=== PATIENT | female | born 1945 ===

== ENCOUNTER 2021-04-13 14:25 | Outpatient (CLI) | payer MEDICARE, SELFPAY ==
[2021-04-13 14:53] LABS: Hemoglobin 14.2 g/dL (12.0-15.0); Mean Corpuscular HGB Conc 30.9 g/dl (32-36); Mean Corpuscular Hemoglobin 30.6 pg (26-34); Mean Corpuscular Volume 99.1 fl (80-100); Mean Platelet Volume 10.7 fl (7.4-10.4); Platelet Count Result 273 k/mm3 (150-375); Red Blood Count 4.64 M/mm3 (4.2-5.4); White Blood Count 6.7 K/mm3 (4.5-10.0)
[2021-04-13 16:06] LABS: Add Urine Microscopic? YES; Alanine Aminotransferase 34 U/L (4-35); Albumin Level 4.1 g/dL (3.5-5.1); Alkaline Phosphatase 129 U/L (38-126); Anion Gap 4 mmol/L (8-16); Appearance Urine Clear (Clear); Aspartate Amino Transferase 60 U/L (14-36); Bilirubin Urine Negative (Negative); Bilirubin,Total 0.4 mg/dL (0.2-1.3); Blood Urea Nitrogen 22 mg/dL (7-17); CRP 0.7 mg/dL (<1.0); Carbon Dioxide 32 mmol/L (22-30); Chloride 99 mmol/L (98-107); Color Urine Yellow (Yellow); Estimated Glomerular Filt Rate > 60; Glucose 167 mg/dL (65-110); Glucose Urine UA Negative (Negative); Ketones Urine Negative (Negative); Leukocyte Esterase Ur 1+ LEU/UL (Negative); Mucus Urine Rare /lpf; Nitrate Urine Negative (Negative); Potassium 4.6 mmol/L (3.4-5.0); Protein Urine Negative (Negative); RBC Urine 0-2 /hpf (0-2); Sodium 135 mmol/L (137-145); Specific Grav Ur 1.019 (1.001-1.035); Squamous Epithelial Cell Urine Few /hpf (Few); Urobilinogen Urine Negative mg/dL (<2.0)
[2021-04-13 16:07] LABS: Blood Urine Negative (Negative)
[2021-04-13 16:24] LABS: Erythrocyte Sedimentation Rate 3 mm/hr (0-20)
[2021-04-15 14:27] LABS: NIL 0.02 IU/mL; Quantiferon TB Plus, 1T NEGATIVE (NEGATIVE)
== END 2021-04-13 14:26 | disposition home or self-care (01) ==
LOC: ANHLAB 14:28
PROVIDERS: Internal Medicine; Visit Provider Internal Medicine Hematology & Oncology
DX: M19.90 Unspecified osteoarthritis, unspecified site (principal); L40.50 Arthropathic psoriasis, unspecified
CPT/HCPCS: 36415; 80053; 81001; 85027; 85652; 86140; 86480; 87086

== ENCOUNTER 2021-11-11 10:37 | Outpatient (CLI) | payer MEDICARE, SELFPAY ==
[2021-11-11 14:29] LABS: Appearance Urine Clear (Clear); Bilirubin Urine Negative (Negative); Blood Urine Negative (Negative); Color Urine Yellow (Yellow); Glucose Urine UA Negative (Negative); Ketones Urine Negative (Negative); Leukocyte Esterase Ur Trace LEU/UL (Negative); Nitrate Urine Negative (Negative); Protein Urine Negative (Negative); Urobilinogen Urine 0.2 mg/dL (<2.0); pH Urine 5.5 (5.0-9.0)
[2021-11-11 14:34] LABS: Bacteria Urine Trace /hpf; Mucus Urine Rare /lpf; RBC Urine 0-2 /hpf (0-2); Squamous Epithelial Cell Urine Few /hpf (Few)
[2021-11-11 14:35] LABS: Add Urine Microscopic? YES
[2021-11-11 14:36] LABS: Alanine Aminotransferase 36 U/L (6-35); Albumin Level 4.4 g/dL (3.5-5.1); Alkaline Phosphatase 110 U/L (38-126); Anion Gap 11 mmol/L (8-16); Aspartate Amino Transferase 35 U/L (14-36); Bilirubin,Total 0.4 mg/dL (0.2-1.3); Blood Urea Nitrogen 25 mg/dL (7-17); CRP < 0.5 mg/dL (<1.0); Calcium 9.3 mg/dL (8.4-10.2); Carbon Dioxide 24 mmol/L (22-30); Chloride 100 mmol/L (98-107); Estimated Glomerular Filt Rate > 60; Glucose 197 mg/dL (65-110); Potassium 4.7 mmol/L (3.4-5.0); Sodium 135 mmol/L (137-145)
== END 2021-11-11 10:38 | disposition home or self-care (01) ==
LOC: ANHLAB 10:38
PROVIDERS: Visit Provider Internal Medicine
DX: L40.50 Arthropathic psoriasis, unspecified (principal); M19.90 Unspecified osteoarthritis, unspecified site
CPT/HCPCS: 36415; 80053; 81001; 86140

== ENCOUNTER 2021-11-12 13:10 | Outpatient (CLI) | payer MEDICARE, SELFPAY ==
[2021-11-12 13:25] LABS: Hematocrit 44.3 % (37.0-47.0); Mean Corpuscular HGB Conc 31.6 g/dl (32-36); Mean Corpuscular Volume 95.1 fl (80-100); Mean Platelet Volume 10.8 fl (7.4-10.4); Platelet Count Result 277 k/mm3 (150-375); Red Blood Count 4.66 M/mm3 (4.2-5.4); Red Cell Distribution Width 12.9 % (11.5-14.5); White Blood Count 5.9 K/mm3 (4.5-10.0)
[2021-11-12 14:11] LABS: Erythrocyte Sedimentation Rate 4 mm/hr (0-20)
== END 2021-11-12 13:11 | disposition home or self-care (01) ==
LOC: ANHLAB 13:19
PROVIDERS: Visit Provider Internal Medicine
DX: M19.90 Unspecified osteoarthritis, unspecified site (principal); L40.50 Arthropathic psoriasis, unspecified
CPT/HCPCS: 36415; 85027; 85652

== ENCOUNTER 2022-07-14 10:17 | Outpatient (CLI) | payer MEDICARE, SELFPAY ==
[2022-07-14 10:32] LABS: Hemoglobin 15.5 g/dL (12.0-15.0); Mean Corpuscular HGB Conc 32.3 g/dl (32-36); Mean Corpuscular Hemoglobin 29.8 pg (26-34); Mean Corpuscular Volume 92.1 fl (80-100); Mean Platelet Volume 9.8 fl (7.4-10.4); Platelet Count Result 451 k/mm3 (150-375); Red Blood Count 5.21 M/mm3 (4.2-5.4); Red Cell Distribution Width 14.6 % (11.5-14.5); White Blood Count 9.1 K/mm3 (4.5-10.0)
[2022-07-14 11:29] LABS: Appearance Urine Clear (Clear); Bacteria Urine None Seen /hpf; Bilirubin Urine Negative (Negative); Blood Urine Negative (Negative); Color Urine Yellow (Yellow); Glucose Urine UA 3+ mg/dL (Negative); Ketones Urine Negative (Negative); Leukocyte Esterase Ur 1+ LEU/UL (Negative); Nitrate Urine Negative (Negative); Non Pathogenic Casts 0-2; Protein Urine Negative (Negative); RBC Urine 0-2 /hpf (0-2); Specific Grav Ur 1.026 (1.001-1.035); Squamous Epithelial Cell Urine Occasional /hpf (Few)
[2022-07-14 11:33] LABS: Alanine Aminotransferase 24 U/L (6-35); Albumin Level 4.5 g/dL (3.5-5.1); Alkaline Phosphatase 176 U/L (38-126); Anion Gap 8 mmol/L (8-16); Aspartate Amino Transferase 24 U/L (14-36); Bilirubin,Total 0.4 mg/dL (0.2-1.3); Blood Urea Nitrogen 26 mg/dL (7-17); CRP 1.1 mg/dL (<1.0); Calcium 9.3 mg/dL (8.4-10.2); Carbon Dioxide 29 mmol/L (22-30); Chloride 97 mmol/L (98-107); Estimated Glomerular Filt Rate > 60; Glucose 240 mg/dL (65-110); Potassium 4.8 mmol/L (3.4-5.0); Sodium 134 mmol/L (137-145)
[2022-07-14 11:34] LABS: Add Urine Microscopic? YES
[2022-07-14 11:44] LABS: Erythrocyte Sedimentation Rate 3 mm/hr (0-20)
[2022-07-16 10:19] LABS: NIL 0.02 IU/mL; Quantiferon TB Plus, 1T NEGATIVE (NEGATIVE)
== END 2022-07-14 10:18 | disposition home or self-care (01) ==
LOC: ANHLAB 10:20
PROVIDERS: PCP Internal Medicine; Referring Provider Internal Medicine; Visit Provider Internal Medicine Hematology & Oncology
DX: M19.90 Unspecified osteoarthritis, unspecified site (principal); L40.50 Arthropathic psoriasis, unspecified; Z79.899 Other long term (current) drug therapy
CPT/HCPCS: 36415; 80053; 81001; 85027; 85652; 86140; 86480; 87086; 87088; 87147

== ENCOUNTER 2024-03-22 08:57 | Outpatient (CLI) | payer MEDICARE, SELFPAY ==
--- NOTE | ~2024-03-22 | XR_ITS ---
EXAMINATION: [id number] DATE: 03/22/2024 09:54 INDICATION: Multiple joint pain. TECHNIQUE: 2 views of left knee were obtained. COMPARISON: None. FINDINGS: There is a total left knee arthroplasty with patellar resurfacing in near-anatomic alignmen t. No fracture. No periprosthetic lucency to suggest loosening or infection. There is a small knee katina int effusion with loose bodies. IMPRESSION: 1. Total left knee arthroplasty in near-anatomic alignment. 2. Small knee joint effusion with loose bodies. Reviewed, dictated and finalized at location A. PING/RECEIVING MANAGER
--- NOTE | ~2024-03-22 | XR_ITS ---
EXAMINATION: XR elbow LT 2V, XR elbow RT 2V DATE: 03/22/2024 09:54 INDICATION: Multiple joint pain TECHNIQUE: 1. Anteroposterior and lateral views of the left elbow were obtained. 2. Anteroposterior and lateral views of the right elbow were obtained. COMPARISON: None. FINDINGS: Left elbow: Alignment is normal. No fracture. Mild osteoarthritis at the ulnotrochlear and proximal radioulnar ar ticulations of the elbow joint. No elbow joint effusion. Soft tissues are unremarkable. Right elbow: Alignment is normal. No fracture. Mild osteoarthritis at the ulnotrochlear and proximal radioulnar ar ticulations of the elbow joint. No elbow joint effusion. Couple phleboliths versus heterotopic ossicl es in the soft tissues at the dorsal aspect of the proximal right forearm. Soft tissues are otherwise unremarkable. IMPRESSION: 1. 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 No joint effusions or acute osseous abnormality. Reviewed, dictated and finalized at location B. L TACKER IMPRESSION: 1. 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 No joint effusions or acute oss eous abnormality.
--- NOTE | ~2024-03-22 | XR_ITS ---
XR ankle LT 2V 03/22/2024 09:54 Indication: Joint pain Procedure: 2 views left ankle Comparison: No prior studies for comparison. Findings: Osteopenia. No fracture or traumatic malalignment. There is a degenerative calcaneal enthes ophyte at the plantar surface. There are degenerative changes of the midfoot. No acute fracture or tr aumatic malalignment. Impression: 1: Mild osteoarthritis of the midfoot. Reviewed, dictated and finalized at location A. ER BUGGY LADLE Impression: 1: Mild osteoarthritis of the midfoot.
--- NOTE | ~2024-03-22 | XR_ITS ---
[id number] 03/22/2024 09:54 Indication: Joint pain Procedure: 2 views right knee Comparison: No prior studies for comparison. Findings: There is a right total knee arthroplasty. Prosthesis well seated in anatomic alignment. The re is patellar resurfacing. No significant joint effusion. No fracture or traumatic malalignment. Impression: 1: No acute bone or joint abnormality. Reviewed, dictated and finalized at location A. LASS FRAME TRUER Impression: 1: No acute bone or joint abnormality.
--- NOTE | ~2024-03-22 | XR_ITS ---
XR hip LT min 2V 03/22/2024 09:54 Indication: Left hip pain Procedure: 2 views left hip Comparison: No prior studies for comparison. Findings: There is mild-moderate osteoarthritis of the left hip. No fracture, subluxation or dislocat ion. There is osteitis pubis. No soft tissue abnormality. Impression: 1: Mild-moderate osteoarthritis of the left hip. Reviewed, dictated and finalized at location A. TENDER Impression: 1: Mild-moderate osteoarthritis of the left hip.
--- NOTE | ~2024-03-22 | XR_ITS ---
EXAMINATION: XR hand RT 2V, XR wrist RT 2V, XR hand LT 2V, XR wrist LT 2V DATE: 03/22/2024 10:06 INDICATION: Multiple joint pain TECHNIQUE: 1. Posteroanterior and lateral views of the affected wrist were obtained. 2. Dorsal palmar and lateral views of the affected hand were obtained. 3. Posteroanterior and lateral views of the affected wrist were obtained. 4. Dorsal palmar and lateral views of the affected hand were obtained. COMPARISON: FINDINGS: Right hand and wrist: No fracture. There is widening of the scapholunate interval. Borderline scapholunate angle and modera te osteoarthritis at the radiolunate articulation with subarticular cystlike change underlying the bari vern fossa. 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 There is additional polyarticular osteoarthritis at the right hand, severe at the second metacarpophalangeal joint, moderate at the first and third meta carpophalangeal joints and mild at the triscaphe, first carpometacarpal and at the interphalangeal katina ints. No erosions to suggest an inflammatory arthritis. No focal soft tissue swelling. Left hand and wrist: Alignment of the left hand and wrist is normal. No fracture identified. Severe osteoarthritis at the triscaphe and first carpal metacarpal joints. Moderate osteoarthritis at the third distal interphalan geal joint and mild osteoarthritis at the wrist and multiple metacarpophalangeal and remaining interp halangeal joints. No erosions to suggest an inflammatory arthritis. No focal soft tissue swelling. IMPRESSION: 1. Polyarticular osteoarthritis at the bilateral hands and wrists, severe at the right second metacar pophalangeal joint and at the left triscaphe and first carpal metacarpal joints and mild to moderate at multiple additional joints at the bilateral hands and wrists. 2. 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 Reviewed, dictated and finalized at location B. SHEAR OPERATOR IMPRESSION: 1. Polyarticular osteoarthritis at the bilateral hands and wrists, severe at th e right second metacarpophalangeal joint and at the left triscaphe and first ca rpal metacarpal joints and mild to moderate at multiple additional joints at th e bilateral hands and wrists. 2. 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 IMPRESSION: 1. Polyarticular osteoarthritis at the bilateral hands and wrists, severe at th e right second metacarpophalangeal joint and at the left triscaphe and first ca rpal metacarpal joints and mild to moderate at multiple additional joints at th e bilateral hands and wrists. 2. 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 IMPRESSION: 1. Polyarticular osteoarthritis at the bilateral hands and wrists, severe at th e right second metacarpophalangeal joint and at the left triscaphe and first ca rpal metacarpal joints and mild to moderate at multiple additional joints at th e bilateral hands and wrists. 2. 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
--- NOTE | ~2024-03-22 | XR_ITS ---
EXAMINATION: XR foot LT 2V DATE: 03/22/2024 10:06 INDICATION: Multiple joint pain. TECHNIQUE: 2 views of left foot were obtained. COMPARISON: Left foot radiographs 04/03/2018 FINDINGS: Alignment is normal. No fracture. There are changes of arthrodesis of first metatarsophalan geal joint with dorsal plate and screws. There is severe osteoarthritis of second and third tarsometa tarsal joints. There is mild to moderate osteoarthritis of some of the other midfoot joints. There ar e enthesophytes at the posterior and plantar aspects of calcaneal tuberosity. IMPRESSION: 1. Polyarticular osteoarthritis. 2. Arthrodesis of first metatarsophalangeal joint. Reviewed, dictated and finalized at location A. MENTAL RAIL INSTALLER
--- NOTE | ~2024-03-22 | XR_ITS ---
EXAMINATION: XR hip RT min 2V DATE: 03/22/2024 09:54 INDICATION: Multiple joint pain. TECHNIQUE: 2 views of right hip were obtained. COMPARISON: Right hip radiographs 04/03/2018 FINDINGS: Alignment is normal. No fracture. There is mild right hip osteoarthritis. Osteitis pubis is noted. IMPRESSION: 1. Mild right hip osteoarthritis. Reviewed, dictated and finalized at location A. S NOTES DEVELOPER
--- NOTE | ~2024-03-22 | XR_ITS ---
EXAMINATION: XR ankle RT 2V, XR foot RT 2V DATE: 03/22/2024 09:54 INDICATION: Multiple joint pain TECHNIQUE: 1. Anteroposterior and lateral view of the right ankle were obtained. 2. Dorsoplantar and lateral views of the right foot were obtained. COMPARISON: None. FINDINGS: Alignment of the right foot and ankle is normal. No fracture. Polyarticular osteoarthritis, moderate severity at the second and third tarsal metatarsal joints and minimal to mild at the right ankle and majority of the remaining joints in the right foot. No ankle joint effusion. Small Achilles and plant ar calcaneal spurs. The soft tissues are unremarkable. IMPRESSION: 1. Polyarticular osteoarthritis at the right foot and ankle, moderate at the second and third tarsal metatarsal joints and otherwise mild. 2. Achilles and plantar calcaneal enthesophytes. Reviewed, dictated and finalized at location B. LE CAPPING MACHINE OPERATOR IMPRESSION: 1. Polyarticular osteoarthritis at the right foot and ankle, moderate at the se cond and third tarsal metatarsal joints and otherwise mild. 2. Achilles and plantar calcaneal enthesophytes.
--- OUTSIDE RECORDS SUMMARY | 2024-03-22 09:21 | XMS_ITS | Clinical Summary ---
Author Organization [facility] [employer] Address [facility] [facility] [place] [address] Care Team Providers Care Excavation Laborer Name Role Phone Fide Brink MD Unavailable [phone] Lynn Lubin MD Unavailable [phone] Dora Arnold MD Primary Care Provid er Source Comments [facility],non-owned Affiliates and Associated Physician Practices is amultiple site organization consisting of ambulatory clinics and hospital sitesin [place], [place], [place] and [place]. This disclosure is being madepursuant to the Care Everywhere program and may not contain all information available regarding this patient. Last updated 17.[facility] [employer] Allergies Active Allergy Reactions Criticality Noted Date Comments Adhesive Sensitivity Skin Reactions 08/28/2018 Silk tape will pull skin off Cyclobenzaprine Other 08/13/2018 drowsiness Adalimumab Shortness of Breath High 08/15/2011 Apremilast Other 08/13/2018 Skin on hands peeled off Other Anaphylaxis High 09/03/2013 Extra gum causes throat closing Sulfa Drugs Rash Low 08/15/2011 Tramadol Urticaria 08/15/2011 Trimethoprim Rash,Other Low 08/15/2011 restlessness Medications * Be aware that medications may not be up to date on this document. Alwaysverify current medications with the patient. Medication Sig Dispensed Refills Start Date End Date Status primidone (MYSOLINE) 50 MG tablet Take 50 mg by mouth at bedtime. Active lisinopril-hydrochlor othiazide (PRINZIDE; ZESTORETIC) 20-12.5 MG tablet Take 1 Tab by mouth once daily. Active propranolol (INDERAL) 10 MG tablet Take 10 mg by mouth at bedtime Active solifenacin (VESICARE) 5 MG tablet 01/13/2018 Active mirabegron ER 24hr (MYRBETRIQ) 25 MG tablet Take 25 mg by mouth once daily 01/09/2017 Active DULoxetine (CYMBALTA) 30 MG capsule Take 30 mg by mouth once daily 06/06/2018 Active gabapentin (NEURONTIN) 600 MG tablet Take 600 mg by mouth once daily 06/29/2018 Active methIMAzole (TAPAZOLE) 5 MG tablet Take 1 tablet one 4 days , Monday thru . 03/27/2018 Active Multiple Vitamins-Minerals (CENTRUM SILVER 50+WOMEN PO) one daily 06/22/2009 Active mometasone (NASONEX) 50 MCG/ACT nasal spray 50 mcg 06/22/2009 Active Calcium Carb-Cholecalciferol (CALCIUM + D3) 600-200 MG-UNIT take 1 Tablet by Oral route every day 06/22/2009 Active HYDROcodone-acetamino phen (NORCO) 10-325 MG tablet Take 1 tablet by mouth every 6 hours as needed for Pain 50 tablet 08/30/2018 Active Active Problems Problem Noted Date Diagnosed Date Primary osteoarthritis of left knee 08/28/2018 Traumatic hematoma of right knee 11/10/2014 Follow-up examination, surgery Open debridement and patellar replacement, left knee 06/25/2014 Right knee pain 04/17/2013 Diabetes mellitus type II, c ontrolled, with no complications 08/15/2011 Foot pain 08/15/2011 Edema of foot 08/15/2011 Immunizations Name Administration Dates Next Due INFLUENZA VACCINE, QUADR. (F LUZONE; FLULAVAL; FLUARIX; AFLURIA QUADRIVALENT; 6MO+), 0.5 ML (IIV4) 11/11/2014 Social History Tobacco Use Types Packs/Day Years Used Date Smoking Tobacco: Never Smokeless Tobacco: Never Alcohol Use Standard Drinks/Week Comments No 0 (1 standard drink = 0.6 oz pur e alcohol) social ETOH twice a year Sex and Gender Information Value Date Recorded Sex Assigned at Not on file Gender Identity Not on file Sexual Orientation Not on file Last Filed Vital Signs Vital Sign Reading Time Taken Comments Blood Pressure 147/86 09/12/2018 9:14 PM CDT Pulse 100 09/12/2018 9:14 PM CDT Temperature 36.8 ??C (98.3 ??F) 09/12/2018 6:20 PM CD T Respiratory Rate 18 09/12/2018 9:14 PM CDT Oxygen Saturation 99% 09/12/2018 9:14 PM CDT Inhaled Oxygen Concentration - - Weight 101.6 kg (224 lb) 09/12/2018 6:20 PM CDT Height 162.6 cm (5' 4 ) 09/12/2018 6:20 PM CDT Body Mass Index 38.45 09/12/2018 6:20 PM CDT Plan of Treatment Health Maintenance Due Date Last Done Comments BONE DENSITY TESTING 1945 HEPATITIS C SCREENING 05/05/1965 DTAP/TDAP/TD VACCINES (1 - Tdap) 05/09/1966 PNEUMOCOCCAL VACCINE 50+ (1 of 2 - PCV) 05/09/1966 DIABETES-STATIN 1987 ZOSTER VACCINE (1 of 2) 05/09/1997 DIABETES RETINOPATHY SCREENING 08/15/2018 DIABETES-FOOT EXAM WITH MONOFILAMENT 08/15/2018 DIABETES-HGB A1C 03/01/2019 08/29/2018, , 09/25/2014 DIABETES-SERUM CREATININE 09/13/20192018, 11/11/2014, 11/10/2014, Additional history exists Respiratory Syncytial Virus (RSV) Vaccine Pt: or over 60 yrs (1 - 1-dose 75+ series) 05/09/2022 COVID-19 VACCINE ( - 2023- season) 2023 INFLUENZA VACCINE (#1) 2023 8, 11/25/2016, 11/23/2015, Additional history exists DEPRESSION SCREENING 02/21/2024 DIABETES - URINE PROTEIN SCREENING 02/21/2024 MEDICARE AWV ? CALENDAR YEAR 2024 HEPATITIS B VACCINE Aged Out No longe r eligible based on patient's age to complete this topic HIB VACCINE Aged Out No longer eligi ble based on patient's age to complete this topic HPV VACCINE Aged Out No longer eligi ble based on patient's age to complete this topic MENINGOCOCCAL (Group B) VACCINE Aged Out No longer eligible based on patient's age to complete this topic MENINGOCOCCAL VACCINE Aged Out No jade tawanda eligible based on patient's age to complete this topic Medical Devices Implanted Type Area Financial Institution Manager Device Identifier Shelf Expiration Date Model / Serial / Lot Hawk Bone Fair Play Hv Implanted:Qty: 1 on 03/18/2014 by Fide Brink MD at [facility] Left: [employer] 09/20/2015 [id number] / / [id number] Arcom Patella Single 1/4 Inch Peg 3mm X 9 Mm Implanted:Qty: 1 on 03/18/2014 by Fide Brink MD at [facility] Left: [employer] 01/19/2019 [id number] / / [id number] Hawk Bone Fair Play Hv Implanted:Qty: 2 on 09/24/2014 by Fide Brink MD at [facility] Right: [employer] 04/19/2016 [id number] / / [id number] Ins Kn Vangurd Fem Cocr R-Intlok 65.0mm Implanted:Qty: 1 on 09/24/2014 by Fide Brink MD at [facility] Right: [employer] 08/19/2024 [id number] / / [id number] Butn Pat Arcom Wire Polyeth Med 34 X 9mm Implanted:Qty: 1 on 09/24/2014 by Fide Brink MD at [facility] Right: [employer] 06/24/2019 [id number] / / [id number] Tibial I Beam Fix Bar 75mm Implanted:Qty: 1 on 09/24/2014 by Fide Brink MD at [facility] Right: [employer] 03/22/2024 [id number] / / [id number] Implt Tib Bear Vangrd Implanted:Qty: 1 on 09/24/2014 by Fide Brink MD at [facility] Right: [employer] 09/19/2018 [id number] / / [id number] Cmpnt Ptlr 34mm 1 Pg Wire Ascnt Arcm Kn Implanted:Qty: 1 on 08/28/2018 by Fide Brink MD at [facility] Left: Knee [employer] 07/14/2023 [id number] / / [id number] Cmpnt Fem Kn Lt Cr Cmnt Prm Vngrd Intlk Implanted:Qty: 1 on 08/28/2018 by Fide Brink MD at [facility] Left: Knee [employer] 04/19/2028 [id number] / / [id number] Tray Tib 75mm Kn Cocr I Beam Implanted:Qty: 1 on 08/28/2018 by Fide Brink MD at [facility] Left: Knee [employer] 06/04/2028 [id number] / / [id number] Tibial Bearing Implanted:Qty: 1 on 08/28/2018 by Fide Brink MD at [facility] Left: Knee 01/09/2022 [id number] / / [id number] Cmnt Bone Cblt 40gm Hvisc Strl Implanted:Qty: 1 on 08/28/2018 by Fide Brink MD at [facility] Left: Knee [employer] 08/16/2019 600-15-000 / / [id number] Hawk Bone Fair Play-G Hv 40/20 Implanted:Qty: 1 on 08/28/2018 by Fide Brink MD at [facility] Left: Knee [employer] 12/20/2019 600-15-100 / / [id number] Procedures Procedure Name Priority Date/Time Associated Diagnosis Comments COMPREHENSIVE METABOLIC PANEL STAT 09/12/2018 6:57 PM CDT HEMOGLOBIN A1C Routine 08/29/2018 4:14 AM CDT from Last 3 Months or Most Recently Relevant to Health Maintenance Results * (ABNORMAL) COMPREHENSIVE METABOLIC PANEL (09/12/2018 6:57 PM CDT) [facility] Glucose 127(H) 74 - 106 mg/dL 09/12/2018 7:36 PM CDT [facility] Sodium 136 136 - 145 mmol/L 09/12/2018 7:36 PM CDT [facility] Potassium 4.6 3.5 - 5.1 mmol/L 09/12/2018 7:36 PM CDT [facility] Chloride 97(L) 98 - 107 mmol/L 09/12/2018 7:36 PM CDT [facility] CO2 26 23 - 31 mmol/L 09/12/2018 7:36 PM CDT [facility] Calcium 10.8(H) 8.4 - 10.2 mg/dL 09/12/2018 7:36 PM CDT [facility] Anion Gap 13 8 - 16 mmol/L 09/12/2018 7:36 PM CDT [facility] BUN 26(H) 9.8 - 20.1 mg/dL 09/12/2018 7:36 PM CDT [facility] Creatinine 0.70 0.55 - 1.02 mg/dL 09/12/2018 7:36 PM T [facility] Alkaline Phosphatase 124 40 - 150 U/L 09/12/2018 7:36 PM CDT [facility] ALT 17 13 - 61 U/L 09/12/2018 7:36 PM CDT [facility] AST 20 5 - 34 U/L 09/12/2018 7:36 PM CDT [facility] Protein Total 7.4 6.4 - 8.3 gm/dL 09/12/2018 7:36 PM CDT [facility] Albumin 4.0 3.2 - 4.6 gm/dL 09/12/2018 7:36 PM CDT [facility] Bilirubin Total 0.4 0.2 - 1.0 mg/dL 09/12/2018 7:36 PM CDT [facility] eGFR by MDRD >60 mL/min/1.7 3m2 09/12/2018 7:36 PM CDT [facility] eGFR by MDRD >60 mL/min/1.7 3m2 09/12/2018 7:36 PM CDT [facility] Blood BLOOD SPECIMEN / Unknown Venipuncture / Unknown 09/12/2018 6:57 PM CDT 09/12/2018 7:17 PM CDT Donnie Singh PERCOLATOR OPERATOR-[facility] - CHEMISTRY ORDERABLES [facility] [id number] [place] [address] * (ABNORMAL) HEMOGLOBIN A1C (08/29/2018 4:14 AM CDT) Hemoglobin A1c 6.3(H) 4.0 - 6.1 % 08/29/2018 5:03 AM CDT [facility] Estimated Average Glucose 134 mg/dL 08/29/2018 5:03 AM CDT [facility] Blood BLOOD SPECIMEN / Unknown Venipuncture / Unknown 08/29/2018 4:14 AM CDT 08/29/2018 4:48 AM CDT Narrative [facility] - 08/29/2018 5:03 AM CDT Attention clinician: ??Reference Range has changed. Andre Mckeon MD LAB - CHEMISTRY JULES MESSINA [facility] [address] [place] [address] from Last 3 Months or Most Recently Relevant to Health Maintenance Advance Directives * Full Code (Latest Code Status on File) Date Activated Date Inactivated Comments 08/28/2018 3:23 PM 08/30/2018 5:12 PM * Full Code Date Activated Date Inactivated Comments 11/10/2014 4:45 PM 11/12/2014 3:14 PM * Full Code Date Activated Date Inactivated Comments 11/10/2014 1:28 PM 11/10/2014 4:45 PM * Full Code Date Activated Date Inactivated Comments 09/24/2014 11:51 AM 09/27/2014 2:58 PM * Full Code Date Activated Date Inactivated Comments 03/18/2014 4:09 PM 03/31/2014 2:59 PM Care Teams Excavation Laborer Relationship Specialty Start Date End Date Dora Arnold MD [address] [place] [address] PCP - General Internal Medicine 03/06/14 Fide Brink MD Orthopedic Surgery 03/16/12 Lynn Lubin MD [address] [place] [address] Orthopedic Surgery 06/12/13
--- OUTSIDE RECORDS SUMMARY | 2024-03-22 09:21 | XMS_ITS | Patient Health Summary ---
Author Organization [facility] Address [address] [place] [address] Care Team Providers Care Social Services Name Role Phone Fide Brink MD Unavailable [phone] Lynn Lubin MD Unavailable [phone] Dora Arnold MD Primary Care Provid er Note from [facility],non-owned Affiliates and Associated Physician Practices is amultiple site organization consisting of ambulatory clinics and hospital sitesin [place], [place], [place] and [place]. This disclosure is being madepursuant to the Care Everywhere program and may not contain all information available regarding this patient. Last updated 17.[facility] Allergies * Adhesive Sensitivity(Skin Reactions) * Cyclobenzaprine(Other) * Adalimumab(Shortness of Breath) -High Criticality * Apremilast(Other) * Other(Anaphylaxis) -High Criticality * Sulfa Drugs(Rash) -Low Criticality * Tramadol(Urticaria) * Trimethoprim(Rash,Other) -Low Criticality * Hydrocodone-Acetaminophen(Itching),Inactive Medications * Be aware that medications may not be up to date on this document. Alwaysverify current medications with the patient. * primidone (MYSOLINE) 50 MG tablet Take 50 mg by mouth at bedtime. * lisinopril-hydrochlorothiazide (PRINZIDE; ZESTORETIC) 20-12.5 MG tablet Take 1 Tab by mouth once daily. * propranolol (INDERAL) 10 MG tablet Take 10 mg by mouth at bedtime * solifenacin (VESICARE) 5 MG tablet(Started 01/13/2018) * mirabegron ER 24hr (MYRBETRIQ) 25 MG tablet(Started 01/09/2017) Take 25 mg by mouth once daily * DULoxetine (CYMBALTA) 30 MG capsule(Started 06/06/2018) Take 30 mg by mouth once daily * gabapentin (NEURONTIN) 600 MG tablet(Started 06/29/2018) Take 600 mg by mouth once daily * methIMAzole (TAPAZOLE) 5 MG tablet(Started 03/27/2018) Take 1 tablet one 4 days , Monday thru . * Multiple Vitamins-Minerals (CENTRUM SILVER 50+WOMEN PO)(Started 06/22/2009) one daily * mometasone (NASONEX) 50 MCG/ACT nasal spray(Started 06/22/2009) 50 mcg * Calcium Carb-Cholecalciferol (CALCIUM + D3) 600-200 MG-UNIT(Started 06/22/2009) take 1 Tablet by Oral route every day * HYDROcodone-acetaminophen (NORCO) 10-325 MG tablet(Started 08/30/2018) Take 1 tablet by mouth every 6 hours as needed for Pain Active Problems Problem Noted Date Diagnosed Date Primary osteoarthritis of left knee 08/28/2018 Traumatic hematoma of right knee 11/10/2014 Follow-up examination, surgery Open debridement and patellar replacement, left knee 06/25/2014 Right knee pain 04/17/2013 Diabetes mellitus type II, c ontrolled, with no complications 08/15/2011 Foot pain 08/15/2011 Edema of foot 08/15/2011 Immunizations * INFLUENZA VACCINE, QUADR. (FLUZONE; FLULAVAL; FLUARIX; AFLURIA QUADRIVALENT; 6MO+), 0.5 ML (IIV4)(Given 11/11/2014) Social History Tobacco Use Types Packs/Day Years [...] Mass Index 38.45 09/12/2018 6:20 PM CDT Medical Devices Implanted Type Area Installations Inspector Device Identifier Shelf Expiration Date Model / Serial / Lot [place] Hv Implanted:Qty: 1 on 03/18/2014 by Fide Brink MD at [facility] Left: Knee [employer] 09/20/2015 [id number] / / [id number] Arcom Patella Single 1/4 Inch Peg 3mm X 9 Mm Implanted:Qty: 1 on 03/18/2014 by Fide Brink MD at [facility] Left: Knee [employer] 01/19/2019 [id number] / / [id number] [place] Hv Implanted:Qty: 2 on 09/24/2014 by Fide Brink MD at [facility] Right: Knee [employer] 04/19/2016 [id number] / / [id number] Ins Kn Vangurd Fem Cocr R-Intlok 65.0mm Implanted:Qty: 1 on 09/24/2014 by Fide Brink MD at [facility] Right: Knee [employer] 08/19/2024 [id number] / / [id number] Butn Pat Arcom Wire Polyeth Med 34 X 9mm Implanted:Qty: 1 on 09/24/2014 by Fide Brink MD at [facility] Right: Knee [employer] 06/24/2019 [id number] / / [id number] Tibial I Beam Fix Bar 75mm Implanted:Qty: 1 on 09/24/2014 by Fide Brink MD at [facility] Right: Knee [employer] 03/22/2024 [id number] / / [id number] Implt Tib Bear Vangrd Implanted:Qty: 1 on 09/24/2014 by Fide Brink MD at [facility] Right: Knee [employer] 09/19/2018 [id number] / / [id number] Cmpnt Ptlr 34mm 1 Pg Wire Ascnt Arcm Kn Implanted:Qty: 1 on 08/28/2018 by Fide Brink MD at [facility] Left: Knee Juan [employer] 07/14/2023 [id number] / / [id number] Cmpnt Fem Kn Lt Cr Cmnt Prm Vngrd Intlk Implanted:Qty: 1 on 08/28/2018 by Fide Brink MD at [facility] Left: Knee [employer] 04/19/2028 [id number] / / [id number] Tray Tib 75mm Kn Cocr I Beam Implanted:Qty: 1 on 08/28/2018 by Fide Brink MD at [facility] Left: Knee [employer] 06/04/2028 [id number] / / [id number] Tibial Bearing Implanted:Qty: 1 on 08/28/2018 by Fide Brink MD at [facility] Left: Knee 01/09/2022 [id number] / / [id number] Cmnt Bone Cblt 40gm Hvisc Strl Implanted:Qty: 1 on 08/28/2018 by Fide Brink MD at [facility] Left: Knee [employer] 08/16/2019 [id number] / / [id number] [place]-G Hv 40/20 Implanted:Qty: 1 on 08/28/2018 by Fide Brink MD at [facility] Left: Knee [employer] 12/20/2019 600-15-100 / / [id number] Procedures * COMPREHENSIVE METABOLIC PANEL(Performed 09/12/2018) * CBC W AUTO DIFFERENTIAL(Performed 09/12/2018) * GLUCOSE - POINT OF CARE(Performed 08/30/2018) * GLUCOSE - POINT OF CARE(Performed 08/30/2018) * PT-INR(Performed 08/30/2018) * HGB HCT PANEL(Performed 08/30/2018) * GLUCOSE - POINT OF CARE(Performed 08/29/2018) * PT-INR(Performed 08/29/2018) * GLUCOSE - POINT OF CARE(Performed 08/29/2018) * HEMOGLOBIN A1C(Performed 08/29/2018) * HGB HCT PANEL(Performed 08/29/2018) * GLUCOSE - POINT OF CARE(Performed 08/28/2018) * GLUCOSE - POINT OF CARE(Performed 08/28/2018) * ENDOTRACHEAL TUBE NOTE(Performed 08/28/2018) * ARTHROPLASTY TOTAL KNEE REVISION(Performed 08/28/2018) * CBC W AUTO DIFFERENTIAL(Performed 08/13/2018) Performed for Preop examination * CULTURE MSSA/MRSA(Performed 08/13/2018) Performed for Preop examination * GLUCOSE - POINT OF CARE(Performed 11/12/2014) * GLUCOSE - POINT OF CARE(Performed 11/12/2014) * PT-INR(Performed 11/12/2014) Performed for Traumatic hematoma of right knee, initial encounter * GLUCOSE - POINT OF CARE(Performed 11/11/2014) * GLUCOSE - POINT OF CARE(Performed 11/11/2014) * GLUCOSE - POINT OF CARE(Performed 11/11/2014) * ECHOCARDIOGRAM 2D WITH DOPPLER(Performed 11/11/2014) Performed for Edema of foot * GLUCOSE - POINT OF CARE(Performed 11/11/2014) * GLUCOSE - POINT OF CARE(Performed 11/11/2014) * PT-INR(Performed 11/11/2014) Performed for Knee pain, acute, right, Leg pain, diffuse, right, Traumatic hematoma of knee, Diabetes mellitus type II, controlled, with no complications (HCC), Edema of foot, Right knee pain, Follow-up examination, 03-18-14 surgery Open debridement and patellar replacement, left knee * C-REACTIVE PROTEIN SENSITIVE(Performed 11/11/2014) * BASIC METABOLIC PANEL (CALCIUM TOTAL)(Performed 11/11/2014) Performed for Knee pain, acute, right, Leg pain, diffuse, right, Traumatic hematoma of knee, Diabetes mellitus type II, controlled, with no complications (HCC), Edema of foot, Right knee pain, Follow-up examination, 1-27-15 surgery Open debridement and patellar replacement, left knee * CBC W AUTO DIFFERENTIAL(Performed 11/11/2014) Performed for Knee pain, acute, right, Leg pain, diffuse, right, Traumatic hematoma of knee, Diabetes mellitus type II, controlled, with no complications (HCC), Edema of foot, Right knee pain, Follow-up examination, 03-18-14 surgery Open debridement and patellar replacement, left knee * GLUCOSE - POINT OF CARE(Performed 11/10/2014) * GLUCOSE - POINT OF CARE(Performed 11/10/2014) * URINALYSIS REFLEX TO MICROSCOPIC NO CULTURE(Performed 11/10/2014) * VAS RIGHT VENOUS DUPLEX LE(Performed 11/10/2014) Performed for Knee pain, acute, right, Leg pain, diffuse, right * PT PTT PANEL(Performed 11/10/2014) * CULTURE BLOOD(Performed 11/10/2014) * XR KNEE RIGHT 2VW OR LESS(Performed 11/10/2014) Performed for Knee pain, acute, right * LACTIC ACID BLOOD(Performed 11/10/2014) * COMPREHENSIVE METABOLIC PANEL(Performed 11/10/2014) * CBC W AUTO DIFFERENTIAL(Performed 11/10/2014) * ERYTHROCYTE SEDIMENTATION RATE(Performed 11/10/2014) * CULTURE BLOOD(Performed 11/10/2014) * XR KNEE RIGHT 2VW OR LESS(Performed 10/15/2014) Performed for Follow-up examination, following other /right knee replacement [id number] * GLUCOSE - POINT OF CARE(Performed 09/27/2014) * GLUCOSE - POINT OF CARE(Performed 09/27/2014) * PT-INR(Performed 09/27/2014) * GLUCOSE - POINT OF CARE(Performed 09/26/2014) * GLUCOSE - POINT OF CARE(Performed 09/26/2014) * GLUCOSE - POINT OF CARE(Performed 09/26/2014) * GLUCOSE - POINT OF CARE(Performed 09/26/2014) * PT-INR(Performed 09/26/2014) * HGB HCT PANEL(Performed 09/26/2014) * GLUCOSE - POINT OF CARE(Performed 09/25/2014) * GLUCOSE - POINT OF CARE(Performed 09/25/2014) * GLUCOSE - POINT OF CARE(Performed 09/25/2014) * GLUCOSE - POINT OF CARE(Performed 09/25/2014) * GLUCOSE - POINT OF CARE(Performed 09/25/2014) * PT-INR(Performed 09/25/2014) * HEMOGLOBIN A1C(Performed 09/25/2014) * HGB HCT PANEL(Performed 09/25/2014) * GLUCOSE - POINT OF CARE(Performed 09/25/2014) * ARTHROPLASTY TOTAL KNEE(Performed 09/24/2014) Performed for Primary localized osteoarthrosis, lower leg * GLUCOSE - POINT OF CARE(Performed 09/24/2014) * GLUCOSE - POINT OF CARE(Performed 09/24/2014) * GLUCOSE - POINT OF CARE(Performed 09/24/2014) * PT PTT PANEL(Performed 09/24/2014) * PT-INR(Performed 08/27/2014) * GLUCOSE - POINT OF CARE(Performed 08/27/2014) * PT PTT PANEL(Performed 08/27/2014) * HGB HCT PANEL(Performed 08/13/2014) Performed for Preoperative examination * COMPREHENSIVE METABOLIC PANEL(Performed 08/13/2014) Performed for Preoperative examination * CULTURE MSSA/MRSA(Performed 08/13/2014) Performed for Preoperative examination * XR KNEE BILAT 2VW OR LESS(Performed 04/09/2014) Performed for Follow-up examination, following other surgery/post op/Open debridement and patellar replacement, left knee on [id number] * CARDIAC RHYTHM STRIP ORDER(Performed 04/01/2014) * GLUCOSE - POINT OF CARE(Performed 03/31/2014) * GLUCOSE - POINT OF CARE(Performed 03/31/2014) * PT-INR(Performed 03/31/2014) * GLUCOSE - POINT OF CARE(Performed 03/30/2014) * GLUCOSE - POINT OF CARE(Performed 03/30/2014) * PT-INR(Performed 03/30/2014) * PT PTT PANEL(Performed 03/30/2014) * CBC W AUTO DIFFERENTIAL(Performed 03/30/2014) * GLUCOSE - POINT OF CARE(Performed 03/29/2014) * GLUCOSE - POINT OF CARE(Performed 03/29/2014) * PT PTT PANEL(Performed 03/29/2014) * GLUCOSE - POINT OF CARE(Performed 03/28/2014) * PTT(Performed 03/28/2014) * GLUCOSE - POINT OF CARE(Performed 03/28/2014) * GLUCOSE - POINT OF CARE(Performed 03/28/2014) * PTT(Performed 03/28/2014) * PT PTT PANEL(Performed 03/28/2014) * GLUCOSE - POINT OF CARE(Performed 03/27/2014) * GLUCOSE - POINT OF CARE(Performed 03/27/2014) * GLUCOSE - POINT OF CARE(Performed 03/27/2014) * PT PTT PANEL(Performed 03/27/2014) * CBC W AUTO DIFFERENTIAL(Performed 03/27/2014) * GLUCOSE - POINT OF CARE(Performed 03/26/2014) * PT PTT PANEL(Performed 03/26/2014) * GLUCOSE - POINT OF CARE(Performed 03/26/2014) * GLUCOSE - POINT OF CARE(Performed 03/26/2014) * PT PTT PANEL(Performed 03/26/2014) * GLUCOSE - POINT OF CARE(Performed 03/26/2014) * PT PTT PANEL(Performed 03/26/2014) * PTT(Performed 03/25/2014) * GLUCOSE - POINT OF CARE(Performed 03/25/2014) * PTT(Performed 03/25/2014) * PT-INR(Performed 03/25/2014) * GLUCOSE - POINT OF CARE(Performed 03/25/2014) * BASIC METABOLIC PANEL (CALCIUM TOTAL)(Performed 03/25/2014) * PT PTT PANEL(Performed 03/25/2014) * GLUCOSE - POINT OF CARE(Performed 03/24/2014) * GLUCOSE - POINT OF CARE(Performed 03/24/2014) * PTT(Performed 03/24/2014) * PTT(Performed 03/24/2014) * GLUCOSE - POINT OF CARE(Performed 03/24/2014) * VAS BILATERAL VENOUS DUPLEX LE(Performed 03/24/2014) Performed for Pulmonary emboli (HCC) * DIFFERENTIAL MANUAL(Performed 03/24/2014) * PT PTT PANEL(Performed 03/24/2014) * CBC W AUTO DIFFERENTIAL(Performed 03/24/2014) * PTT(Performed 03/23/2014) * GLUCOSE - POINT OF CARE(Performed 03/23/2014) * PT PTT PANEL(Performed 03/23/2014) * GLUCOSE - POINT OF CARE(Performed 03/23/2014) * PT PTT PANEL(Performed 03/23/2014) * CBC W AUTO DIFFERENTIAL(Performed 03/23/2014) * GLUCOSE - POINT OF CARE(Performed 03/22/2014) * PTT(Performed 03/22/2014) * GLUCOSE - POINT OF CARE(Performed 03/22/2014) * PT PTT PANEL(Performed 03/22/2014) * CBC W AUTO DIFFERENTIAL(Performed 03/22/2014) * PT PTT PANEL(Performed 03/21/2014) * CBC W AUTO DIFFERENTIAL(Performed 03/21/2014) * CULTURE VRE(Performed 03/21/2014) * CULTURE MRSA(Performed 03/21/2014) * GLUCOSE - POINT OF CARE(Performed 03/21/2014) * ECHOCARDIOGRAM 2D WITH DOPPLER(Performed 03/21/2014) Performed for Pulmonary embolism and infarction (HCC) * CT ANGIO CHEST PULM EMBOLISM(Performed 03/21/2014) Performed for Diabetes mellitus type II, controlled, with no complications (HCC), Right knee pain * MAGNESIUM BLOOD(Performed 03/21/2014) * BASIC METABOLIC PANEL (CALCIUM TOTAL)(Performed 03/21/2014) * HGB HCT PANEL(Performed 03/21/2014) * GLUCOSE - POINT OF CARE(Performed 03/20/2014) * GLUCOSE - POINT OF CARE(Performed 03/20/2014) * GLUCOSE - POINT OF CARE(Performed 03/19/2014) * GLUCOSE - POINT OF CARE(Performed 03/19/2014) * GLUCOSE - POINT OF CARE(Performed 03/18/2014) * PT EVAL AND TREAT(Performed 03/18/2014) * IRRIGATION AND DEBRIDEMENT KNEE WITH WOUND CLOSURE(Performed 03/18/2014) Performed for Sprain of medial collateral ligament of knee * EKG 12-LEAD(Performed 03/18/2014) Performed for Preoperative examination * BASIC METABOLIC PANEL (CALCIUM TOTAL)(Performed 03/18/2014) Performed for Preoperative examination * XR KNEE LEFT 2VW OR LESS(Performed 03/12/2014) Performed for Left knee pain * BUNIONECTOMY (HALLUX VALGUS CORRECTION)(Performed 09/03/2013) Performed for Ganglion, unspecified * BASIC METABOLIC PANEL (CALCIUM TOTAL)(Performed 09/03/2013) Performed for Preop examination * EKG 12-LEAD(Performed 09/03/2013) Performed for Preop examination * XR FOOT LEFT 3VW OR MORE(Performed 06/12/2013) Performed for Foot pain * EMG WITH NERVE CONDUCTION STUDY(Performed 03/21/2013) * US DOPPLER VENOUS LEG RIGHT(Performed 03/06/2012) * IMAGING/RADIOLOGY/XRAY RESULTS ORDER(Performed 03/06/2012) * XR FOOT RIGHT WT BEARING 2VW(Performed 12/28/2011) Performed for Plantar fasciitis, Heel pain, Equinus deformity of foot * XR FOOT LEFT WT BEARING 2VW(Performed 08/15/2011) Performed for Foot pain, Foot contusion, Edema of foot, Hypermobile joint syndrome of foot * EMG(Performed 08/15/2011) Performed for Foot pain, Foot contusion, Diabetes mellitus type II, controlled, with no complications (HCC), Numbness of foot * PT-INR(Performed 04/23/2008) Performed for Joint Pain-Unspec * URINALYSIS NO MICROSCOPIC NO CULTURE(Performed 04/23/2008) Performed for Joint Pain-Unspec * HGB HCT PANEL(Performed 04/23/2008) Performed for Joint Pain-Unspec Results * (ABNORMAL) CBC W AUTO DIFFERENTIAL (09/12/2018 6:57 PM CDT) Only the most recent of10 resultswithin the time period is included. WBC 7.4 4.4 - 10.7 x10E9/L 09/12/2018 7:22 PM CDT [facility] WBC Corrected x10E9/L 09/12/2018 7:22 PM CDT [facility] RBC 4.71 3.80 - 5.20 x10E12/L 09/12/2018 7:22 PM CDT [facility] Hemoglobin 13.4 12.0 - 15.6 gm/dL 09/12/2018 7:22 PM CDT [facility] Hematocrit 40.8 35.9 - 45.5 % 09/12/2018 7:22 PM CDT [facility] MCV 86.6 80.7 - 98.3 fl 09/12/2018 7:22 PM CDT [facility] MCH 28.5 26.7 - 34.0 pg 09/12/2018 7:22 PM CDT [facility] MCHC 32.8 30.8 - 35.9 gm/dL 09/12/2018 7:22 PM CDT [facility] Platelet Count 459(H) 153 - 416 x10E9/L 09/12/2018 7:22 PM CDT [facility] RDW-CV 13.5 12.1 - 14.9 % 09/12/2018 7:22 PM CDT [facility] MPV 10.6 9.4 - 12.9 fl 09/12/2018 7:22 PM CDT [facility] Neutrophils % 63.2 44.0 - 73.0 % 09/12/2018 7:22 PM CDT [facility] Lymphocytes % 20.5 20.0 - 43.0 % 09/12/2018 7:22 PM CDT [facility] Monocytes % 12.2 5.0 - 13.0 % 09/12/2018 7:22 PM CDT [facility] Eosinophils % 3.2 0.0 - 6.0 % 09/12/2018 7:22 PM CDT [facility] Basophils % 0.8 0.0 - 2.0 % 09/12/2018 7:22 PM CDT [facility] Immature Granulocytes 0.1 0 - 1 % 09/12/2018 7:22 PM CDT [facility] Neutrophil Absolute 4.67 2.01 - 7.14 x10E9/L 09/12/2018 7:22 PM CDT [facility] Lymphocytes Absolute 1.52 1.07 - 3.94 x10E9/L 09/12/2018 7:22 PM CDT [facility] Monocytes Absolute 0.90 0.26 - 1.07 x10E9/L 09/12/2018 7:22 PM CDT [facility] Eosinophils Absolute 0.24 0 - 0.47 x10E9/L 09/12/2018 7:22 PM CDT [facility] Basophils Absolute 0.06 0 - 0.08 x10E9/L 09/12/2018 7:22 PM CDT [facility] Immature Granulocytes Absolute 0.01 0.00 - 0.06 x10E9/L 09/12/2018 7:22 PM CDT [facility] nRBC Auto 0 /100 WBC 09/12/2018 7:22 PM CDT [facility] Blood BLOOD SPECIMEN / Unknown Venipuncture / Unknown 09/12/2018 6:57 PM CDT 09/12/2018 7:17 PM CDT Donnie Singh PSYCH COORDINATOR-MEDICAL ASST LAB - HEMATOLOGY ORDERABLES [facility] [address] [place] [address] * (ABNORMAL) COMPREHENSIVE METABOLIC PANEL (09/12/2018 6:57 PM CDT) Only the most recent of3 resultswithin the time period is included. [facility] Glucose 127(H) 74 - 106 mg/dL 09/12/2018 7:36 PM CDT [facility] Sodium 136 136 - 145 mmol/L 09/12/2018 7:36 PM CDT [facility] Potassium 4.6 3.5 - 5.1 mmol/L 09/12/2018 7:36 PM CDT [facility] Chloride 97(L) 98 - 107 mmol/L 09/12/2018 7:36 PM CDT [facility] CO2 26 23 - 31 mmol/L 09/12/2018 7:36 PM CDT [facility] Calcium 10.8(H) 8.4 - 10.2 mg/dL 09/12/2018 7:36 PM CDT [facility] Anion Gap 13 8 - 16 mmol/L 09/12/2018 7:36 PM CDT [facility] BUN 26(H) 9.8 - 20.1 mg/dL 09/12/2018 7:36 PM CDT [facility] Creatinine 0.70 0.55 - 1.02 mg/dL 09/12/2018 7:36 PM CDT [facility] Alkaline Phosphatase 124 40 - 150 U/L 09/12/2018 7:36 PM CDT [facility] ALT 17 13 - 61 U/L 09/12/2018 7:36 PM CDT [facility] AST 20 5 - 34 U/L 09/12/2018 7:36 PM CDT [facility] Protein Total 7.4 6.4 - 8.3 gm/dL 09/12/2018 7:36 PM CDT [facility] Albumin 4.0 3.2 - 4.6 gm/dL 09/12/2018 7:36 PM CDT [facility] Bilirubin Total 0.4 0.2 - 1.0 mg/dL 09/12/2018 7:36 PM CDT [facility] eGFR by MDRD >60 mL/min/1.7 3m2 09/12/2018 7:36 PM CDT [facility] eGFR by MDRD >60 mL/min/1.7 3m2 09/12/2018 7:36 PM CDT [facility] Blood BLOOD SPECIMEN / Unknown Venipuncture / Unknown 09/12/2018 6:57 PM CDT 09/12/2018 7:17 PM CDT Donnie Singh PSYCH COORDINATOR-MEDICAL [facility] LAB - CHEMISTRY ORDERABLES [facility] [address] [place] [id number] * (ABNORMAL) GLUCOSE - POINT OF CARE (08/30/2018 11:26 AM CDT) Only the most recent of75 resultswithin the time period is included. Glucose WB/POC 247(H) 70 - 106 mg/dL 08/30/2018 11:38 AM CDT [facility] Specimen Type Arterial/C apillary 08/30/2018 11:38 AM CDT [facility] Blood BLOOD SPECIMEN / Unknown 08/30/2018 11:26 AM CDT 08/30/2018 11:38 AM CDT Fide Brink MD LAB - POINT OF CARE ORDERABLES Performing Organization Address [facility] Co de Phone Number [facility] [address] [place] [phone] * PT-INR (08/30/2018 4:08 AM CDT) Only the most recent of12 resultswithin the time period is included. PT 10.8 9.5 - 11.6 sec 08/30/2018 4:51 AM CDT [facility] INR 1.0 0.9 - 1.1 08/30/2018 4:51 AM CDT [facility] Blood BLOOD SPECIMEN / Unknown Venipuncture / Unknown 08/30/2018 4:08 AM CDT 08/30/2018 4:38 AM CDT Narrative [facility] - 08/30/2018 4:51 AM CDT Conventional Warfarin Anticoagulant Therapy: INR Reference Range: ??2.0-3.0 Intensive Warfarin Anticoagulant Therapy: INR Reference Range: ? 2.5-3.5 Andre Mckeon MD LAB - COAGULATION OR DERABLES Performing Organization Address [facility] Co de Phone Number [facility] [address] [place] [phone] * (ABNORMAL) HGB HCT PANEL (08/30/2018 4:08 AM CDT) Only the most recent of7 resultswithin the time period is included. Hemoglobin 11.5(L) 12.0 - 15.6 gm/dL 08/30/2018 4:48 AM CDT [facility] Hematocrit 36.4 35.9 - 45.5 % 08/30/2018 4:48 AM CDT [facility] Blood BLOOD SPECIMEN / Unknown Venipuncture / Unknown 08/30/2018 4:08 AM CDT 08/30/2018 4:38 AM CDT Fide Brink MD LAB - HEMATOLOGY ORD ERABLES Performing Organization Address [facility] de Phone Number [facility] [address] [place] [address] * (ABNORMAL) HEMOGLOBIN A1C (08/29/2018 4:14 AM CDT) Only the most recent of2 resultswithin the time period is included. Hemoglobin A1c 6.3(H) 4.0 - 6.1 % 08/29/2018 5:03 AM CDT [facility] Estimated Average Glucose 134 mg/dL 08/29/2018 5:03 AM CDT [facility] Blood BLOOD SPECIMEN / Unknown Venipuncture / Unknown 08/29/2018 4:14 AM CDT 08/29/2018 4:48 AM CDT Narrative [facility] - 08/29/2018 5:03 AM CDT Attention clinician: ??Reference Range has changed. Andre Mckeon MD LAB - CHEMISTRY JULES MESSINA Performing Organization Address [facility] Co de Phone Number [facility] [address] [place] [address] * (ABNORMAL) CULTURE MSSA/MRSA (08/13/2018 1:15 PM CDT) Only the most recent of2 resultswithin the time period is included. Culture Negative for methicillin-resist ant Staphylococcus aureus (MRSA) IMANI 08/15/2018 3:12 PM CDT [facility] Culture Growth of Staphylococcus aureus methicillin-suscep tible (MSSA)(A) IMANI 08/15/2018 3:12 PM CDT [facility] Microbiology SPECIMEN FROM [facility] / Unknown Collection / Unknown 08/13/2018 1:15 PM CDT 08/13/2018 1:24 PM CDT Miladis Dillard PSYCH COORDINATOR-[facility]ICAL [facility] - MICR OBIOLOGY ORDERABLES [facility] [address] [place] [id number] [phone] * ECHOCARDIOGRAM 2D WITH DOPPLER (11/11/2014 2:41 PM CDT) Only the most recent of2 resultswithin the time period is included. 11/11/2014 2:41 PM CDT Narrative [facility] - 11/11/2014 4:54 PM CDT [address] [id number] Transthoracic Echocardiogram 2D, M-mode, Doppler, and Color Doppler Patient: JANE WALKER MR number: [id number] Height: 65 in Weight: 204 lb BSA: 2 m?? Study date: 11-Nov-2014 : 1945 Age: 69 years Gender: Female Race: Allergies: TRAMADOL, ADALIMUMAB, SULFA DRUGS, TRIMETHOPRIM, OTHER, HYDROCODONE-ACETAMINOPHEN Diagnoses: 782.3 - EDEMA Reading Physician: ??Joey Ash MD Referring Physician: ??Etelvina Ford MD SELF PROPELLED DREDGE OPERATOR: ??Jourdan Edwards,[facility] Cardiology Group: ??[facility] Summary: - ??History: - ??DVT; Pulmonary Embolism - ??Procedure information: - ??Room 541 at 14:41. - ??Left ventricle: - ??Systolic function was normal. Ejection fraction was estimated in the range of 55 % to 65 %. - ??There were no regional wall motion abnormalities. - ??Wall thickness was normal. Indications: Assess edema. History: Prior history: DVT; Pulmonary Embolism Risk factors: hypertension, medication-treated hypercholesterolemia, and morbid obesity. Procedure: The study was performed in the [facility] [place] This was a routine study. Room 541 at 14:41. The transthoracic approach was used. The study included complete 2D imaging, M-mode, complete spectral Doppler, and color Doppler. Systolic blood pressure was 103 mmHg. Diastolic blood pressure was 46 mmHg. Left ventricle: Size was normal. Systolic function was normal. Ejection fraction was estimated in the range of 55 % to 65 %. There were no regional wall motion abnormalities. Wall thickness was normal. Aortic valve: The valve was trileaflet. Leaflets exhibited normal thickness and normal cuspal separation. Doppler: Transaortic velocity was within the normal range. There was no stenosis. There was no regurgitation. Aorta: The root exhibited normal size. Mitral valve: Valve structure was normal. There was normal leaflet separation. Doppler: The transmitral velocity was within the normal range. There was no evidence for stenosis. There was no regurgitation. Left atrium: Size was normal. Right ventricle: The size was normal. Systolic function was normal. Wall thickness was normal. Tricuspid valve: Doppler: There was no significant regurgitation. Right atrium: Size was normal. Pericardium: There was no pericardial effusion. The pericardium was normal in appearance. System measurement tables 2D IVSd: 1 cm LVEDV MOD A4C: 44.7 ml LVESV MOD A4C: 15.3 ml LVIDd: 3.9 cm LVIDs: 2.5 cm LVPWd: 1 cm CW PV Vmax: 1.1 m/s AV Vmax: 1.4 m/s AV maxP.9 mmHg PV maxP.7 mmHg MM LA Diam: 3.5 cm AV Cusp: 1.9 cm Ao Diam: 3.2 cm PW LVOT Vmax: 1.1 m/s Lateral E/E: 7.7 Lateral e': 0.1 m/s MV A Ilia: 1.1 m/s MV [place]: 4.3 m/s2 MV E Ilia: 0.9 m/s MV E/A Ratio: 0.8 Septal e': 0.1 m/s Prepared and signed by Joey Ash MD Signed 11-Nov-2014 16:54:32 Procedure Note Joey Ash MD - 11/11/[address] [address] Transthoracic Echocardiogram 2D, M-mode, Doppler, and Color Doppler Patient: JANE WALKER MR number: [id number] Height: 65 in Weight: 204 lb BSA: 2 m?? Study date: 11-Nov-2014 : 1945 Age: 69 years Gender: Female Race: Allergies: TRAMADOL, ADALIMUMAB, SULFA DRUGS, TRIMETHOPRIM, OTHER, HYDROCODONE-ACETAMINOPHEN Diagnoses: 782.3 - EDEMA Reading Physician: Joey Ash MD Referring Physician: Etelvina Ford MD SELF PROPELLED DREDGE OPERATOR: Jourdan EdwardsSUMI Cardiology Group: [facility] Summary: - History: - DVT; Pulmonary Embolism - Procedure information: - Room 541 at 14:41. - Left ventricle: - Systolic function was normal. Ejection fraction was estimated in the range of 55 % to 65 %. - There were no regional wall motion abnormalities. - Wall thickness was normal. Indications: Assess edema. History: Prior history: DVT; Pulmonary Embolism Risk factors: hypertension, medication-treated hypercholesterolemia, and morbid obesity. Procedure: The study was performed in the [facility] [place]. This was a routine study. Room 541 at 14:41. The transthoracic approach was used. The study included complete 2D imaging, M-mode, complete spectral Doppler, and color Doppler. Systolic blood pressure was 103 mmHg. Diastolic blood pressure was 46 mmHg. Left ventricle: Size was normal. Systolic function was normal. Ejection fraction was estimated in the range of 55 % to 65 %. There were no regional wall motion abnormalities. Wall thickness was normal. Aortic valve: The valve was trileaflet. Leaflets exhibited normal thickness and normal cuspal separation. Doppler: Transaortic velocity was within the normal range. There was no stenosis. There was no regurgitation. Aorta: The root exhibited normal size. Mitral valve: Valve structure was normal. There was normal leaflet separation. Doppler: The transmitral velocity was within the normal range. There was no evidence for stenosis. There was no regurgitation. Left atrium: Size was normal. Right ventricle: The size was normal. Systolic function was normal. Wall thickness was normal. Tricuspid valve: Doppler: There was no significant regurgitation. Right atrium: Size was normal. Pericardium: There was no pericardial effusion. The pericardium was normal in appearance. System measurement tables 2D IVSd: 1 cm LVEDV MOD A4C: 44.7 ml LVESV MOD A4C: 15.3 ml LVIDd: 3.9 cm LVIDs: 2.5 cm LVPWd: 1 cm CW PV Vmax: 1.1 m/s AV Vmax: 1.4 m/s AV maxP.9 mmHg PV maxP.7 mmHg MM LA Diam: 3.5 cm AV Cusp: 1.9 cm Ao Diam: 3.2 cm PW LVOT Vmax: 1.1 m/s Lateral E/E: 7.7 Lateral e': 0.1 m/s MV A Ilia: 1.1 m/s MV [place]: 4.3 m/s2 MV E Ilia: 0.9 m/s MV E/A Ratio: 0.8 Septal e': 0.1 m/s Prepared and signed by Joey Ash MD Signed 11-Nov-2014 16:54:32 Etelvina Ford MD ECHO ORDERABLES [facility] * (ABNORMAL) C-REACTIVE PROTEIN SENSITIVE (11/11/2014 6:22 AM CDT) Pathologist [facility] C-Reactive Protein High Sensitivity 4.66(H) <0.30 mg/dL 11/11/2014 10:56 AM CDT [facility] Blood BLOOD SPECIMEN / Unknown 11/11/2014 6:22 AM CDT 11/11/2014 6:39 AM CDT [facility] - 11/11/2014 10:56 AM CDT C-REACTIVE PROTEIN SENSITIVE INTERPRETATION Patients with higher hs-CRP concentrations are more likely to develop stroke, myocardial infarction, and severe peripheral vascular disease. CRP is a nonspecific marker of inflammation and a variety of conditions other than atherosclerosis may cause elevated concentrations. If the first result is greater than 0.30 mg/dL, recommend repeating test at least 2 weeks later in a metabolically stable state, free of infection or acute illness. The lower of the two results should be used to determine the patient's risk. C-REACTIVE PROTEIN SENSITIVE results are used to assign risk as follows: ? Less than 0.10 ??mg/dL ?Low risk ? 0.10-0.30 mg/dL ?Average risk ? 0.31-0.99 mg/dL ?High risk ? Greater than 0.99 mg/dL ?Very high risk ? (Clin Chem 2009; 55:378-84) Lala Narayanan MD LAB - CHEMISTRY JULES MESSINA [facility] [address], [place] [id number] * (ABNORMAL) BASIC METABOLIC PANEL (CALCIUM TOTAL) (11/11/2014 6:21 AM CDT) Only the most recent of5 resultswithin the time period is included. [facility] Glucose 121(H) 74 - 106 mg/dL 11/11/2014 6:57 AM CDT [facility] Sodium 139 136 - 145 mmol/L 11/11/2014 6:57 AM CDT [facility] Potassium 3.6 3.5 - 5.1 mmol/L 11/11/2014 6:57 AM CDT [facility] Chloride 104 98 - 107 mmol/L 11/11/2014 6:57 AM CDT [facility] CO2 30 22 - 31 mmol/L 11/11/2014 6:57 AM CDT [facility] Calcium 8.7 8.5 - 10.1 mg/dL 11/11/2014 6:57 AM CDT [facility] Anion Gap 5 5 - 20 mmol/L 11/11/2014 6:57 AM CDT [facility] BUN 12 7 - 21 mg/dL 11/11/2014 6:57 AM CDT [facility] Creatinine 0.53 0.50 - 1.30 mg/dL 11/11/2014 6:57 AM CDT [facility] eGFR by MDRD >60 >60 mL/min/1.7 3m2 11/11/2014 6:57 AM CDT [facility] eGFR by MDRD >60 >60 mL/min/1.7 3m2 11/11/2014 6:57 AM CDT [facility] Blood BLOOD SPECIMEN / Unknown 11/11/2014 6:21 AM CDT 11/11/2014 6:39 AM CDT Grover Sauer PA-C LAB - CHEMISTRY JULES MESSINA [facility] [address] [place] [address] * (ABNORMAL) URINALYSIS ROUTINE AUTO (11/10/2014 2:48 PM CDT) Color UA Yellow Straw, Yellow, Dark Yellow 11/10/2014 3:16 PM CDT [facility] Clarity UA Clear 11/10/2014 3:16 PM CDT [facility] Specific [place] UA 1.015 1.005 - 1.030 11/10/2014 3:16 PM CDT [facility] pH UA 6.0 5.0 - 8.0 pH 11/10/2014 3:16 PM CDT [facility] Protein UA Negative Negative 11/10/2014 3:16 PM CDT [facility] Blood UA Negative Negative 11/10/2014 3:16 PM CDT [facility] Leukocyte UA Trace(A) Negative 11/10/2014 3:16 PM CDT [facility] Nitrite UA Negative Negative 11/10/2014 3:16 PM CDT [facility] Glucose UA Negative Negative 11/10/2014 3:16 PM CDT [facility] Ketone UA Negative Negative 11/10/2014 3:16 PM CDT [facility] Bilirubin UA Negative Negative 11/10/2014 3:16 PM CDT [facility] Urobilinogen UA 0.2 0.1 - 1.0 EU/dL 11/10/2014 3:16 PM CDT [facility] WBC UA Auto 0-2 0-2, 2-5 # /hpf 11/10/2014 3:16 PM CDT [facility] RBC UA Auto 0-2 0-2, 2-5 # /hpf 11/10/2014 3:16 PM CDT [facility] Epithelial Cell UA Auto 0-2 0-2, 2-5 # /hpf 11/10/2014 3:16 PM CDT [facility] Bacteria UA Auto None seen None seen 11/10/2014 3:16 PM CDT [facility] Hyaline Casts UA Auto 0-2 0 - 2 #/lpf 11/10/2014 3:16 PM CDT [facility] Urine URINE SPECIMEN OBTAINED BY CLEAN CATCH PROCEDURE / Unknown 11/10/2014 2:48 PM CDT 11/10/2014 3:05 PM CDT Lala Narayanan MD LAB - URINALYSIS ORD ERABLES [facility] [address] [place] [id number] * VAS RIGHT VENOUS DUPLEX LE (11/10/2014 10:19 AM CDT) Anatomical Region Laterality Modality Ultrasound 11/10/2014 10:0 9 AM CDT Narrative Procedure Note Arash Garvin MD - 11/10/[address] [address] Lower Extremity Venous Ultrasound Report Pat.Name: JANE WALKER Pat.ID: [id number] .Date: 11/10/2014 Exam Time: 10:09:00 AM Study Type:LE Venous Age: 3 1945,69Y Sex: FEMALE Sonogrphr: Marisela Diallo RVT Pat. Stat.:Outpatient Reason for Study:Swelling -Leg, right, Post-op evaluation Procedures:Lower Extremity Venous - Right Visit ID: [id number] SUMMARY: No evidence of DVT right leg. FINDINGS: Procedure: Venous duplex imaging of the right lower extremity was performed using color flow and spectral Doppler analysis. The contralateral common femoral vein was also examined. Study Quality: Technically difficult exam due to body habitus. Rt Leg: All vessels seen appear patent and compressible. There was spontaneous and phasic flow seen in all the major veins of the right lower extremity. Appropriate augmentation with distal compression. The left common femoral vein demonstrated phasic and spontaneous flow. Suboptimal visualization of calf veins. Comments: Incidental finding of a non vascular soft tissue mass that is mixed with echoes in the right popliteal fossa measuring 3.90 by 2.56cm . Signed 11/10/2014 01:30 PM Arash Garvin MD Lala Narayanan MD VASCULAR LAB ORDERAB LES * (ABNORMAL) PT PTT PANEL (11/10/2014 10:02 AM CDT) Only the most recent of16 resultswithin the time period is included. PT 32.4(H) 9.5 - 11.6 sec 11/10/2014 10:21 AM CDT [facility] INR 3.3(H) 0.9 - 1.1 11/10/2014 10:21 AM CDT [facility] PTT 29.7 21.0 - 32.0 sec 11/10/2014 10:21 AM CDT [facility] Blood BLOOD SPECIMEN / Unknown 11/10/2014 10:02 AM CDT 11/10/2014 10:06 AM CDT Narrative [facility] - 11/10/2014 10:21 AM CDT Conventional Warfarin Anticoagulant Therapy: INR Reference Range: ??2.0-3.0 Intensive Warfarin Anticoagulant Therapy: INR Reference Range: ? 2.5-3.5 Heparin Therapeutic Range for PTT: 44.4 - 78.3 seconds. Lala Narayanan MD LAB - COAGULATION OR DERABLES [facility] [address] [place] [address] * (ABNORMAL) CULTURE BLOOD (11/10/2014 8:49 AM CDT) Only the most recent of2 resultswithin the time period is included. Culture Staphylococcus species (Coagulase Negative)(AA) IMANI 11/16/2014 1:22 PM CDT [facility] Comment:possible contaminant Blood PERIPHERAL BLOOD / Unknown 11/10/2014 8:49 AM CDT 11/10/2014 8:52 AM CDT Narrative [facility] - 11/16/2014 1:22 PM CDT Positive at 2 day 1 hour 5 min. 11/12/2014 2:55 PM ?? Sondra Proctor RN notified. ??Read back and acknowledged results. Lala Narayanan MD LAB - MICROBIOLOGY O RDERABLES [facility] [address] [place] [address], [facility] [phone] * XR KNEE 1 OR 2 VW RIGHT (11/10/2014 8:27 AM CDT) Only the most recent of2 resultswithin the time period is included. Anatomical Region Laterality Modality Lower Extremity Radiographic Milagros ging 11/10/2014 8:32 AM CDT Narrative 11/10/2014 8:32 AM CDT 2 views right knee Indication: Right knee pain. History of right knee were placed in 7 weeks ago. Recent twisting injury of right knee. Comparison: Right knee x-ray 10/15/2014 Findings: There is redemonstration of a cemented non-constrained total knee arthroplasty. There is a new moderate size joint effusion. There are no acute appearing postsurgical complications. There is no acute fracture. Procedure Note Jennifer Phelps MD - 11/10/2014 2 views right knee Indication: Right knee pain. History of right knee were placed in 7 weeks ago. Recent twisting injury of right knee. Comparison: Right knee x-ray 10/15/2014 Findings: There is redemonstration of a cemented non-constrained total knee arthroplasty. There is a new moderate size joint effusion. There are no acute appearing postsurgical complications. There is no acute fracture. Lala Narayanan MD DIAGNOSTIC IMAGING O RDERABLES * LACTIC ACID BLOOD (11/10/2014 8:22 AM CDT) Lactic Acid 0.7 0.7 - 2.1 mmol/L 11/10/2014 8:41 AM CDT [facility] Blood BLOOD SPECIMEN / Unknown 11/10/2014 8:22 AM CDT 11/10/2014 8:22 AM CDT Lala Narayanan MD LAB - CHEMISTRY ORDE RABLES Performing Organization Address [facility] Co de Phone Number [facility] [address] [place] [address] * SED RATE WESTERGREN (11/10/2014 8:21 AM CDT) Erythrocyte Sedimentation Rate Westergren 9 0 - 30 mm/hr 11/10/2014 9:15 AM CDT [facility] Blood BLOOD SPECIMEN / Unknown 11/10/2014 8:21 AM CDT 11/10/2014 8:21 AM CDT Lala Narayanan MD LAB - HEMATOLOGY ORD ERABLES Performing Organization Address [facility] de Phone Number [facility] [id number] [place] [id number] * XR KNEE BILAT ONE OR TWO VIEWS (04/09/2014 2:30 PM CIVIL PROJECT ENGINEER) Anatomical Region Laterality Modality Lower Extremity Radiographic Milagros ging Narrative 04/09/2014 4:37 PM CIVIL PROJECT ENGINEER Yusra Hill ? 04/09/2014 ??4:37 PM Please see progress notes for result. Fide Brink MD DIAGNOSTIC IMAGING O RDERABLES * CARDIAC RHYTHM STRIP ORDER (04/01/2014 6:39 PM CIVIL PROJECT ENGINEER) Narrative 04/01/2014 6:39 PM CIVIL PROJECT ENGINEER Ordered by an unspecified provider. Scanned Document CARDIAC SERVICES ORD ERABLES * (ABNORMAL) PTT (03/28/2014 7:13 PM CIVIL PROJECT ENGINEER) Only the most recent of8 resultswithin the time period is included. PTT 54.4(H) 21.0 - 32.0 sec 03/28/2014 7:49 PM CIVIL PROJECT ENGINEER [facility] Blood BLOOD SPECIMEN / Unknown 03/28/2014 7:13 PM CIVIL PROJECT ENGINEER 03/28/2014 7:22 PM CIVIL PROJECT ENGINEER Narrative [facility] - 03/28/2014 7:49 PM CIVIL PROJECT ENGINEER Heparin Therapeutic Range for PTT: 44.4 - 78.3 seconds. Khushi Singh MD LAB - COAGULATION O RDERABLES [facility] [address] [place] [address] * VAS VENOUS DUPLEX LE BILATERAL (03/24/2014 7:52 AM CIVIL PROJECT ENGINEER) Anatomical Region Laterality Modality Ultrasound 03/24/2014 7:10 AM CIVIL PROJECT ENGINEER Narrative Procedure Note Arash Garvin MD - 03/24/[address] [address] Lower Extremity Venous Ultrasound Report Pat.Name: JANE WALKER Pat.ID: [id number] .Date: 03/24/2014 Exam Time: 7:10:00 AM Study Type:LE Venous Age: 3 1945,68Y Sex: FEMALE Sonogrphr: Raji Breen RVT Pat. Stat.:Inpatient Room: [facility] Reason for Study:Pulmonary Embolism, Post-op evaluation Procedures:Lower Extremity Venous - Bilateral Visit ID: [id number] SUMMARY: 1. Acute DVT of the left leg involving the posterior tibial vein. 2. No evidence of DVT in the right leg. FINDINGS: Procedure: Venous duplex imaging of both lower extremities was performed using color flow and spectral Doppler analysis. Study Quality: Technically difficult exam due to patient pain tolerance. Rt Leg: All vessels seen appear patent and compressible. There was spontaneous and phasic flow seen in all the major veins of the right lower extremity. Appropriate augmentation with distal compression. No evidence of reflux with proximal compression. Lt Leg: There is acute, occlusive thrombus in the one of two posterior tibial veins. All other vessels seen appear patent and compressible. There was spontaneous and phasic flow seen in all other major veins of the left lower extremity. Appropriate augmentation with distal compression. No evidence of reflux with proximal compression. Comments: Technologist findings were called to CL Hoover. Signed 03/24/2014 01:24 PM Arash Garvin MD Andrew Ryan MD VASCULAR LAB JULES MESSINA * (ABNORMAL) DIFFERENTIAL MANUAL (03/24/2014 3:43 AM CIVIL PROJECT ENGINEER) WBC Auto 4.4 x10^9/L 03/24/2014 5:58 AM CIVIL PROJECT ENGINEER [facility] Neutrophil % Manual 32(L) 44 - 73 % 03/24/2014 5:58 AM CIVIL PROJECT ENGINEER [facility] Lymphocytes % Manual 40 20 - 43 % 03/24/2014 5:58 AM CIVIL PROJECT ENGINEER [facility] Monocytes % Manual 13 5 - 13 % 03/24/2014 5:58 AM CIVIL PROJECT ENGINEER [facility] Eosinophils % Manual 7(H) 0 - 6 % 03/24/2014 5:58 AM CIVIL PROJECT ENGINEER [facility] Basophils % Manual 1 0 - 2 % 03/24/2014 5:58 AM CIVIL PROJECT ENGINEER [facility] Atypical Lymphocyte % Manual 0 <=0 % 03/24/2014 5:58 AM CIVIL PROJECT ENGINEER [facility] Band % Manual 7 0 - 11 % 03/24/2014 5:58 AM CIVIL PROJECT ENGINEER [facility] Cells Counted 100 # cells 03/24/2014 5:58 AM CIVIL PROJECT ENGINEER [facility] RBC Morphology Normal 03/24/2014 5:58 AM CIVIL PROJECT ENGINEER [facility] WBC Morph Normal 03/24/2014 5:58 AM CIVIL PROJECT ENGINEER [facility] Blood BLOOD SPECIMEN / Unknown 03/24/2014 3:43 AM CIVIL PROJECT ENGINEER 03/24/2014 4:28 AM CIVIL PROJECT ENGINEER Khushi Singh MD LAB - HEMATOLOGY OR DERABLES Performing Organization Address City/State/[facility] Co de Phone Number [facility] [address] [place] [address] * CULTURE VRE (03/21/2014 6:34 PM CIVIL PROJECT ENGINEER) Culture Negative for VRE IMANI 03/23/2014 5:49 AM CIVIL PROJECT ENGINEER [facility] Stool RECTAL SWAB / Unknown 03/21/2014 6:34 PM CIVIL PROJECT ENGINEER 03/21/2014 6:46 PM CIVIL PROJECT ENGINEER Khushi Singh MD LAB - MICROBIOLOGY ORDERABLES Performing Organization Address [facility] de Phone Number [facility] [address] [place] [address], [facility] * CULTURE MRSA (03/21/2014 6:34 PM CIVIL PROJECT ENGINEER) Culture Negative for MRSA IMANI 03/23/2014 5:47 AM CIVIL PROJECT ENGINEER [facility] Microbiology SPECIMEN FROM NASAL FOSSAE / Unknown 03/21/2014 6:34 PM CIVIL PROJECT ENGINEER 03/21/2014 6:46 PM CIVIL PROJECT ENGINEER Khushi Singh MD LAB - MICROBIOLOGY ORDERABLES Performing Organization Address [facility] de Phone Number [facility] [address] [place] [address], [facility] * CT CHEST PE (03/21/2014 2:31 PM CIVIL PROJECT ENGINEER) Anatomical Region Laterality Modality Chest Computed Tomogra phy 03/21/2014 2:47 PM CIVIL PROJECT ENGINEER Impressions 03/21/2014 2:53 PM CIVIL PROJECT ENGINEER Positive exam for pulmonary emboli with thrombus in the lobar branches to both lungs. Findings discussed with Dr. Singh by Dr. Clark at 2:50 PM on March 21, 2014. Narrative 03/21/2014 2:[address] PE Protocol Clinical Indication: Shortness of breath Technique: The pulmonary embolus protocol was utilized. Axial CT images from the lung apices to the lung bases were obtained following Omnipaque 350 80cc intravenous contrast administration. Multiplanar maximum intensity projection reconstructions were created on an independent workstation. Findings: Lung windows show no acute infiltrate or edema or pleural effusion or pneumothorax. The central airways are clear. There is no bronchial wall thickening or central airway lesion evident. Lung windows show scattered degenerative change without acute osseous abnormality or destructive lesion. Soft tissue windows demonstrates thrombus in the lobar pulmonary artery left lower lobe extending into segmental and subsegmental branches. There is also subsegmental PE in the right lower lobe with additional proximal clot in the right lower lobar branch and also clot seen in the right middle lobar branch. Subsegmental clot also identified in the right upper lobe branches extending out to subsegmental branches. There is straightening of the intraventricular septum suggesting right heart strain. There is no adenopathy evident in the chest. No pleural effusion or pneumothorax seen. Procedure Note Nelson Clark MD - 03/21/2014 CT PE Protocol Clinical Indication: Shortness of breath Technique: The pulmonary embolus protocol was utilized. Axial CT images from the lung apices to the lung bases were obtained following Omnipaque 350 80cc intravenous contrast administration. Multiplanar maximum intensity projection reconstructions were created on an independent workstation. Findings: Lung windows show no acute infiltrate or edema or pleural effusion or pneumothorax. The central airways are clear. There is no bronchial wall thickening or central airway lesion evident. Lung windows show scattered degenerative change without acute osseous abnormality or destructive lesion. Soft tissue windows demonstrates thrombus in the lobar pulmonary artery left lower lobe extending into segmental and subsegmental branches. There is also subsegmental PE in the right lower lobe with additional proximal clot in the right lower lobar branch and also clot seen in the right middle lobar branch. Subsegmental clot also identified in the right upper lobe branches extending out to subsegmental branches. There is straightening of the intraventricular septum suggesting right heart strain. There is no adenopathy evident in the chest. No pleural effusion or pneumothorax seen. IMPRESSION Positive exam for pulmonary emboli with thrombus in the lobar branches to both lungs. Findings discussed with Dr. Singh by Dr. Clark at 2:50 PM on March 21, 2014. Khushi Singh MD CT ORDERABLES * MAGNESIUM BLOOD (03/21/2014 12:30 PM CIVIL PROJECT ENGINEER) Magnesium 2.0 1.6 - 2.6 mg/dL 03/21/2014 1:05 PM CIVIL PROJECT ENGINEER [facility] Blood BLOOD SPECIMEN / Unknown 03/21/2014 12:30 PM CIVIL PROJECT ENGINEER 03/21/2014 12:35 PM CIVIL PROJECT ENGINEER Khushi Singh MD LAB - CHEMISTRY ORD ERABLES Performing Organization Address City/[facility] Co de Phone Number [facility] [address] [place] [address] * EKG 12-LEAD (03/18/2014 1:17 PM CIVIL PROJECT ENGINEER) Only the most recent of2 resultswithin the time period is included. Ventricular Rate 77 BPM [facility] Atrial Rate 77 BPM [facility] P-R Interval 148 ms [facility] QRS Duration ms 74 ms [facility] Q-T Interval ms 390 ms [facility] QTC Calculation (Bezet) 441 ms [facility] Calculated P Desdemona 57 degrees [facility] Calculated R Desdemona 5 degrees [facility] Calculated T Desdemona 1 degrees [facility] Interpretation EKG Normal sinus rhythm Low voltage QRS Borderline ECG When compared with ECG of 03-SEP-2013 10:32, No significant change was found Confirmed by JOSE AARON, [facility] ([id number]) on 03/19/2014 12:04:34 PM [facility] 03/18/2014 1:17 PM CIVIL PROJECT ENGINEER 03/19/2014 12:04 PM CIVIL PROJECT ENGINEER Derek Ayala MD ECG ORDERABLES Performing Organization Address [facility] Co de Phone Number [facility] * XR KNEE 1 OR 2 VW LEFT (03/12/2014 1:43 PM CIVIL PROJECT ENGINEER) Anatomical Region Laterality Modality Lower Extremity Radiographic Milagros ging Narrative 03/12/2014 5:32 PM CIVIL PROJECT ENGINEER Hermila Rea, RT(R) ? 03/12/2014 ??5:32 PM See Chart For Xray Report Fide Brink MD DIAGNOSTIC IMAGING O RDERABLES * XR FOOT 3+ VW LEFT (06/12/2013 11:32 AM CDT) Anatomical Region Laterality Modality Ankle / Foot Radiographic Milagros ging Narrative 06/12/2013 11:33 AM CDT Yusra Hill ? 06/12/2013 11:33 AM Please see progress notes for result. Procedure Note SergioHarpreetYusra - 06/12/2013 11:32 AM CDT Please see progress notes for result. Lynn Lubin MD DIAGNOSTIC IMAGING ORDERABLES * EMG WITH NERVE CONDUCTION STUDY (03/21/2013) Efra Armas MD NEUROLOGY ORDERABLES * IMAGING/RADIOLOGY/XRAY RESULTS ORDER (03/06/2012) Anatomical Region Laterality Modality Other Fide Brink MD IMAGING * US DOPPLER VENOUS LEG RIGHT (03/06/2012) Anatomical Region Laterality Modality Other Fide Brink MD VASCULAR LAB ORDERAB LES * XR FOOT WEIGHT BEARING RIGHT (12/28/2011 12:26 PM CIVIL PROJECT ENGINEER) Anatomical Region Laterality Modality Ankle / Foot, Lower Extremity Ra diographic Imaging 12/28/2011 2:39 PM CIVIL PROJECT ENGINEER Impressions 12/28/2011 4:28 PM CIVIL PROJECT ENGINEER Negative for fracture at this time. ??Please see above. ?? Narrative 12/28/2011 4:28 PM CIVIL PROJECT ENGINEER RIGHT FOOT THREE VIEWS WITH WEIGHTBEARING INDICATION: ??Heel pain. Plantar fasciitis. Equinus deformity of the foot. FINDINGS: No fracture can be identified on the current plain films. The arch of the foot is flattened on the lateral view. A small rounded dystrophic appearing calcification is noted on the dorsal aspect of the navicular and the talonavicular joint. A small heel spur can be seen on the lateral view. ??If the patient's symptoms persist or worsen, consideration may be given to an alternative imaging modality such as an MRI or a bone scan to check for an occult process. Procedure Note Dioni Frederick MD - 12/28/2011 RIGHT FOOT THREE VIEWS WITH WEIGHTBEARING INDICATION: Heel pain. Plantar fasciitis. Equinus deformity of the foot. FINDINGS: No fracture can be identified on the current plain films. The arch of the foot is flattened on the lateral view. A small rounded dystrophic appearing calcification is noted on the dorsal aspect of the navicular and the talonavicular joint. A small heel spur can be seen on the lateral view. If the patient's symptoms persist or worsen, consideration may be given to an alternative imaging modality such as an MRI or a bone scan to check for an occult process. IMPRESSION Negative for fracture at this time. Please see above. Allyssa Morales DPM DIAGNOSTIC IMAGING O RDERABLES * XR FOOT WEIGHT BEARING LEFT (08/15/2011 2:29 PM CDT) Anatomical Region Laterality Modality Ankle / Foot, Lower Extremity Ra diographic Imaging 08/15/2011 3:53 PM CDT Impressions 08/15/2011 4:03 PM CDT Pes planus with talonavicular uncoverage. Narrative 08/15/2011 4:03 PM CDT LEFT FOOT, THREE VIEWS CLINICAL INDICATION: Left foot pain. COMPARISON: None. FINDINGS: There is a pes planus deformity of the foot. There is talonavicular uncoverage. Mild hallux valgus deformity is also present. There is a diversion of the fourth and fifth rays at the level of the MTP joints. No gross osseous erosions are noted. Mild diffuse soft tissue swelling is present. Procedure Note Robbie Oconnor MD - 08/15/2011 LEFT FOOT, THREE VIEWS CLINICAL INDICATION: Left foot pain. COMPARISON: None. FINDINGS: There is a pes planus deformity of the foot. There is talonavicular uncoverage. Mild hallux valgus deformity is also present. There is a diversion of the fourth and fifth rays at the level of the MTP joints. No gross osseous erosions are noted. Mild diffuse soft tissue swelling is present. IMPRESSION Pes planus with talonavicular uncoverage. Allyssa Morales DPM DIAGNOSTIC IMAGING O RDERABLES * EMG (08/15/2011) Allyssa Morales DPM NEUROLOGY ORDERABLES [facility] RESULT SCAN * URINALYSIS DIPSTICK AUTO (04/23/2008 7:28 AM CIVIL PROJECT ENGINEER) Color UA YELLOW [facility] Character UA CLEAR [facility] Specific [place] UA 1.020 1.005 - 1.0300 [facility] pH UA 5.0 4.6 - 8.0 pH Units [facility] Leukocyte UA neg Negative /ul [facility] Nitrite UA neg Negative [facility] Protein UA neg Negative mg/dl [facility] Glucose UA norm Normal mg/dl [facility] Ketone UA neg Negative mg/dl [facility] Urobilinogen UA norm Normal [place] Units [facility] Bilirubin UA neg Negative mg/dl [facility] Blood UA neg Negative /ul [facility] URINE / Unknown 04/23/2008 7 :28 AM CIVIL PROJECT ENGINEER Fide Brink MD LAB - URINALYSIS ORD ERABLES [facility] Care Teams Social Services Relationship Specialty Start Date End Date Dora Arnold MD [address] [place] [address] PCP - General Internal Medicine 03/06/14 Fide Brink MD Orthopedic Surgery 03/16/12 Lynn Lubin MD [address] [place] [address] Orthopedic Surgery 06/12/13
--- OUTSIDE RECORDS SUMMARY | 2024-03-22 09:21 | XMS_ITS | Referral Summary ---
Author Organization [facility] Address [facility] [place] [address] Care Team Providers Care Take Down Inspector Name Role Phone Fide Brink MD Unavailable [phone] Lynn Lubin MD Unavailable [phone] Dora Arnold MD Primary Care Provid er Source Comments [facility],non-owned Affiliates and Associated Physician Practices is amultiple site organization consisting of ambulatory clinics and hospital sitesin [place], [place], [place] and [place]. This disclosure is being madepursuant to the Care Everywhere program and may not contain all information available regarding this patient. Last updated 17.[facility] Allergies Active Allergy Reactions Criticality Noted Date [...] Mass Index 38.45 09/12/2018 6:20 PM CDT Functional Status Functional Status Response Date of Assess ment Is person deaf or have serious hearing difficult y? No 08/28/2018 Is person blind or have serious difficulty seein g? No 08/28/2018 Does person have serious dif ficulty walking/climbing stairs? No 08/28/2018 Does person have difficulty dressing/bathing? No 08/28/2018 Does person have difficulty doing errands alone? No 08/28/2018 Cognitive Status Response Date of Assessm ent Does person have difficulty concentrating/remembering/making decisions? No 08/28/2018 Plan of Treatment Not on file Medical Devices Implanted Type Area Juvenile Court Liaison Device Identifier Shelf Expiration Date Model / Serial / Lot Hawk Bone [place] Hv Implanted:Qty: 1 on 03/18/2014 by Fide Brink MD at [facility] Left: Knee [employer] 09/20/2015 [id number] / / [id number] Arcom Patella Single 1/4 Inch Peg 3mm X 9 Mm Implanted:Qty: 1 on 03/18/2014 by Fide Brink MD at [facility] Left: Knee [employer] 01/19/2019 [id number] / / [id number] Hawk Bone [place] Hv Implanted:Qty: 2 on 09/24/2014 by Fide Brink MD at [facility] Right: Knee [employer] 04/19/2016 [id number] / / [id number] Ins Kn Vangurd Fem Cocr R-Intlok 65.0mm Implanted:Qty: 1 on 09/24/2014 by Fide Brink MD at [facility] Right: Knee [employer] 08/19/2024 [id number] / / [id number] Butn Pat Arcom Wire Polyeth Med 34 X 9mm Implanted:Qty: 1 on 09/24/2014 by Fide Brink MD at [facility] Right: Knee [employer] 06/24/2019001025 / / [id number] Tibial I Beam Fix Bar 75mm Implanted:Qty: 1 on 09/24/2014 by Fide Brink MD at [facility] Right: Knee [employer] 03/22/2024 [id number] / / [id number] Implt Tib Bear Vangrd Implanted:Qty: 1 on 09/24/2014 by Fide Brink MD at [facility] Right: Knee [employer] 09/19/2018 [id number] / / [id number] Cmpnt Ptlr 34mm 1 Pg Wire Ascnt Arcm Kn Implanted:Qty: 1 on 08/28/2018 by Fide Brink MD at [facility] Left: Knee Juan [employer] 07/14/2023 [id number] / / [id number] Cmpnt Fem Kn Lt Cr Cmnt Prm Vngrd Intlk Implanted:Qty: 1 on 08/28/2018 by Fide Brink MD at [facility] Left: Knee [employer] 04/19/2028 [id number] / / [id number] Tray Tib 75mm Kn Cocr I Beam Implanted:Qty: 1 on 08/28/2018 by Fide Brink MD at [facility] Left: Knee [employer] 06/04/2028 [id number] / / [id number] Tibial Bearing Implanted:Qty: 1 on 08/28/2018 by Fide Brink MD at [facility] Left: Knee 01/09/2022 [id number] / / [id number] Cmnt Bone Cblt 40gm Hvisc Strl Implanted:Qty: 1 on 08/28/2018 by Fide Brink MD at [facility] Left: Knee [employer] 08/16/2019 600-15-000 / / [id number] Hawk Bone Abington-G Hv 40/20 Implanted:Qty: 1 on 08/28/2018 by Fide Brink MD at [facility] Left: Knee [employer] 12/20/2019 600-15-100 / / [id number] Procedures Procedure Name Priority Date/Time Associated Diagnosis Comments COMPREHENSIVE METABOLIC PANEL STAT 09/12/2018 6:57 PM CDT HEMOGLOBIN A1C Routine 08/29/2018 4:14 AM CDT from Last 3 Months or Most Recently Relevant to Health Maintenance Results * (ABNORMAL) COMPREHENSIVE METABOLIC PANEL (09/12/2018 6:57 PM CDT) Glucose 127(H) 74 - 106 mg/dL 09/12/2018 7:36 PM CDT [facility] Sodium 136 136 - 145 mmol/L 09/12/2018 7:36 PM CDT [facility] Potassium 4.6 3.5 - 5.1 mmol/L 09/12/2018 7:36 PM CDT [facility] Chloride 97(L) 98 - 107 mmol/L 09/12/2018 7:36 PM CDT [facility] CO2 26 23 - 31 mmol/L 09/12/2018 7:36 PM CDT [facility] Calcium 10.8(H) 8.4 - 10.2 mg/dL 09/12/2018 7:36 PM CDT [facility] Anion Gap 13 8 - 16 mmol/L 09/12/2018 7:36 PM CDT [facility] BUN 26(H) 9.8 - 20.1 mg/dL 09/12/2018 7:36 PM CDT [facility] Creatinine 0.70 0.55 - 1.02 mg/dL 09/12/2018 7:36 PM CDT [facility] Alkaline Phosphatase 124 40 - 150 U/L 09/12/2018 7:36 PM CDT [facility] ALT 17 13 - 61 U/L 09/12/2018 7:36 PM CDT [facility] AST 20 5 - 34 U/L 09/12/2018 7:36 PM CDT [facility] Protein Total 7.4 6.4 - 8.3 gm/dL 09/12/2018 7:36 PM CDT [facility] Albumin 4.0 3.2 - 4.6 gm/dL 09/12/2018 7:36 PM CDT [facility] Bilirubin Total 0.4 0.2 - 1.0 mg/dL 09/12/2018 7:36 PM CDT [facility] eGFR by MDRD >60 mL/min/1.7 3m2 09/12/2018 7:36 PM CDT [facility] eGFR by MDRD >60 mL/min/1.7 3m2 09/12/2018 7:36 PM CDT [facility] Blood BLOOD SPECIMEN / Unknown Venipuncture / Unknown 09/12/2018 6:57 PM CDT 09/12/2018 7:17 PM CDT Donnie Singh APRN-VALUATION MANAGER LAB - CHEMISTRY ORDERABLES Performing Organization Address [facility] de Phone Number [facility] [address] [place] [address] * (ABNORMAL) HEMOGLOBIN A1C (08/29/2018 4:14 AM CDT) Hemoglobin A1c 6.3(H) 4.0 - 6.1 % 08/29/2018 5:03 AM CDT [facility] Estimated Average Glucose 134 mg/dL 08/29/2018 5:03 AM CDT [facility] Blood BLOOD SPECIMEN / Unknown Venipuncture / Unknown 08/29/2018 4:14 AM CDT 08/29/2018 4:48 AM CDT Narrative [facility] - 08/29/2018 5:03 AM CDT Attention clinician: ??Reference Range has changed. Andre Mckeon MD LAB - CHEMISTRY JULES MESSINA Performing Organization Address [facility] Co de Phone Number [facility] [address] [place] [address] from Last 3 Months or Most Recently Relevant to Health Maintenance Administered Medications Advance Directives * Full Code (Latest Code [...] 4:09 PM 03/31/2014 2:59 PM Care Teams Take Down Inspector Relationship Specialty Start Date End Date Dora Arnold MD [address] [place] [address] PCP - General Internal Medicine 03/06/14 Fide Brink MD Orthopedic Surgery 03/16/12 Lynn Lubin MD [address] [place] [address] Orthopedic Surgery 06/12/13
--- OUTSIDE RECORDS SUMMARY | 2024-03-22 09:22 | XMS_ITS | Encounter Summary ---
Author Organization [facility] Healthcare Address [address] [place] [address] Care Team Providers Care Architectural Representative Name Role Phone Dora Arnold MD Primary Care Provid er Gina Spangler RN Unavailable Ameena Jeannine Lora MD Unavailable Mick Way MD Unavailable [phone] Peri FLORES MD, Azam Ibarra Unavailable [phone] Encounter Details Date Type Department Care Team (Late st Contact Info) Description 10/30/2020 Telephone [facility] [address] [place] [id number] Monica Calderon, RT Social History Tobacco Use Types Packs/Day Years Used Date Smoking Tobacco: Never Smokeless Tobacco: Never Alcohol Use Standard Drinks/Week Comments No 0 (1 standard drink = 0.6 oz pur e alcohol) AUDIT-C Answer Date Recorded Q1: How often do you have a drink containing alc ohol? Never 10/07/2020 Average Number of Drinks Not on file 021 Frequency of Binge Drinking Not on file 09/20 PHQ-2 Answer Date Recorded PHQ-2 Total Score (If total score is 3 or more points, staff should administer the PHQ-9) 0 10/07/2020 Comments No Sex and Gender Information Value Date Recorded Sex Assigned at Not on file Legal Sex Female 4:08 PM FACTORY SUPERINTENDENT Gender Identity Female 08/24/2021 12:52 PM CDT Sexual Orientation Straight 03/05/2024 2: 15 PM FACTORY SUPERINTENDENT documented as of this encounter Plan of Treatment Scheduled Procedures Name Priority Associated Diagnoses Date/Ti me INJECTION EPIDURAL LUMBAR/CA UDAL 1 LEVEL PAIN PUMP TRIAL W IMAGING 08937 Lumbar radiculopathy documented as of this encounter Visit Diagnoses Not on filedocumented in this encounter Additional Health Concerns Infection Onset Date Last Indicated Resolved Time COVID: Suspected 01/20/2021 01/20/2021 01/20/2021 2:01 PM FACTORY SUPERINTENDENT COVID: Suspected 01/20/2021 01/20/2021 01/20/2021 7:26 PM FACTORY SUPERINTENDENT documented as of this encounter Care Teams Architectural Representative Relationship Specialty Start Date End Date Dora Arnold MD [address] [facility] [address] [place] [address] PCP - General 05/20/16 Gina Spangler, RN Registered Nurse 12/27/17 12/13/22 [place] [address] [address] Consulting Physician Endocrinology Diabetes & Metabolism 03/22/[address] [place] [address] [address] Referring Physician Rheumatology 06/03/20 [place] [address] [id number] Consulting Physician Neurology 06/01/21 documented as of this encounter
--- OUTSIDE RECORDS SUMMARY | 2024-03-22 09:22 | XMS_ITS | CONTINUITY OF CARE DOCUMENT ---
Author Name eduin denny Address Unknown Organization [facility] Address [address] [facility] [place] [address] Phone [phone] Care Team Providers Care Fishing Tackle Repairer Name Role Phone Antoinette AARON, Hakeem Unavailable [phone] CHERRI AARON, MERRILL Unavailable [phone] CHERRI AARON, MERRILL Unavailable [phone] INSURANCE PROVIDERS Payer name Policy type / Coverage type [place] red alliance party ID [id number] MEDICARE COMPLETE HMO Other [id number]
--- OUTSIDE RECORDS SUMMARY | 2024-03-22 09:22 | XMS_ITS | Clinical Summary ---
Author Organization [facility] Address [address] [facility] Attn: [place] [address] Care Team Providers Care Reports Developer Name Role Phone Rafael Ledezma MD Primary Care Provider Unavailab le Social History Tobacco Use Types Packs/Day Years Used Date Smoking Tobacco: Never Assessed Comments Unknown Sex and Gender Information Value Date Recorded Sex Assigned at Not on file Legal Sex Female 5:27 AM MANAGER EVENT Gender Identity Not on file Sexual Orientation Not on file Plan of Treatment Health Maintenance Due Date Last Done Comments DTAP/TDAP/TD VACCINES (1 - Tdap) 05/09/1966 PNEUMOCOCCAL VACCINE 65+ YEARS (1 of 1 - PCV) 05/09/18 98 ZOSTER VACCINE (1 of 2) 05/09/1997 OSTEOPOROSIS SCREENING 05/09/2012 RSV VACCINE (60+ or ) (1 - 1-dose 75+ series) 05/09/2022 INFLUENZA VACCINE (#1) 2023 Care Teams Reports Developer Relationship Specialty Start Date End Date Rafael Ledezma MD NO ADDRESS ON FILE PCP - General 05/18/05
--- OUTSIDE RECORDS SUMMARY | 2024-03-22 09:22 | XMS_ITS | Encounter Summary ---
Author Organization [facility] Address [address] [place] [address] [place] [address] Care Team Providers Care Pediatric Immunologist Name Role Phone Fide Brink MD Unavailable [phone] Lynn Lubin MD Unavailable [phone] Dora Arnold MD Primary Care Provid er Elysia Mtz RN Unavailable [phone] Encounter Details Date Type Department Care Team (Late st Contact Info) Description 05/13/2014 Therapy Visit EXTERNAL NON-[facility] DEPT Unknown, Provider Social History Tobacco Use Types Packs/Day Years Used Date Smoking Tobacco: Never Smokeless Tobacco: Never Alcohol Use Standard Drinks/Week Comments No 0 (1 standard drink = 0.6 oz pur e alcohol) social ETOH twice a year Sex and Gender Information Value Date Recorded Sex Assigned at Not on file Gender Identity Not on file Sexual Orientation Not on file documented as of this encounter Functional Status Functional Status Response Date of Assess ment Is person deaf or have serious hearing difficult y? No 03/31/2014 Is person blind or have serious difficulty seein g? No 03/31/2014 Does person have serious dif ficulty walking/climbing stairs? No 03/31/2014 Does person have difficulty dressing/bathing? No 03/31/2014 Does person have difficulty doing errands alone? No 03/31/2014 Cognitive Status Response Date of Assessm ent Does person have difficulty concentrating/remembering/making decisions? No 03/31/2014 documented as of this encounter Plan of Treatment Not on file documented as of this encounter Visit Diagnoses Not on filedocumented in this encounter Care Teams Pediatric Immunologist Relationship Specialty Start Date End Date Dora Arnold MD [address] [place] [address] PCP - General Internal Medicine 03/06/14 Fide Brink MD Orthopedic Surgery 03/16/12 Lynn Lubin MD [address] [place] [address] Orthopedic Surgery 06/12/13 Elysia Mtz, RN Dairy Manufacturing Technologist 09/24/14 08/28/18 documented as of this encounter
--- OUTSIDE RECORDS SUMMARY | 2024-03-22 09:22 | XMS_ITS | Encounter Summary ---
Author Organization [facility] Healthcare Address [address] [place] [address] Care Team Providers Care Accounts Payable Analyst Name Role Phone Dora Arnold MD Primary Care Provid er Jeannine Gorman MD Unavailable Mick Way MD Unavailable [phone] Peri FLORES MD, Carlos M. Unavailable [phone] Reason for Referral * Diagnostic Lab (Routine) - Pending Review Specialty Diagnoses / Procedures Referred By Yamil little Referred To Contact Lab Diagnoses Fatigue Screening for diabetes mellitus (DM) Procedures URINE QUANTATIVE LIGHT CHAIN - Miscellaneous Test Kimberli Young MD [address] [place] [address] Phone: tel: fax: Referral ID Status Reason Start Date Expiration Date V isits Requested Visits Authorized [id number] Pending Review 03/20/2024 04/19/2025 1 1 NNA SPECIALIST * Diagnostic Lab (Routine) - Pending Review Specialty Diagnoses / Procedures Referred By Yamil little Referred To Contact Lab Diagnoses Fatigue Screening for diabetes mellitus (DM) Procedures URINE PROTEIN ELECTROPHORESIS WITH IMMUNOFIXATION - Miscellaneous Test Kimberli Young MD [address] [place] [address] Phone: tel: fax: Referral ID Status Reason Start Date Expiration Date V isits Requested Visits Authorized [id number] Pending Review 03/20/2024 04/19/2025 1 1 NNA SPECIALIST Encounter Details Date Type Department Care Team (Latest Contact Info) Description 03/20/2024 12:53 PM ANTENNA SPECIALIST - 03/20/2024 11:59 PM ANTENNA SPECIALIST [place] [address] Fatigue; Screening for diabetes mellitus (DM); Vitamin D deficiency Discharge Disposition: Discharge to home or self care Social History Tobacco Use Types Packs/Day Years Used Date Smoking Tobacco: Never Smokeless Tobacco: Never Alcohol Use Standard Drinks/Week Comments No 0 (1 standard drink = 0.6 oz pur e alcohol) AUDIT-C Answer Date Recorded Q1: How often do you have a drink containing alcohol? Never 03/05/2024 Q2: How many drinks containi ng alcohol do you have on a typical day when you are drinking? Patient does not drink Q3: How often do you have si x or more drinks on one occasion? Never 03/05/2024 PHQ-2 Answer Date Recorded PHQ-2 Total Score (If total score is 3 or more points, staff should administer the PHQ-9) 0 03/05/2024 Comments No Sex and Gender Information Value Date Recorded Sex Assigned at Not on file Legal Sex Female 4:08 PM ANTENNA SPECIALIST Gender Identity Female 08/24/2021 12:52 PM CDT Sexual Orientation Straight 03/05/2024 2: 15 PM ANTENNA SPECIALIST documented as of this encounter Medications at Time of Discharge blood-glucose meter miscIndications: Type 2 diabetes mellitus with hyperglycemia, without long-term current use of insulin (HCC) One Touch Ultra Meter Use daily to check blood sugar Dx; E11.65 1 each 11/03/2022 Cosentyx Pen pen injector 10/17/2022 ezetimibe (ZETIA) 10 mg tablet Take 1 tablet (10 mg total) by mouth daily 30 tablet 11 04/27/2023 Farxiga 10 mg tabletIndication s:Type 2 diabetes mellitus with hyperglycemia, without long-term current use of insulin ([facility]) TAKE 1 TABLET BY MOUTH DAILY 90 tablet 3 11/13/2023 folic acid (FOLVITE) 1 mg tablet 09/19/2019 gabapentin (NEURONTIN) 600 mg tabletIndication s:Neuropathic pain of both feet Take 1 tablet (600 mg total) by mouth 3 (three) times a day 270 tablet 3 02/06/2024 lancets 33 gauge miscIndications: Type 2 diabetes mellitus with hyperglycemia, without long-term current use of insulin ([facility]) ONE TOUCH Delica Plus Lancets Check blood sugar daily Dx: E11.65 200 each 3 08/29/2023 lancets miscIndications: Type 2 diabetes mellitus with hyperglycemia, without long-term current use of insulin ([facility]) Check blood sugar daily 200 each 1 06/28/2022 lisinopril-hydro CHLOROthiazide (ZESTORETIC) 20-12.5 mg per tablet TAKE 1 TABLET BY MOUTH TWICE DAILY 180 tablet 3 08/08/2022 melatonin 3 mg tablet,disintegr ating Take by mouth methotrexate 2.5 mg tablet 09/19/2019 mometasone (NASONEX) 50 mcg/actuation nasal spray spray 1 spray by intranasal route every day in each nostril 1 2 06/22/2009 multivitamin-min erals-lutein (CENTRUM SILVER) tablet one daily 30 0 06/22/2009 Myrbetriq 50 mg tablet extended release 24 hr Take 1 tablet (50 mg total) by mouth daily 10/08/2020 OneTouch Ultra Test stripIndications :Type 2 diabetes mellitus with hyperglycemia, without long-term current use of insulin ([facility]) Check blood sugar daily 200 strip 1 06/28/2022 vitamin D3-vitamin K2 25 mcg (1,000 unit)-90 mcg tablet,disintegr ating Take 2,000 Units by mouth daily documented as of this encounter Discharge Disposition Disposition Code Departure Means Destination Discharge to home or self care documented in this encounter Plan of Treatment Pending Results Name Type Priority Associated Diagnoses Date /Time URINE PROTEIN ELECTROPHORESIS WITH IMMUNOFIXATION - Miscellaneous Lab Test Lab Routine Fatigue Screening for diabetes mellitus (DM) 03/20/2024 12:53 PM ANTENNA SPECIALIST Protein electrophoresis with reflex, serum Lab Routine Fatigue Screening for diabetes mellitus (DM) 03/20/2024 12:53 PM ANTENNA SPECIALIST URINE QUANTATIVE LIGHT CHAIN - Miscellaneous Lab Test Lab Routine Fatigue Screening for diabetes mellitus (DM) 03/20/2024 12:53 PM ANTENNA SPECIALIST ANGELITO ab ql w/rflx to ANGELITO qn Lab Routine Fatigue Screening for diabetes mellitus (DM) 03/20/2024 12:53 PM ANTENNA SPECIALIST Vitamin B6 Lab Routine Fatigue Screening for diabetes mellitus (DM) 03/20/2024 12:53 PM ANTENNA SPECIALIST Vitamin B1 Lab Routine Fatigue Screening for diabetes mellitus (DM) 03/20/2024 12:53 PM ANTENNA SPECIALIST Scheduled Orders Name Type Priority Associated Diagnoses Orde r Schedule URINE PROTEIN ELECTROPHORESIS WITH IMMUNOFIXATION - Miscellaneous Test Lab Routine Fatigue Screening for diabetes mellitus (DM) Once for 1 Occurrences starting 03/20/2024 until 03/20/2024 Protein electrophoresis with reflex, serum Lab Routine Fatigue Screening for diabetes mellitus (DM) Once for 1 Occurrences starting 03/20/2024 until 03/20/2024 URINE QUANTATIVE LIGHT CHAIN - Miscellaneous Test Lab Routine Fatigue Screening for diabetes mellitus (DM) Once for 1 Occurrences starting 03/20/2024 until 03/20/2024 ANGELITO ab ql w/rflx to ANGELITO qn Lab Routine Fatigue Screening for diabetes mellitus (DM) Once for 1 Occurrences starting 03/20/2024 until 03/20/2024 Vitamin B6 Lab Routine Fatigue Screening for diabetes mellitus (DM) Once for 1 Occurrences starting 03/20/2024 until 03/20/2024 Vitamin B1 Lab Routine Fatigue Screening for diabetes mellitus (DM) Once for 1 Occurrences starting 03/20/2024 until 03/20/2024 Scheduled Procedures Name Priority Associated Diagnoses Date/Ti me INJECTION EPIDURAL LUMBAR/CA UDAL 1 LEVEL PAIN PUMP TRIAL W IMAGING [id number] Lumbar radiculopathy documented as of this encounter Procedures Procedure Name Priority Date/Time Associated Diagnosis Comments CLINICAL PATHOLOGY REPORT Routine 03/20/2024 12:53 PM ANTENNA SPECIALIST EGFR Routine 03/20/2024 12:53 PM ANTENNA SPECIALIST Fatigue Screening for diabetes mellitus (DM) DIFFERENTIAL AUTO Routine 03/20/2024 12: 53 PM ANTENNA SPECIALIST Fatigue Screening for diabetes mellitus (DM) CBC WITH AUTO DIFFERENTIAL Routine 03/20/2024 12:53 PM ANTENNA SPECIALIST Fatigue Screening for diabetes mellitus (DM) CYCLIC CITRUL PEPTIDE ANTIBODY, IGG Routine 03/20/2024 12:53 PM ANTENNA SPECIALIST Fatigue Screening for diabetes mellitus (DM) VITAMIN D 25 HYDROXY Routine 03/20/2024 12:53 PM ANTENNA SPECIALIST Fatigue Screening for diabetes mellitus (DM) Vitamin D deficiency ERYTHROCYTE SEDIMENTATION RATE Routine 03/20/2024 12:53 PM ANTENNA SPECIALIST Fatigue Screening for diabetes mellitus (DM) RHEUMATOID FACTOR Routine 03/20/2024 12: 53 PM ANTENNA SPECIALIST Fatigue Screening for diabetes mellitus (DM) CRP (ACUTE PHASE) Routine 03/20/2024 12: 53 PM ANTENNA SPECIALIST Fatigue Screening for diabetes mellitus (DM) URIC ACID Routine 03/20/2024 12:53 PM ANTENNA SPECIALIST Fatigue Screening for diabetes mellitus (DM) T4, FREE Routine 03/20/2024 12:53 PM ANTENNA SPECIALIST Fatigue Screening for diabetes mellitus (DM) MAGNESIUM Routine 03/20/2024 12:53 PM ANTENNA SPECIALIST Fatigue Screening for diabetes mellitus (DM) HEMOGLOBIN A1C Routine 03/20/2024 12:53 PM ANTENNA SPECIALIST Fatigue Screening for diabetes mellitus (DM) FOLATE Routine 03/20/2024 12:53 PM ANTENNA SPECIALIST Fatigue Screening for diabetes mellitus (DM) FERRITIN Routine 03/20/2024 12:53 PM ANTENNA SPECIALIST Fatigue Screening for diabetes mellitus (DM) VITAMIN B12 Routine 03/20/2024 12:53 PM ANTENNA SPECIALIST Fatigue Screening for diabetes mellitus (DM) CREATINE KINASE (CK), TOTAL Routine 03/20/2024 12:53 PM ANTENNA SPECIALIST Fatigue Screening for diabetes mellitus (DM) COMPREHENSIVE METABOLIC PANEL Routine 03/20/2024 12:53 PM ANTENNA SPECIALIST Fatigue Screening for diabetes mellitus (DM) documented in this encounter Results * Clinical pathology report (03/20/2024 12:53 PM ANTENNA SPECIALIST) Miscellaneous 03/20/2024 12: 53 PM ANTENNA SPECIALIST 03/21/2024 8:20 AM ANTENNA SPECIALIST Narrative 03/21/2024 4:23 PM ANTENNA SPECIALIST [facility] results best viewed via link to PDF [facility] Department of Pathology [address] [place] [id number] Final Report Note to Patients: This report may contain a detailed description of human tissue sent by a health care provider to the laboratory for pathologic evaluation. The content of this report is essential for diagnosis and may provide important critical findings. This information may be unfamiliar to patients to review without a medical professional present. It is advised that the patient review this report in the presence of a health care provider who can answer questions and explain the details. Patient Name: ? JANE WALKERDino Address: ??[address] [place] [address] Gender: ??F : ??1945 (Age: 78) Service: ?? Location: ?? Hospital #: ??[id number] Patient Type: ?? SPECIMEN Taken: ??03/20/2024 Received: ?? 03/21/2024 Accessioned: ??03/21/2024 Physician(s): ??Kimberli Young M.D. Specimen(s) Received A: Blood (serum) Serum Protein Electrophoresis with Immunofixation/ImmunotypingReported:03/21/2024 Interpretation: Serum Protein Electrophoresis: Normal serum protein electrophoresis pattern. Serum Protein Immunofixation: Normal serum immunofixation study. Comment: Serum Protein Electrophoresis: There are no significant abnormalities of the protein fractions. Serum Protein Immunofixation: Examination of G, A and M heavy chains as well as kappa and lambda light chains reveals no evidence of abnormal peaks. See Epic and/or separate report for protein fraction table. Joshua Bell MD PhDReport Electronically Reviewed and Signed Out By ??Joshua Bell MD PhD ??03/21/2024 16:22:46 The performance characteristics of some immunohistochemical stains, fluorescence in-situ hybridization tests and immunophenotyping by flow cytometry cited in this report (if any) were determined by the Surgical Pathology Department at [facility] as part of an ongoing head of quality program and in compliance with federally mandated regulations drawn from the Clinical Laboratory Improvement Act of 1988 (CLIA '88). ??Some of these tests rely on the use of analyte specific reagents and are subject to specific labeling requirements by the US Food and Drug Administration. ??Such diagnostic tests may only be performed in a facility that is certified by the Department of Health and Human Services as a high complexity laboratory under CLIA '88. The FDA has determined that such clearance or approval is not necessary. ??This test is used for clinical purposes. ??It should not be regarded as investigational or for research. ??Nevertheless, federal rules concerning the medical use of analyte specific reagents require that the following disclaimer be attached to the report: This test was developed and its performance characteristics determined by the Surgical Pathology Department [facility]. ??It has not been cleared or approved by the U. S. Food and Drug Administration. REPORT IMAGES AND SCANNED DOCUMENTS, IF INCLUDED, ONLY VIEWABLE IN PDF VERSION OF REPORTe o us Kimberli Young MD LAB PATHOLOGY ORDERABLES Final R esult * eGFR (03/20/2024 12:53 PM ANTENNA SPECIALIST) eGFR 65 >=60 mL/min/1. 73 m2 Comment: Interpretive Data Reference Interval Normal ?>/= 90 mL/min/1.73m2 Mildly decreased* ? 60 - 89 mL/min/1.73m2 Mildly to moderately decreased ?45 - 59 mL/min/1.73m2 Moderately to severely decreased ??30 - 44 mL/min/1.73m2 Severely decreased ?15 - 29 mL/min/1.73m2 Kidney Failure ?< 15 ??mL/min/1.73m2 *Relative to young adult level Estimated glomerular filtration rate is determined by the 2020 CKD-EPI equation recommended by the National Kidney Foundation (A Unifying Approach to GFR Estimation: Recommendations of the NKF-ASK Task Force on Reassessing the Inclusion of Race in Diagnosing Kidney Disease, JASN 2020). The CKD-EPI equation should not be used for patients with unstable renal function and has not been validated in children and those over 70. Current interpretive data was last reviewed 2020. Blood 03/20/2024 12:5 3 PM ANTENNA SPECIALIST 03/20/2024 10:37 PM ANTENNA SPECIALIST us Kimberli Young MD LAB BLOOD ORDERABLES Final Resul t ANDREA [address] Department [place] [address] * Differential, auto (03/20/2024 12:53 PM ANTENNA SPECIALIST) Neutrophil abs 4.3 1.5 - 6.5 K/cumm Imm gran abs 0.0 0.0 - 0.1 K/cumm [facility] Lymphocyte abs 1.6 0.8 - 3.3 K/cumm [facility] Monocyte abs 0.5 0.2 - 0.8 K/cumm [facility] Eosinophil abs 0.4 0.0 - 0.5 K/cumm [facility] Basophil abs 0.1 0.0 - 0.1 K/cumm [facility] Neutrophil pct 62.9 % [facility] Comment: Interpretive Data Percent cell count reference ranges are not reported, since discordance with absolute values may lead to misinterpretation of CBC data. Current Interpretive Data was last revised on 2017. Imm gran pct 0.4 % [facility]REA Comment: Interpretive Data Percent cell count reference ranges are not reported, since discordance with absolute values may lead to misinterpretation of CBC data. Current Interpretive Data was last revised on 2017. Lymphocyte pct 23.1 % [facility] Comment: Interpretive Data Percent cell count reference ranges are not reported, since discordance with absolute values may lead to misinterpretation of CBC data. Current Interpretive Data was last revised on 2017. Monocyte pct 7.4 % [facility] Comment: Interpretive Data Percent cell count reference ranges are not reported, since discordance with absolute values may lead to misinterpretation of CBC data. Current Interpretive Data was last revised on 2017. Eosinophil pct 5.2 % [facility] Comment: Interpretive Data Percent cell count reference ranges are not reported, since discordance with absolute values may lead to misinterpretation of CBC data. Current Interpretive Data was last revised on 2017. Basophil pct 1.0 % [facility] Comment: Interpretive Data Percent cell count reference ranges are not reported, since discordance with absolute values may lead to misinterpretation of CBC data. Current Interpretive Data was last revised on 2017. Blood 03/20/2024 12:5 3 PM ANTENNA SPECIALIST 03/20/2024 10:17 PM ANTENNA SPECIALIST us Kimberli Young MD LAB BLOOD ORDERABLES Final Resul t [facility] [address] [address] Department [place] [address] * (ABNORMAL) Comprehensive metabolic panel (03/20/2024 12:53 PM ANTENNA SPECIALIST) Sodium 138 135 - 145 mmol/L Potassium, pl 4.3 3.3 - 4.9 mmol/L [facility] Chloride 99 97 - 110 mmol/L [facility] CO2 28 22 - 32 mmol/L [facility] Anion gap 11 2 - 15 mmol/L [facility] BUN 27(H) 6 - 25 mg/dL [facility] Creatinine 0.91 0.60 - 1.10 mg/dL [facility] Glucose 183 70 - 199 mg/dL [facility] Comment: Interpretive Data Fasting glucose >/= 126 mg/dl is diagnostic for diabetes. ?? Fasting is defined as no caloric intake for at least 8 hours. Fasting glucose between 100 mg/dl to 125 mg/dl is diagnostic of prediabetes. In a patient with classic symptoms of hyperglycemia or hyperglycemic crisis, a random glucose >/= 200 mg/dl is diagnostic for diabetes. In the absence of unequivocal hyperglycemia, results should be confirmed by repeat testing. The classification and Diagnosis of Diabetes Diabetes Care 202; 46: S19-S40. Current interpretive data was last revised 2022. Calcium 9.6 8.5 - 10.3 mg/dL [facility] Bilirubin, total 0.6 0.1 - 1.2 mg/dL [facility] Protein, pl 6.9 6.5 - 8.5 g/dL [facility] Albumin 4.0 3.5 - 5.0 g/dL [facility] Alk phos 92 40 - 130 Units/L [facility] ALT 16 7 - 45 Units/L [facility] AST 33 10 - 45 Units/L [facility] Blood (Blood, Venous) 03/20/2024 12:53 PM ANTENNA SPECIALIST 03/20/2024 10:17 PM ANTENNA SPECIALIST Narrative [facility] - 03/20/2024 11:11 PM ANTENNA SPECIALIST FAX RESULT TO [phone] KIMBERLI YOUNG us Kimberli Young MD LAB BLOOD ORDERABLES Final Resul t [facility] [address] Department [place] [address] * (ABNORMAL) CBC with auto differential (03/20/2024 12:53 PM ANTENNA SPECIALIST) WBC 6.9 3.8 - 9.9 K/cumm Hgb 15.6(H) 11.9 - 15.5 g/dL [facility] Hct 50.1(H) 35.6 - 45.5 % [facility] Plt 287 150 - 400 K/cumm [facility] MPV 12.4(H) 9.1 - 12.3 fL [facility] RBC 5.24(H) 3.90 - 5.20 M/cumm [facility] MCV 95.6 81.3 - 96.4 fL [facility] MCH 29.8 27.1 - 33.3 pg [facility] MCHC 31.1(L) 32.3 - 35.7 g/dL [facility] RDW CV 13.7 11.1 - 14.9 % [facility] RDW SD 48.2(H) 35.7 - 48.1 fL [facility] NRBC abs 0.00 0.00 - 0.01 K/cumm [facility] Blood 03/20/2024 12:5 3 PM ANTENNA SPECIALIST 03/20/2024 10:17 PM ANTENNA SPECIALIST Narrative ANDREA - 03/20/2024 10:53 PM ANTENNA SPECIALIST FAX RESULT TO [phone] KIMBERLI YOUNG us Kimberli Young MD LAB BLOOD ORDERABLES Final Resul t Performing Organization Address City/[facility] Co de Phone Number ANDREA [address] [address] [facility] [employer] [address] * Vitamin B12 (03/20/2024 12:53 PM ANTENNA SPECIALIST) Vitamin B12 450 230 - 1,250 pg/mL Blood (Blood, Venous) 03/20/2024 12:53 PM ANTENNA SPECIALIST 03/20/2024 10:17 PM ANTENNA SPECIALIST Narrative ANDREA - 03/20/2024 11:11 PM ANTENNA SPECIALIST FAX RESULT TO [phone] KIMBERLI YOUNG us Kimberli Young MD LAB BLOOD ORDERABLES Final Resul t Performing Organization Address [facility] de Phone Number ANDREA [address] [address] [facility] [employer] [address] * Folate (03/20/2024 12:53 PM ANTENNA SPECIALIST) Folic acid >20.0 >=5.0 ng/mL Comment:Hemolysis present. R esults may be affected. Blood 03/20/2024 12:5 3 PM ANTENNA SPECIALIST 03/20/2024 10:17 PM ANTENNA SPECIALIST us Kimberli Young MD LAB BLOOD ORDERABLES Final Resul t Performing Organization Address [facility] Co de Phone Number ANDREA [address] [address] [facility] [employer] [address] * Rheumatoid factor (03/20/2024 12:53 PM ANTENNA SPECIALIST) Rheumatoid factor, quant <10 <=15 IUnits/mL Blood (Blood, Venous) 03/20/2024 12:53 PM ANTENNA SPECIALIST 03/20/2024 10:17 PM ANTENNA SPECIALIST Narrative ANDREA - 03/20/2024 11:30 PM ANTENNA SPECIALIST FAX RESULT TO [phone] KIMBERLI YOUNG us Kimberli Young MD LAB BLOOD ORDERABLES Final Resul t Performing Organization Address [facility] de Phone Number [facility] [address] [address] Department [place] [employer] [address] * Cyclic citrul peptide antibody, IgG (03/20/2024 12:53 PM ANTENNA SPECIALIST) CCP Ab <0.5 <=2.9 units/mL Comment: Interpretive data Negative: <3 units/mL Positive: > or equal to 3 units/mL Current interpretive data was last revised on 2016. Testing performed by: [facility], [address] [place]., [address] Blood 03/20/2024 12:5 3 PM ANTENNA SPECIALIST 03/21/2024 9:56 AM ANTENNA SPECIALIST Narrative ANDREA [facility] 03/21/2024 12:27 PM ANTENNA SPECIALIST FAX RESULT TO [phone] KIMBERLI YOUNG us Kimberli Young MD LAB BLOOD ORDERABLES Final Resul t Performing Organization Address [facility] Co de Phone Number ANDREA [address] [address] Department [place] [employer] [address] * Vitamin D 25 hydroxy (03/20/2024 12:53 PM ANTENNA SPECIALIST) Vitamin D 25-OH 51 30 - 80 ng/mL Blood 03/20/2024 12:5 3 PM ANTENNA SPECIALIST 03/20/2024 10:17 PM ANTENNA SPECIALIST Narrative ANDREA - 03/20/2024 11:19 PM ANTENNA SPECIALIST FAX RESULT TO [phone] KIMBERLI YOUNG Kimberli Young MD LAB BLOOD ORDERABLES Final Resul t Performing Organization Address City/[facility] de Phone Number ANDREA FLORES [address] [address] Department [employer] [address] * (ABNORMAL) T4, free (03/20/2024 12:53 PM ANTENNA SPECIALIST) Free T4 0.88(L) 0.90 - 1.70 ng/dL Blood (Blood, Venous) 03/20/2024 12:53 PM ANTENNA SPECIALIST 03/20/2024 10:17 PM ANTENNA SPECIALIST Narrative [facility] - 03/20/2024 11:11 PM ANTENNA SPECIALIST FAX RESULT TO [phone] KIMBERLI YOUNG Kimberli Young MD LAB BLOOD ORDERABLES Final Resul t Performing Organization Address [facility] Co de Phone Number ANDREA FLORES [address] [place] [address] * Ferritin (03/20/2024 12:53 PM ANTENNA SPECIALIST) Pathologist [facility] Ferritin 150 15 - 150 ng/mL Blood (Blood, Venous) 03/20/2024 12:53 PM ANTENNA SPECIALIST 03/20/2024 10:17 PM ANTENNA SPECIALIST Narrative [facility] - 03/20/2024 11:11 PM ANTENNA SPECIALIST FAX RESULT TO [phone] KIMBERLI YOUNG us Kimberli Young MD LAB BLOOD ORDERABLES Final Resul t Performing Organization Address [facility] Co de Phone Number AGUSTOPHOEBE FLORES [address] [address] Department [employer] [address] * (ABNORMAL) Creatine kinase (CK), total (03/20/2024 12:53 PM ANTENNA SPECIALIST) Pathologist [facility] CK 25(L) 30 - 200 Units/L Blood (Blood, Venous) 03/20/2024 12:53 PM ANTENNA SPECIALIST 03/20/2024 10:17 PM ANTENNA SPECIALIST Narrative [facility] - 03/20/2024 11:11 PM ANTENNA SPECIALIST FAX RESULT TO [phone] KIMBERLI YOUNG us Kimberli Young MD LAB BLOOD ORDERABLES Final Resul t Performing Organization Address [facility] Co de Phone Number ANDREA FLORES [address] [address] [facility] [employer] [address] * Uric acid (03/20/2024 12:53 PM ANTENNA SPECIALIST) Uric acid 5.4 2.5 - 7.0 mg/dL Blood (Blood, Venous) 03/20/2024 12:53 PM ANTENNA SPECIALIST 03/20/2024 10:17 PM ANTENNA SPECIALIST Narrative [facility] - 03/20/2024 11:29 PM ANTENNA SPECIALIST FAX RESULT TO [phone] KIMBERLI YOUNG us Kimberli Young MD LAB BLOOD ORDERABLES Final Resul t Performing Organization Address [facility] de Phone Number AGUSTOPHOEBE FLORES [address] [address] Department [employer] [place] [address] * Erythrocyte sedimentation rate (03/20/2024 12:53 PM ANTENNA SPECIALIST) Erythrocyte sedimentation rate 5 1 - 30 mm/hr Blood (Blood, Venous) 03/20/2024 12:53 PM ANTENNA SPECIALIST 03/20/2024 10:17 PM ANTENNA SPECIALIST Narrative [facility] [place] - 03/21/2024 12:50 AM ANTENNA SPECIALIST FAX RESULT TO [phone] KIMBERLI YOUNG us Kimberli Young MD LAB BLOOD ORDERABLES Final Resul t Performing Organization Address [facility] Co de Phone Number ANDREA FLORES [address] Department [place] [address] * CRP (acute phase) (03/20/2024 12:53 PM ANTENNA SPECIALIST) CRP 3.2 <=10.0 mg/L Blood (Blood, Venous) 03/20/2024 12:53 PM ANTENNA SPECIALIST 03/20/2024 10:17 PM ANTENNA SPECIALIST Narrative [facility] - 03/20/2024 11:12 PM ANTENNA SPECIALIST FAX RESULT TO [phone] KIMBERLI YOUNG us Kimberli Young MD LAB BLOOD ORDERABLES Final Resul t Performing Organization Address City/[facility] Co de Phone Number ANDREA [address] [facility] [place] [address] * Magnesium (03/20/2024 12:53 PM ANTENNA SPECIALIST) Magnesium 2.1 1.4 - 2.5 mg/dL Blood (Blood, Venous) 03/20/2024 12:53 PM ANTENNA SPECIALIST 03/20/2024 10:17 PM ANTENNA SPECIALIST Narrative ANDREA FLORES - 03/20/2024 11:11 PM ANTENNA SPECIALIST FAX RESULT TO [phone] KIMBERLI YOUNG Kimberli Young MD LAB BLOOD ORDERABLES Final Resul t Performing Organization Address [facility] de Phone Number ANDREA [address] [place] [address] * (ABNORMAL) Hemoglobin A1c (03/20/2024 12:53 PM ANTENNA SPECIALIST) Hgb A1C 7.1(H) 4.0 - 5.6 % Estimated Average Glucose 157 mg/dL ANDREA FLORES Comment: The ADA recommends reporting an estimated Average Glucose (eAG) with all Hemoglobin A1c results using the equation derived from a study of 507 normal and diabetic adults. ??Minority populations were underrepresented and children were not included. ?? (Diabetes Care 31:1720-3891, 2008). ??The eAG is not equivalent to a fasting glucose. Blood (Blood, Venous) 03/20/2024 12:53 PM ANTENNA SPECIALIST 03/20/2024 10:17 PM ANTENNA SPECIALIST Narrative ANDREA FLORES - 03/20/2024 11:04 PM ANTENNA SPECIALIST FAX RESULT TO [phone] KIMBERLI YOUNG us Kimberli Young MD LAB BLOOD ORDERABLES Final Resul t Performing Organization Address [facility] Co de Phone Number ANDREA [address] Department [place] [address] documented in this encounter Visit Diagnoses Diagnosis Fatigue Other malaise and fatigue Screening for diabetes mellitus (DM) Screening for diabetes mellitus Vitamin D deficiency documented in this encounter Care Teams Accounts Payable Analyst Relationship Specialty Start Date End Date Dora Arnold MD [address] [place], [place] [id number] PCP - General 05/20/16 [place] [id number] [address] [facility] [address] [place] [address] Consulting Physician Endocrinology Diabetes & Metabolism 03/22/[address] [place] [address] [address] [facility] [address] [place] [address] Referring Physician Rheumatology 06/03/20 [place] [address] [address] [facility] [address] [place] [address] Consulting Physician Neurology 06/01/21 documented as of this encounter
--- OUTSIDE RECORDS SUMMARY | 2024-03-22 09:22 | XMS_ITS | Encounter Summary ---
Author Organization [facility] Address [address] [place] [address] [place] [address] Care Team Providers Care Diesel Engine Pipe Fitter Name Role Phone Fide Brink MD Unavailable [phone] Lynn Lubin MD Unavailable Dora Arnold MD Primary Care Provid er Elysia Mtz RN Unavailable [phone] Encounter Details Date Type Department Care Team (Late st Contact Info) Description 04/15/2014 Therapy Visit EXTERNAL NON-[facility] DEPT Unknown, Provider [...] on filedocumented in this encounter Care Teams Diesel Engine Pipe Fitter Relationship Specialty Start Date End Date Dora Arnold MD [address] [place] [address] PCP - General Internal Medicine 03/06/14 Fide Brink MD Orthopedic Surgery 03/16/12 Lynn Lubin MD [address] [place] [address] Orthopedic Surgery 06/12/13 Elysia Mtz, RN Ship Manager 09/24/14 08/28/18 documented as of this encounter
--- OUTSIDE RECORDS SUMMARY | 2024-03-22 09:22 | XMS_ITS | Encounter Summary ---
Author Organization [facility] Address 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
--- OUTSIDE RECORDS SUMMARY | 2024-03-22 09:22 | XMS_ITS | Clinical Summary ---
Author Organization [facility] Address [facility] [place] [address] Care Team Providers Care Aboriginal Education Worker Coordinator Name Role Phone Dora Arnold MD Primary Care Provid er Jeannine Gorman MD Unavailable Mick Way MD Unavailable [phone] Peri FLORES MD, Carlos M. Unavailable [phone] Allergies Active Allergy Reactions Criticality Noted Date Comments Adalimumab Rash,Unknown Medium 10/28/2017 Reaction: Rash, , Adhesive Tape-Silicones Rash Medium 06/28/2018 Silk tape will pull skin off Atorvastatin Muscle pain Medium 01/20/2022 Cyclobenzaprine Other (See comments),Unknown Low 10/28/2017 Reaction: Feels funny, ?? drowsiness Lisinopril Headache,Unknown Low 10/28/2017 Reaction: Headache, , Reaction: Headache, Patient denies an allergy to this medication Metformin Diarrhea High 10/27/2020 Other Other (See comments) Low 10/27/2020 Semaglutide Diarrhea,Vomiting High 03/23/2021 Eromeug-Gwy-Hzt Reductase Inhibitors Muscle pain High 03/05/2024 Sulfa (Sulfonamide Antibiotics) Unknown High 10/28/2017 Sulfanilamide Rash Medium Reaction: Rash, , Reaction: Rash, Tramadol Rash,Unknown Medium 10/28/2017 Reaction: Rash, , Trimethobenzamide Hives Medium Medications mometasone (NASONEX) 50 mcg/actuation nasal spray spray 1 spray by intranasal route every day in each nostril 1 2 0 Active multivitamin-mi nerals-lutein (CENTRUM SILVER) tablet one daily 30 0 0 Active methotrexate 2.5 mg tablet 0 Active folic acid (FOLVITE) 1 mg tablet 0 Active Myrbetriq 50 mg tablet extended release 24 hr Take 1 tablet (50 mg total) by mouth daily 1 Active lancets miscIndications :Type 2 diabetes mellitus with hyperglycemia, without long-term current use of insulin ([facility]) Check blood sugar daily 200 each 1 3 Active OneTouch Ultra Test stripIndication s:Type 2 diabetes mellitus with hyperglycemia, without long-term current use of insulin ([facility]) Check blood sugar daily 200 strip 1 3 Active lisinopril-hydr oCHLOROthiazide (ZESTORETIC) 20-12.5 mg per tablet TAKE 1 TABLET BY MOUTH TWICE DAILY 180 tablet 3 3 Active Cosentyx Pen pen injector 3 Active blood-glucose meter miscIndications :Type 2 diabetes mellitus with hyperglycemia, without long-term current use of insulin ([facility]) One Touch Ultra Meter Use daily to check blood sugar Dx; E11.65 1 each 3 Active vitamin D3-vitamin K2 25 mcg (1,000 unit)-90 mcg tablet,disinteg rating Take 2,000 Units by mouth daily Active melatonin 3 mg tablet,disinteg rating Take by mouth Active ezetimibe (ZETIA) 10 mg tablet Take 1 tablet (10 mg total) by mouth daily 30 tablet 11 4 04/27/19 25 Active lancets 33 gauge miscIndications :Type 2 diabetes mellitus with hyperglycemia, without long-term current use of insulin ([facility]) ONE TOUCH Delica Plus Lancets Check blood sugar daily Dx: E11.65 200 each 3 4 Active Farxiga 10 mg tabletIndicatio ns:Type 2 diabetes mellitus with hyperglycemia, without long-term current use of insulin ([facility]) TAKE 1 TABLET BY MOUTH DAILY 90 tablet 3 4 Active gabapentin (NEURONTIN) 600 mg tabletIndicatio ns:Neuropathic pain of both feet Take 1 tablet (600 mg total) by mouth 3 (three) times a day 270 tablet 3 4 Active Active Problems Problem Noted Date Diagnosed Date Chronic wound 03/05/2024 Assessment & Plan (03/05/2024 4:20 PM NURSING UNIT COORDINATOR): Necrobiosis diabeticorum would be in the differential. Referral to wound care clinic at [facility] Statin intolerance 08/09/2022 Class 3 severe obesity due t o excess calories with serious comorbidity and body mass index (BMI) of 40.0 to 44.9 in adult 04/21/2022 Assessment & Plan (04/21/2022 1:49 PM NURSING UNIT COORDINATOR): Discussed healthy diet and importance of regular physical activity (20- 30min/day, 150min/wk). Has been riding exercise bike 30 min 3x/wk at home. Walks around stores several times/wk. Hyperlipidemia associated with type 2 diabetes miller cid 04/20/2022 Assessment & Plan (04/27/2023 5:22 PM NURSING UNIT COORDINATOR): Can not tolerate statin Start Zetia 10 mg daily Assessment & Plan (11/01/2022 1:52 PM CDT): LDL above goal Will try low dose rosuvastatin, 5 mg daily Assessment & Plan (04/21/2022 1:50 PM NURSING UNIT COORDINATOR): Chronic problem. Not currently taking statin (muscle pain). Reports that primary had her stop some time ago. Last lipid panel: 05/26/21 LDL=82, TG=93 Will update lipid panel. Verified that she uses [employer]. Aware to check results/results letter in [employer]. Will contact by phone if needed. Essential hypertension, benign 01/20/2022 Assessment & Plan (01/20/2022 2:06 PM NURSING UNIT COORDINATOR): Continue Lisinopril HCT Essential tremor 01/20/2022 Assessment & Plan (01/20/2022 1:59 PM NURSING UNIT COORDINATOR): Worsening, off Propranolol Basal cell carcinoma (BCC) of skin of nose 01/20 Assessment & Plan (01/20/2022 2:05 PM NURSING UNIT COORDINATOR): Recently dx She is considering surgery vs XRT Statin myopathy 01/20/2022 Assessment & Plan (01/20/2022 2:22 PM NURSING UNIT COORDINATOR): New Dc statin Cervicalgia 12/19/2019 Cervical radiculopathy 12/19/2019 Cervical spinal stenosis 12/19/2019 Spondylosis of cervical 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 myelopathy 12/19/2019 Chronic bilateral low back pain with bilateral s ciatica 12/27/2017 Spinal stenosis of lumbar re gion with neurogenic claudication 12/27/2017 Radiculopathy, lumbosacral region 12/27/2017 Lumbosacral spondylosis without myelopathy 12/27 Painful diabetic neuropathy (CMS/HCC) 12/27/2017 Hyperthyroidism 10/24/2017 Assessment & Plan (03/05/2024 4:11 PM NURSING UNIT COORDINATOR): Update TFTs Restart methimazole, if indicated Assessment & Plan (04/27/2023 5:21 PM NURSING UNIT COORDINATOR): Chronic, with mild hypothyroidism Will stop methimazole Recheck TSH, free T4 and free T4 in 3 months Patient advised to call the office in case of she develops any new symptoms suggestive of hyperthyroidism Assessment & Plan (04/21/2022 1:54 PM NURSING UNIT COORDINATOR): Chronic problem, controlled on current Tapazole 5mg M/W/F. Last TFTs 12/2021. Will update today. Verified that she uses [employer]. Aware to check results/results letter in [employer]. Will contact by phone if needed. Will send Tapazole refills, once labs received, to [facility]. Assessment & Plan (01/04/2022 1:47 PM NURSING UNIT COORDINATOR): Lower Tapazole o 5 mg , 3 days a week, M-W and F Assessment & Plan (08/24/2021 3:03 PM CDT): Thyroid function tests requested. Will adjust dose of Tapazole accordingly Assessment & Plan (10/27/2020 2:29 PM CDT): TSH is stable Continue with Tapazole, 5 mg 4 days a week Assessment & Plan (06/23/2020 4:11 PM CDT): Stay on Tapazole 5 mg 4 day a week Recheck labs in 2 months. Follow up in 4 months. Assessment & Plan (12/24/2019 1:07 PM NURSING UNIT COORDINATOR): Lower Tapazole to 5 mg 5 days a week Recheck in 3 m Assessment & Plan (05/23/2019 2:54 PM CDT): Check TFT's Adjust dose of Methimazole as indicated Assessment & Plan (12/25/2018 1:50 PM NURSING UNIT COORDINATOR): I have recommended to stay off of the Tapazole due to the side effects (hand skin rash). Will recheck thyroid levels again in 2 months new The patient is advised to call the office in case she started experiencing symptoms of hyperthyroidism again. At that time will have to decide between radioactive iodine ablation or rechallenge it with Tapazole Assessment & Plan (09/25/2018 11:51 AM CDT): Check thyroid function tests. Adjust dose of Tapazole accordingly Assessment & Plan (03/27/2018 11:52 AM NURSING UNIT COORDINATOR): Lower Tapazole to 5 mg 4 days a wk. Recheck levels in 2m F/u in 6 m Assessment & Plan (12/26/2017 9:25 AM NURSING UNIT COORDINATOR): Lower Tapazole to 5 mg daily Recheck labs in 6 wks F/u in 3 m Assessment & Plan (10/24/2017 9:58 AM CDT): Start Tapazole, 15 mg daily Recheck levels in 4 wks Follow up in 2 months. Diarrhea 07/23/2017 Assessment & Plan (10/31/2017 6:37 AM CDT): Patient has been experiencing multiple watery stools since 06/08/2017. There is associated weight loss. Stool studies have been negative except for fecal leukocytes. Colonoscopy with random colon biopsies as well as terminal ileum biopsies were negative. Celiac panel negative. Prior TSH was very low but free T4 normal. The patient is on metformin but this is a longstanding medication. There has been no medication change to account for her symptoms. She denies ill contacts, antibiotic use, or travel history. Empiric trial of Flagyl was without benefit. I am recommending a 2 week treatment with Xifaxan. Repeat CT scan, EGD, and capsule study will be considered. I will talk to 1 of the laminator hand about the patient's thyroid labs. Assessment & Plan (07/23/2017 7:33 PM CDT): Patient has been experiencing constant, multiple, watery stools since June 08, 2017. Stool for C diff toxin and C&S were negative. CBC and CMP unremarkable. TSH was very low but free T4 normal. The patient is on metformin but this is a longstanding medication. There has been no medication change to account for her symptoms. She denies ill contacts, antibiotic use, or travel history. She is on prednisone; Enbrel was recently discontinued. I am recommending repeating TSH and free T4 as well as a celiac panel. Stool for fecal leukocytes and O&P will be checked. The patient may need another colonoscopy with random colon biopsies and terminal ileum intubation. Lymphedema of both lower extremities 05/08/2017 Assessment & Plan (05/08/2017 12:08 PM CDT): Patient has significant lymphedema both lower extremities. Without evidence of deep vein thrombosis. I would recommend she contact your office for medical workup she was advised this could represent heart lung liver, or kidney issues Trochanteric bursitis of left hip 05/08/2017 Assessment & Plan (05/08/2017 12:07 PM CDT): Cortisone injection was given through a sterile field in the left trochanteric region. She tolerated the procedure well. Majority of her pain seems radicular nature would recommend she get in to see Dr. 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 Overview (07/15/2016): Peripheral axonal neuropathy Assessment & Plan (08/25/2016 1:26 PM CDT): Poor control, pt notes Lyrica caused wt gain, blurred vision, Ruiz, fatigue, would like to D/c Muscle weakness 03/08/2016 Overview (05/26/2016): Muscle weakness Low back pain with sciatica 02/23/2016 Overview (05/27/2016): Lumbago with sciatica Pure hypercholesterolemia 12/23/2015 Overview (05/27/2016): PURE HYPERCHOLESTEROLEM History of spinal surgery 10/08/2015 Overview (05/26/2016): H/O Spinal surgery Gastroesophageal reflux disease 02/05/2015 Overview (05/26/2016): GERD Deep vein thrombosis (DVT) ([facility]) 04/15/2014 Overview (05/26/2016): DVT Pulmonary embolism 04/15/2014 Overview (05/26/2016): PE Hyperlipidemia 07/06/2013 Overview (05/26/2016): Hyperlipidemia Assessment & Plan (01/20/2022 2:22 PM NURSING UNIT COORDINATOR): Hold statin Assessment & Plan (08/25/2016 1:29 PM CDT): Lipid abnormalities are improving with treatment. Nutritional counseling was provided. Lipids will be reassessed 4mos. Low back pain 07/06/2013 Overview (05/25/2016): LUMBAGO Type 2 diabetes mellitus wit h hyperglycemia, without long-term current use of insulin 07/06/2013 Overview (05/27/2016): Diabetes mellitus Assessment & Plan (03/05/2024 4:11 PM NURSING UNIT COORDINATOR): Chronic, stay Importance of diet and exercise was discussed Continue Farxiga Assessment & Plan (04/27/2023 5:22 PM NURSING UNIT COORDINATOR): Chronic, well-controlled Diet and exercise Continue Farxiga Assessment & Plan (11/01/2022 1:51 PM CDT): Hba1c was Lab Results Component Value Date HGBA1C 7.1 11/01/2022 today, indicating suboptimal DM control Goal Hba1c and blood glucose explained Diet and exercise were advised Prevention and treatment of hyypoglcyemia were discussed with the patient Blood glucose monitoring : 1-2 x week Adjustment to medications: continue with Farxiga Assessment & Plan (04/21/2022 1:51 PM NURSING UNIT COORDINATOR): Chronic problem, improving with weight loss & watching intake. Continue Farxiga 10mg daily. UTD on DM eye exam. Will update labs today. Verified that she uses [employer]. Aware to check results/results letter in [employer]. Will contact by phone if needed. Discussed the need to strive for regular exercise (30min most days) and diet (get at least 4-5 servings of fruit and veggies daily, avoid processed foods, increase lean protein intake and decrease carb portions as well as fruit juices, regular soda & desserts). Watch carbs and simple sugars. Check the feet daily for skin breakdown and infection. Assessment & Plan (01/04/2022 1:46 PM NURSING UNIT COORDINATOR): Uncontrolled Pt to watch diet Start Farxiga Assessment & Plan (08/24/2021 3:05 PM CDT): Hba1c was Lab Results Component Value Date HGBA1C 7.2 08/24/2021 today, indicating suboptimal DM control Goal Hba1c and blood glucose explained Diet and exercise were advised Prevention and treatment of hyypoglcyemia were discussed with the patient Blood glucose monitoring : Not necessary Adjustment to medications: Will try Trulicity Samples were provided Assessment & Plan (03/23/2021 1:52 PM NURSING UNIT COORDINATOR): Hba1c was Lab Results Component Value Date HGBA1C 7.1 03/23/2021 today, indicating DM control Goal Hba1c and blood glucose explained Diet and exercise were advised Prevention and treatment of hyypoglcyemia were discussed with the patient Blood glucose monitoring : 1-2 x wk Adjustment to medications: off meds Assessment & Plan (10/27/2020 2:28 PM CDT): Hba1c was Lab Results Component Value Date HGBA1C 6.6 (H) 10/16/2020 today, indicating adequate DM control Goals blood sugars of 120-160 and Hba1c under 7 % was explained. 1800 calorie, consistent carb diet recommended, no more than 3-45 grams of carbs per meal, avoiding concentrated sweet drinks and rapid absorption carbs. 25-45 min daily aerobic and resistance exercise recommended Will start Ozempic, which can help with weight loss rx was sent. Assessment & Plan (06/23/2020 4:11 PM CDT): Hba1c was Lab Results Component Value Date HGBA1C 6.3 06/23/2020 today, indicating adequate DM control Goals blood sugars of 120-160 and Hba1c under 7 % was explained. 1800 calorie, consistent carb diet recommended, no more than 3-45 grams of carbs per meal, avoiding concentrated sweet drinks and rapid absorption carbs. 25-45 min daily aerobic and resistance exercise recommended Assessment & Plan (12/24/2019 1:09 PM NURSING UNIT COORDINATOR): Adequate glycemic control. Continue with Neurontin Assessment & Plan (12/25/2018 1:50 PM NURSING UNIT COORDINATOR): Continue working on diet and exercise Repeat A1c in 2 months Assessment & Plan (08/25/2016 1:28 PM CDT): Diabetes is improving with treatment. Continue current treatment regimen. Reminded to bring in blood sugar diary at next visit. Dietary recommendations for ADA diet. Diabetes will be reassessed 4mos. Hypertension associated with diabetes 06/21/2012 Overview (05/27/2016): Hypertension Assessment & Plan (11/01/2022 1:51 PM CDT): Chronic, well controled Continue current regimen with Lisinopril Assessment & Plan (04/21/2022 1:52 PM NURSING UNIT COORDINATOR): Chronic problem, controlled on current regimen of Lisinopril/hctz 20-12.5mg daily. No changes at this time. Will update labs. Verified that she uses [employer]. Aware to check results/results letter in [employer]. Will contact by phone if needed. Assessment & Plan (01/20/2022 2:06 PM NURSING UNIT COORDINATOR): Lab Results Component Value Date HGBA1C 7.7 01/04/2022 ON Farxiga per endo Assessment & Plan (05/23/2019 2:55 PM CDT): Goal blood pressure is less than 140/85 Low salt diet recommended Daily aerobic exercise Continue current meds, including THIERRY-I or ARB Assessment & Plan (03/30/2017 4:08 PM NURSING UNIT COORDINATOR): Goal blood pressure is less than 140/85 Low salt diet recommended Daily aerobic exercise Continue current meds, including THIERRY-I or ARB Assessment & Plan (08/25/2016 1:29 PM CDT): Hypertension is improving with treatment. Continue current treatment regimen. Dietary sodium restriction. Weight loss. Blood pressure will be reassessed at the next regular appointment. Psoriasis with arthropathy 06/21/2012 Overview (05/26/2016): Psoriatic arthritis Toxic goiter 06/21/2012 Overview (05/27/2016): Goiter Assessment & Plan (11/01/2022 1:53 PM CDT): Chronic, well controlled Continue tapazole 5 mg 2 x wk Update TFTs Assessment & Plan (03/23/2021 1:53 PM NURSING UNIT COORDINATOR): Thyroid function tests requested. Will adjust dose of Tapazole accordingly Assessment & Plan (06/23/2020 4:12 PM CDT): Thyroid ultrasound performed today See report Pure hyperglyceridemia 01/31/2012 Overview (05/25/2016): PURE HYPERGLYCERIDEMIA Neuropathic pain Resolved Problems Problem Noted Date Diagnosed Date Resolved Date Morbid obesity with BMI of 40.0-44.9, adult 05/08/2017 04/20/2022 Assessment & Plan (01/20/2022 2:05 PM NURSING UNIT COORDINATOR): BMI Follow-up includes: nutrition counseling. Assessment & Plan (05/08/2017 12:08 PM CDT): The patient's current weight provides with a BMI over 41. She has work on a graduated low-impact exercise program in conjunction with proper dieting Morbid obesity ([facility]) 12/23/201502/2021 Overview (05/25/2016): MORBID OBESITY Type 2 diabetes mellitus 02/19/2014 Overview (05/28/2016): DMII WO CMP NT ST UNCNTR Assessment & Plan (05/23/2019 2:54 PM CDT): Off of meds Diet and exercise Check hba1c Assessment & Plan (03/30/2017 4:08 PM NURSING UNIT COORDINATOR): Hba1c was 5.8 today, indicating adequate DM control 1800 calorie, consistent carb diet recommended 30 min daily aerobic and resistance exercise recommended Prevention and treatment of hyypoglcyemia discussed. Blood glucose monitoring with fingers sticks 1-2 x day . Foot care was discussed. Nontoxic uninodular goiter 10/17/2011 0 06/23/2020 Overview (05/26/2016): NONTOX UNINODULAR GOITER Assessment & Plan (12/25/2018 1:50 PM NURSING UNIT COORDINATOR): The patient had FNA biopsy in the past which was negative Will repeat ultrasound next office visit Encounters Date Type Department Care Team Description 03/20/2024 12:53 PM NURSING UNIT COORDINATOR - 03/20/2024 11:59 PM NURSING UNIT COORDINATOR Hospital Encounter [address] [address] Fatigue; Screening for diabetes mellitus (DM); Vitamin D deficiency Discharge Disposition: Discharge to home or self care 03/20/2024 12:00 PM NURSING UNIT COORDINATOR Lab [facility] Outpatient Lab at [address] [phone] Fatigue (Primary Dx); Screening for diabetes mellitus (DM); Vitamin D deficiency 03/08/2024 Telephone [facility] [address] [address] Jeannine Gorman MD 03/05/2024 3:10 PM NURSING UNIT COORDINATOR Lab [address] [address] Hyperthyroidism 03/05/2024 2:30 PM NURSING UNIT COORDINATOR Office Visit [facility] [address] [address] Jeannine Gorman MD Type 2 diabetes mellitus with hyperglycemia, without long-term current use of insulin (HCC) (Primary Dx); Hyperthyroidism; Chronic wound 03/05/2024 11:51 AM NURSING UNIT COORDINATOR - 03/05/2024 11:59 PM NURSING UNIT COORDINATOR Hospital Encounter [facility] and Radiology [address] [place] [phone] Encounter for screening mammogram for malignant neoplasm of breast Discharge Disposition: Discharge to home or self care 03/01/2024 Telephone [facility] at [address] [address] Dora Arnold MD Medical Question/Miscellaneous 02/06/2024 11:15 AM NURSING UNIT COORDINATOR Office Visit [facility] [address] [place] [address] [address] [address] Azam Whitt II, MD Type 2 diabetes mellitus with diabetic polyneuropathy, unspecified whether mcc insulin use (HCC) (Primary Dx); Neuropathic pain of both feet 01/24/2024 1:30 PM NURSING UNIT COORDINATOR Office Visit [facility] at [address] [place] [phone] Dora Arnold MD Flu vaccine need (Primary Dx); Encounter for Medicare annual wellness exam; Hypertension associated with diabetes (HCC); Type 2 diabetes mellitus with diabetic polyneuropathy, without long-term current use of insulin (HCC); Hyperlipidemia associated with type 2 diabetes mellitus (HCC); Statin intolerance; Encounter for screening mammogram for malignant neoplasm of breast; Cervical spinal stenosis; Essential tremor; Lumbosacral spondylosis without myelopathy; Psoriasis with arthropathy (HCC) 12/21/2023 Telephone [facility] Diabetes and Endocrinology [facility] [place] [address] Cori West, JORGE LUIS Appointment from Last 3 Months Immunizations Name Administration Dates Next Due Influenza, Quadrivalent, Hig h Dose, Preservative Free, Intrr 12/06/2019 Influenza, Quadrivalent, Spl it, Preservative Free, Intramuscular 11/11/2014,11/24/2012 Influenza, Split 12/03/2009 Influenza, Trivalent, Adjuva nted, Intramuscular 11/22/2018 Influenza, Trivalent, High D ose, Split, Preservative Free, Intramuscular 11/16/2021,11/08/2017,11/24/2016,11/22,11/20/2013 Influenza, Trivalent, IM (MDV) 3,11/22/2011,11/26/2010,10/30 Influenza, Unspecified 11/13/2023,11/16/2022,07/2016 Pfizer SARS-CoV-2 Monovalent Vaccination (12+ Yrs) PURPLE 11/16/2021,04/05/2021,10/30/2020,05/05,04/14/2020 Pfizer Sars-Cov-2 Bivalent V accination (12+ YRS) 11/13/2023,11/16/2022 Pneumococcal Conjugate PCV 13 12/23/2015 Pneumococcal Polysaccharide PPV23 12/30/2016,11/2010 Tdap 10/07/2020,05/18/2010 ZOSTER LIVE 09/12/2012 ZOSTER Recombinant 10/14/2019,04/11/2019 Surgical History Surgery Date Site/Laterality Comments APPENDECTOMY Appendectomy CHOLECYSTECTOMY Cholecystectomy OTHER SURGICAL HISTORY bilat knee surgery OTHER SURGICAL HISTORY left PKR OTHER SURGICAL HISTORY DandCx2 ROTATOR CUFF REPAIR Rotator cuff repair OTHER SURGICAL HISTORY Surgery, thoracic spine OTHER SURGICAL HISTORY Fusion of great toe joint JOINT REPLACEMENT Bilateral knees ARTHROGRAM KNEE Bilateral BACK SURGERY COLONOSCOPY 2014 doing because of acute changes, unable to keep any food down for 30 days HYSTERECTOMY Hysterectomy- SHOULDER SURGERY Right rotator cuff SKIN CANCER EXCISION 04/12/2022 N/A Nose Medical History Medical History Date Comments Hypertension Hypertension Hyperlipidemia Hyperlipidemia Hx Other Medical Morbid obesity Hx Other Medical Lt great toe di slocation; Comments: HONEY 03/24/2015 - Peripheral neuropathy Spinal stenosis Irritable bowel syndrome Chronic pain disorder Type 2 diabetes mellitus (HCC) t ype 2 Lumbosacral disc disease GERD (gastroesophageal reflux disease) Headache Joint pain Low back pain Mid back pain Neck pain Arthritis osteoarthritis Thyroid disease Traumatic injury 2016 fall Kidney stones Family History Medical History Relation Name Comments COPD Father COPD; Cause of : COPD Alzheimer's disease Mother Alzheime r's Disease; Breast cancer Mother Diabetes Mother Diabetes mellit us; Hyperlipidemia Mother Hyperlipidemi a; Hypertension Mother Hypertension; Diabetes type II Other Family hist ory of Diabetes -Type II; Prostate cancer Son BRCA 1 Neg Hx BRCA 2 Neg Hx Endometrial cancer Neg Hx Ovarian cancer Neg Hx Pancreatic cancer Neg Hx Thyroid cancer Neg Hx Relation Name Status Comments Father (Age 80) Mother (Age 93) 8 age 83 b ca Other Son Social History Tobacco Use Types Packs/Day Years Used Date Smoking Tobacco: Never Smokeless Tobacco: Never Tobacco Cessation:Counseling Given: Not Answered Alcohol Use Standard Drinks/Week Comments No 0 [...] on file Legal Sex Female 4:08 PM NURSING UNIT COORDINATOR Gender Identity Female 08/24/2021 12:52 PM CDT Sexual Orientation Straight 03/05/2024 2: 15 PM NURSING UNIT COORDINATOR Obstetrics History Para Term AB IAB SAB Ectopic Multiple Livin g Live Births 2 2 2 Date Outcome GA Total Labor Labor/2nd/3rd Weight Sex Type Anes PTL Jeannine A1 A5 Name Clin Term Term Last Filed Vital Signs Vital Sign Reading Time Taken Comments Blood Pressure 100/60 03/05/2024 2:25 PM NURSING UNIT COORDINATOR Pulse 76 03/05/2024 2:25 PM NURSING UNIT COORDINATOR Temperature 36.3 ??C (97.3 ??F) 04/19/2023 1:22 PM CS T Respiratory Rate 18 03/05/2024 2:25 PM NURSING UNIT COORDINATOR Oxygen Saturation 96% 02/06/2024 10:52 AM NURSING UNIT COORDINATOR Inhaled Oxygen Concentration - - Weight 103.9 kg (229 lb) 03/05/2024 2:25 PM NURSING UNIT COORDINATOR Height 162.6 cm (5' 4 ) 03/05/2024 2:25 PM NURSING UNIT COORDINATOR Body Mass Index 39.31 03/05/2024 2:25 PM NURSING UNIT COORDINATOR Plan of Treatment Scheduled Procedures Name Priority Associated Diagnoses Date/Ti me INJECTION EPIDURAL LUMBAR/CA UDAL 1 LEVEL PAIN PUMP TRIAL W IMAGING 35005 Lumbar radiculopathy Health Maintenance Due Date Last Done Comments Hepatitis B Screening 05/09/1963 Covid-19 Vaccine (2023- 5 season) 2024 11/13/2023, 11/16/2022, 11/16/2021, Additional history exists Albumin Creatinine Ratio, Urine 09/14/2024 09/15/2023, 04/14/2023, 12/16/2022, Additional history exists Lipid Panel 09/14/2024 09/15/2023, 03/24, 12/16/2022, Additional history exists Hemoglobin A1C 09/17/2024 03/20/2024, 02/20, 09/15/2023, Additional history exists Dilated Eye Exam 11/13/2024 11/14/2023, , 08/10/2021, Additional history exists Foot Exam 01/23/2025 01/24/2024, 05/2023, 04/21/2022, Additional history exists Well Visit 65+ 01/23/2025 01/24/2024, 05/2023, 08/09/2022, Additional history exists Osteoporosis Screening-Bone Density Scan 02/02/2025 02/02/2023, 11/02/2020, 05/03/2018, Additional history exists Depression Screening 03/05/2025 03/05/2024, 01/24/2024, 12/14/2022, Additional history exists Fall Risk Assessment 03/05/2025 03/05/2024, 02/06/2024, 01/24/2024, Additional history exists eGFR 03/20/2025 03/20/2024, 08/21, 04/14/2023, Additional history exists DTaP/Tdap/Td Vaccine (3 - Td or Tdap) 10/07/2030 10/07/2020, 05/18/2010 Pneumococcal vaccine 65+ Completed 017, 12/23/2015, 12/30/2010 Colon Cancer Screening-CT Colonography Discontinued 07/14/2017 Colon Cancer Screening-Colonoscopy Discontinued 07/14/2017 Colon Cancer Screening-DNA Stool Discontinued 07/15/19 18 Colon Cancer Screening-FIT Discontinued 07/14/2017 Colon Cancer Screening-FOBT Discontinued 07/14/2017 Colon Cancer Screening-Sigmoidoscopy Discontinued 07/14/2017 Colorectal Cancer Screening Discontinued Zoster Vaccine Completed 10/14/2019, 03/24, 09/12/2012 Hepatitis C Screening Completed 06/05/2020 Influenza Vaccine Completed 11/13/2023, , 11/16/2021, Additional history exists Breast Cancer Screening-Mammogram Discontinued 03/05/2024, 02/02/2023, 01/20/2022, Additional history exists Procedures Procedure Name Priority Date/Time Associated Diagnosis Comments CLINICAL PATHOLOGY REPORT Routine 03/20/2024 12:53 PM NURSING UNIT COORDINATOR EGFR Routine 03/20/2024 12:53 PM NURSING UNIT COORDINATOR Fatigue Screening for diabetes mellitus (DM) DIFFERENTIAL AUTO Routine 03/20/2024 12: 53 PM NURSING UNIT COORDINATOR Fatigue Screening for diabetes mellitus (DM) COMPREHENSIVE METABOLIC PANEL Routine 03/20/2024 12:53 PM NURSING UNIT COORDINATOR Fatigue Screening for diabetes mellitus (DM) CBC WITH AUTO DIFFERENTIAL Routine 03/20/2024 12:53 PM NURSING UNIT COORDINATOR Fatigue Screening for diabetes mellitus (DM) VITAMIN B12 Routine 03/20/2024 12:53 PM NURSING UNIT COORDINATOR Fatigue Screening for diabetes mellitus (DM) FOLATE Routine 03/20/2024 12:53 PM NURSING UNIT COORDINATOR Fatigue Screening for diabetes mellitus (DM) RHEUMATOID FACTOR Routine 03/20/2024 12: 53 PM NURSING UNIT COORDINATOR Fatigue Screening for diabetes mellitus (DM) CYCLIC CITRUL PEPTIDE ANTIBODY, IGG Routine 03/20/2024 12:53 PM NURSING UNIT COORDINATOR Fatigue Screening for diabetes mellitus (DM) VITAMIN D 25 HYDROXY Routine 03/20/2024 12:53 PM NURSING UNIT COORDINATOR Fatigue Screening for diabetes mellitus (DM) Vitamin D deficiency T4, FREE Routine 03/20/2024 12:53 PM NURSING UNIT COORDINATOR Fatigue Screening for diabetes mellitus (DM) FERRITIN Routine 03/20/2024 12:53 PM NURSING UNIT COORDINATOR Fatigue Screening for diabetes mellitus (DM) CREATINE KINASE (CK), TOTAL Routine 03/20/2024 12:53 PM NURSING UNIT COORDINATOR Fatigue Screening for diabetes mellitus (DM) URIC ACID Routine 03/20/2024 12:53 PM NURSING UNIT COORDINATOR Fatigue Screening for diabetes mellitus (DM) ERYTHROCYTE SEDIMENTATION RATE Routine 03/20/2024 12:53 PM NURSING UNIT COORDINATOR Fatigue Screening for diabetes mellitus (DM) CRP (ACUTE PHASE) Routine 03/20/2024 12: 53 PM NURSING UNIT COORDINATOR Fatigue Screening for diabetes mellitus (DM) MAGNESIUM Routine 03/20/2024 12:53 PM NURSING UNIT COORDINATOR Fatigue Screening for diabetes mellitus (DM) HEMOGLOBIN A1C Routine 03/20/2024 12:53 PM NURSING UNIT COORDINATOR Fatigue Screening for diabetes mellitus (DM) T3, FREE Routine 03/05/2024 3:24 PM NURSING UNIT COORDINATOR Hyperthyroidism T4, FREE Routine 03/05/2024 3:24 PM NURSING UNIT COORDINATOR Hyperthyroidism TSH Routine 03/05/2024 3:24 PM NURSING UNIT COORDINATOR Hyperthyroidism POCT GLUCOSE Routine 03/05/2024 2:28 PM NURSING UNIT COORDINATOR Type 2 diabetes mellitus with hyperglycemia, without long-term current use of insulin (HCC) POCT HEMOGLOBIN A1C Routine 03/05/2024 2 :28 PM NURSING UNIT COORDINATOR Type 2 diabetes mellitus with hyperglycemia, without long-term current use of insulin (HCC) SCREENING MAMMOGRAM BILATERAL W RAUL Schedule Routine, Read Routine (OP Routine) 03/05/2024 12:25 PM NURSING UNIT COORDINATOR Encounter for screening mammogram for malignant neoplasm of breast HM DIABETES EYE EXAM Routine 11/14/2023 10:03 AM CDT LIPID PANEL Routine 09/15/2023 9:30 AM CDT Hypertension associated with diabetes (HCC) Type 2 diabetes mellitus with diabetic polyneuropathy, without long-term current use of insulin (CMS/HCC) (HCC) ALBUMIN CREATININE RATIO, URINE Routine 09/15/2023 9:30 AM CDT Hypertension associated with diabetes (HCC) Type 2 diabetes mellitus with diabetic polyneuropathy, without long-term current use of insulin (CMS/HCC) (HCC) DEXA AXIAL SKELETON BONE DENSITY 1 OR MORE SITES Schedule Routine, Read Routine (OP Routine) 02/02/2023 2:40 PM NURSING UNIT COORDINATOR Postmenopausal HEPATITIS C ANTIBODY Routine 06/05/2020 10:58 AM CDT COLONOSCOPY 07/14/2017 1:06 PM CDT from Last 3 Months or Most Recently Relevant to Health Maintenance Results * Clinical pathology report (03/20/2024 12:53 PM NURSING UNIT COORDINATOR) Miscellaneous 03/20/2024 12: 53 PM NURSING UNIT COORDINATOR 03/21/2024 8:20 AM NURSING UNIT COORDINATOR Narrative 03/21/2024 4:23 PM NURSING UNIT COORDINATOR EPIC results best viewed via link to PDF [facility] Department of Pathology [address] [place] [id number] Final Report Note to Patients: This [...] explain the details. Patient Name: ? JANE WALKER Address: ??[address] [place] [address] ??[address] Gender: ??F : ??1945 (Age: 78) Service: ?? Location: ?? Hospital #: ??[id number] Patient Type: ?? SPECIMEN Taken: ??03/20/2024 Received: ?? 03/21/2024 Accessioned: ??03/21/2024 Physician(s): ??Kimberli Golria M.D. Specimen(s) Received A: Blood (serum) Serum [...] determined by the Surgical Pathology Department at [facility] as part of an ongoing senior software quality engineer program and in compliance with federally mandated [...] characteristics determined by the Surgical Pathology Department [facility]. ??It has not been cleared or approved by the U. S. Food and Drug Administration. REPORT IMAGES AND SCANNED DOCUMENTS, IF INCLUDED, ONLY VIEWABLE IN PDF VERSION OF REPORTe o us Kimberli Gloria MD LAB PATHOLOGY ORDERABLES Final R esult * eGFR (03/20/2024 12:53 PM NURSING UNIT COORDINATOR) eGFR 65 >=60 mL/min/1. 73 m2 Comment: [...] of Race in Diagnosing Kidney Disease, JASN 202). The CKD-EPI equation should not be used for patients with unstable renal function and has not been validated in children and those over 70. Current interpretive data was last reviewed 2020. Blood 03/20/2024 12:5 3 PM NURSING UNIT COORDINATOR 03/20/2024 10:37 PM NURSING UNIT COORDINATOR us Kimberli Gloria MD LAB BLOOD ORDERABLES Final Resul t [facility] [id number] [address] Department [place] [address] * Differential, auto (03/20/2024 12:53 PM NURSING UNIT COORDINATOR) Neutrophil abs 4.3 1.5 - 6.5 K/cumm Imm gran abs 0.0 0.0 - 0.1 K/cumm [facility] Lymphocyte abs 1.6 0.8 - 3.3 K/cumm [facility] Monocyte abs 0.5 0.2 - 0.8 K/cumm [facility] Eosinophil abs 0.4 0.0 - 0.5 K/cumm [facility] Basophil abs 0.1 0.0 - 0.1 K/cumm [facility] Neutrophil pct 62.9 % [facility] Comment: Interpretive Data Percent cell count reference ranges are not reported, since discordance with absolute values may lead to misinterpretation of CBC data. Current Interpretive Data was last revised on 2017. Imm gran pct 0.4 % [facility] Comment: Interpretive Data Percent cell count reference ranges are not reported, since discordance with absolute values may lead to misinterpretation of CBC data. Current Interpretive Data was last revised on 2017. Lymphocyte pct 23.1 % [facility] Comment: Interpretive Data Percent cell count reference ranges are not reported, since discordance with absolute values may lead to misinterpretation of CBC data. Current Interpretive Data was last revised on 2017. Monocyte pct 7.4 % [facility] Comment: Interpretive Data Percent cell count reference ranges are not reported, since discordance with absolute values may lead to misinterpretation of CBC data. Current Interpretive Data was last revised on 2017. Eosinophil pct 5.2 % [facility] Comment: Interpretive Data Percent cell count reference ranges are not reported, since discordance with absolute values may lead to misinterpretation of CBC data. Current Interpretive Data was last revised on 2017. Basophil pct 1.0 % [facility] Comment: Interpretive Data Percent cell count reference ranges are not reported, since discordance with absolute values may lead to misinterpretation of CBC data. Current Interpretive Data was last revised on 2017. Blood 03/20/2024 12:5 3 PM NURSING UNIT COORDINATOR 03/20/2024 10:17 PM NURSING UNIT COORDINATOR us Kimberli Gloria MD LAB BLOOD ORDERABLES Final Resul t [facility] [address] Department [place] [address] * (ABNORMAL) CBC with auto differential (03/20/2024 12:53 PM NURSING UNIT COORDINATOR) WBC 6.9 3.8 - 9.9 K/cumm Hgb 15.6(H) 11.9 - 15.5 g/dL [facility] Hct 50.1(H) 35.6 - 45.5 % [facility] Plt 287 150 - 400 K/cumm [facility] MPV 12.4(H) 9.1 - 12.3 fL [facility] RBC 5.24(H) 3.90 - 5.20 M/cumm [facility] MCV 95.6 81.3 - 96.4 fL [facility] MCH 29.8 27.1 - 33.3 pg [facility] MCHC 31.1(L) 32.3 - 35.7 g/dL [facility] CV 13.7 11.1 - 14.9 % [facility] SD 48.2(H) 35.7 - 48.1 fL [facility] NRBC abs 0.00 0.00 - 0.01 K/cumm [facility] Blood 03/20/2024 12:5 3 PM NURSING UNIT COORDINATOR 03/20/2024 10:17 PM NURSING UNIT COORDINATOR Narrative [facility] - 03/20/2024 10:53 PM NURSING UNIT COORDINATOR FAX RESULT TO [phone] KIMBERLI GLORIA Kimberli Gloria MD LAB BLOOD ORDERABLES Final Resul t Performing Organization Address [facility] Co de Phone Number ANDREA SANDRA [address] [address] Department [address] [place] [address] * Cyclic citrul peptide antibody, IgG (03/20/2024 12:53 PM NURSING UNIT COORDINATOR) Pathologist [facility] CCP Ab <0.5 <=2.9 units/mL Comment: Interpretive data Negative: <3 units/mL Positive: > or equal to 3 units/mL Current interpretive data was last revised on 2016. Testing performed by: [facility], [address] [place]., [address] Blood 03/20/2024 12:5 3 PM NURSING UNIT COORDINATOR 03/21/2024 9:56 AM NURSING UNIT COORDINATOR Narrative [facility] - 03/21/2024 12:27 PM NURSING UNIT COORDINATOR FAX RESULT TO [phone] KIMBERLI GLORIA Kimberli Gloria MD LAB BLOOD ORDERABLES Final Resul t [facility] SANDRA [address] [address] Department of [address] [place], [place] [id number] * Vitamin D 25 hydroxy (03/20/2024 12:53 PM NURSING UNIT COORDINATOR) Vitamin D 25-OH 51 30 - 80 ng/mL Blood 03/20/2024 12:5 3 PM NURSING UNIT COORDINATOR 03/20/2024 10:17 PM NURSING UNIT COORDINATOR Narrative [facility] - 03/20/2024 11:19 PM NURSING UNIT COORDINATOR FAX RESULT TO [phone] KIMBERLI GLORIA us Kimberli Gloria MD LAB BLOOD ORDERABLES Final Resul t Performing Organization Address [facility] Co de Phone Number ANDREA [address] [address] [facility] [address] [place] [address] * Erythrocyte sedimentation rate (03/20/2024 12:53 PM NURSING UNIT COORDINATOR) [facility] Erythrocyte sedimentation rate 5 1 - 30 mm/hr Blood (Blood, Venous) 03/20/2024 12:53 PM NURSING UNIT COORDINATOR 03/20/2024 10:17 PM NURSING UNIT COORDINATOR Narrative [facility] - 03/21/2024 12:50 AM NURSING UNIT COORDINATOR FAX RESULT TO [phone] AMCRISPIN GLORIA us Kimberli Gloria MD LAB BLOOD ORDERABLES Final Resul t Performing Organization Address [facility] de Phone Number AGUSTOPHOEBE [address] [facility] [address] [place] [address] * Rheumatoid factor (03/20/2024 12:53 PM NURSING UNIT COORDINATOR) [facility] Rheumatoid factor, quant <10 <=15 IUnits/mL Blood (Blood, Venous) 03/20/2024 12:53 PM NURSING UNIT COORDINATOR 03/20/2024 10:17 PM NURSING UNIT COORDINATOR Narrative [facility] - 03/20/2024 11:30 PM NURSING UNIT COORDINATOR FAX RESULT TO [phone] AMCRISPIN GLORIA us Kimberli Gloria MD LAB BLOOD ORDERABLES Final Resul t Performing Organization Address [facility] Co de Phone Number AGUSTOPHOEBE [address] [address] Department [address] [place] [address] * CRP (acute phase) (03/20/2024 12:53 PM NURSING UNIT COORDINATOR) CRP 3.2 <=10.0 mg/L Blood (Blood, Venous) 03/20/2024 12:53 PM NURSING UNIT COORDINATOR 03/20/2024 10:17 PM NURSING UNIT COORDINATOR Narrative ANDREA - 03/20/2024 11:12 PM NURSING UNIT COORDINATOR FAX RESULT TO [phone] KIMBERLI GLORIA us Kimberli Gloria MD LAB BLOOD ORDERABLES Final Resul t Performing Organization Address [facility] Co de Phone Number AGUSTOPHOEBE [address] [address] Department [address] [place] [address] * Uric acid (03/20/2024 12:53 PM NURSING UNIT COORDINATOR) [facility] Uric acid 5.4 2.5 - 7.0 mg/dL Blood (Blood, Venous) 03/20/2024 12:53 PM NURSING UNIT COORDINATOR 03/20/2024 10:17 PM NURSING UNIT COORDINATOR Narrative [facility] - 03/20/2024 11:29 PM NURSING UNIT COORDINATOR FAX RESULT TO [phone] KIMBERLI GLORIA us Kimberli Gloria MD LAB BLOOD ORDERABLES Final Resul t Performing Organization Address [facility] de Phone Number AGUSTOPOHEBE [address] [address] Department [address] [place] [address] * (ABNORMAL) T4, free (03/20/2024 12:53 PM NURSING UNIT COORDINATOR) Pathologist [facility] Free T4 0.88(L) 0.90 - 1.70 ng/dL Blood (Blood, Venous) 03/20/2024 12:53 PM NURSING UNIT COORDINATOR 03/20/2024 10:17 PM NURSING UNIT COORDINATOR Narrative [facility] - 03/20/2024 11:11 PM NURSING UNIT COORDINATOR FAX RESULT TO [phone] KIMBERLI GLORIA us Kimberli Gloria MD LAB BLOOD ORDERABLES Final Resul t Performing Organization Address [facility] Co de Phone Number ANDREA [address] [address] Department of [address] [place] [address] * Magnesium (03/20/2024 12:53 PM NURSING UNIT COORDINATOR) [facility] Magnesium 2.1 1.4 - 2.5 mg/dL Blood (Blood, Venous) 03/20/2024 12:53 PM NURSING UNIT COORDINATOR 03/20/2024 10:17 PM NURSING UNIT COORDINATOR Narrative ANDREA - 03/20/2024 11:11 PM NURSING UNIT COORDINATOR FAX RESULT TO [phone] KIMBERLI GLORIA Kimberli Gloria MD LAB BLOOD ORDERABLES Final Resul t Performing Organization Address [facility] Co de Phone Number ANDREA [address] [address] [facility] [address] [place] [address] * (ABNORMAL) Hemoglobin A1c (03/20/2024 12:53 PM NURSING UNIT COORDINATOR) [facility] Hgb A1C 7.1(H) 4.0 - 5.6 % Estimated Average Glucose 157 mg/dL ANDREA FLORES Comment: The ADA recommends reporting an estimated Average Glucose (eAG) with all Hemoglobin A1c results using the equation derived from a study of 507 normal and diabetic adults. ??Minority populations were underrepresented and children were not included. ?? (Diabetes Care 31:6954-0154, 2008). ??The eAG is not equivalent to a fasting glucose. Blood (Blood, Venous) 03/20/2024 12:53 PM NURSING UNIT COORDINATOR 03/20/2024 10:17 PM NURSING UNIT COORDINATOR Narrative ANDREA - 03/20/2024 11:04 PM NURSING UNIT COORDINATOR FAX RESULT TO [phone] KIMBERLI GLORIA Kimberli Gloria MD LAB BLOOD ORDERABLES Final Resul t Performing Organization Address [facility]/ZIP Co de Phone Number ANDREA [address] [address] [facility] [address] [place] [address] * Folate (03/20/2024 12:53 PM NURSING UNIT COORDINATOR) [facility] Folic acid >20.0 >=5.0 ng/mL Comment:Hemolysis present. R esults may be affected. Blood 03/20/2024 12:5 3 PM NURSING UNIT COORDINATOR 03/20/2024 10:17 PM NURSING UNIT COORDINATOR us Kimberli Gloria MD LAB BLOOD ORDERABLES Final Resul t Performing Organization Address [facility] de Phone Number ANDREA [address] [address] Department [address] [place] [address] * Ferritin (03/20/2024 12:53 PM NURSING UNIT COORDINATOR) Pathologist [facility] Ferritin 150 15 - 150 ng/mL Blood (Blood, Venous) 03/20/2024 12:53 PM NURSING UNIT COORDINATOR 03/20/2024 10:17 PM NURSING UNIT COORDINATOR Narrative [facility] 03/20/2024 11:11 PM NURSING UNIT COORDINATOR FAX RESULT TO [phone] KIMBERLI GLORIA us Kimberli Gloria MD LAB BLOOD ORDERABLES Final Resul t Performing Organization Address [facility] de Phone Number ANDREA [address] [address] Department of [address] [place] [address] * Vitamin B12 (03/20/2024 12:53 PM NURSING UNIT COORDINATOR) [facility] Vitamin B12 450 230 - 1,250 pg/mL Blood (Blood, Venous) 03/20/2024 12:53 PM NURSING UNIT COORDINATOR 03/20/2024 10:17 PM NURSING UNIT COORDINATOR Narrative [facility] 03/20/2024 11:11 PM NURSING UNIT COORDINATOR FAX RESULT TO [phone] KIMBERLI GLORIA us Kimberli Gloria MD LAB BLOOD ORDERABLES Final Resul t Performing Organization Address [facility] de Phone Number AGUSTOPHOEBE [address] [address] Department [address] [place] [address] * (ABNORMAL) Creatine kinase (CK), total (03/20/2024 12:53 PM NURSING UNIT COORDINATOR) Pathologist [facility] CK 25(L) 30 - 200 Units/L Blood (Blood, Venous) 03/20/2024 12:53 PM NURSING UNIT COORDINATOR 03/20/2024 10:17 PM NURSING UNIT COORDINATOR Narrative [facility] - 03/20/2024 11:11 PM NURSING UNIT COORDINATOR FAX RESULT TO [phone] KIMBERLI GLORIA Kimberli Gloria MD LAB BLOOD ORDERABLES Final Resul t [facility] [address] [address] Department [place] [address] * (ABNORMAL) Comprehensive metabolic panel (03/20/2024 12:53 PM NURSING UNIT COORDINATOR) Sodium 138 135 - 145 mmol/L Potassium, pl 4.3 3.3 - 4.9 mmol/L [facility] Chloride 99 97 - 110 mmol/L [facility] CO2 28 22 - 32 mmol/L [facility] Anion gap 11 2 - 15 mmol/L [facility] BUN 27(H) 6 - 25 mg/dL [facility] Creatinine 0.91 0.60 - 1.10 mg/dL [facility] Glucose 183 70 - 199 mg/dL [facility] Comment: Interpretive Data Fasting glucose >/= 126 [...] classification and Diagnosis of Diabetes Diabetes Care 2021; 46: S19-S40. Current interpretive data was last [...] CH Blood (Blood, Venous) 03/20/2024 12:53 PM NURSING UNIT COORDINATOR 03/20/2024 10:17 PM NURSING UNIT COORDINATOR Narrative ANDREA - 03/20/2024 11:11 PM NURSING UNIT COORDINATOR FAX RESULT TO [phone] KIMBERLI GLORIA us Kimberli Gloria MD LAB BLOOD ORDERABLES Final Resul t Performing Organization Address [facility] de Phone Number [facility] [address] [address] [facility] [address] [place] [address] * T3, free (03/05/2024 3:24 PM NURSING UNIT COORDINATOR) Free T3 2.7 2.0 - 4.4 pg/mL Blood 03/05/2024 3:24 PM NURSING UNIT COORDINATOR 03/05/2024 8:29 PM NURSING UNIT COORDINATOR Result Jessica Gorman MD LAB BLOOD ORDERABLES Final Resul t Performing Organization Address [facility][1] de Phone Number [facility] [address] [address] [facility] [address] [place] [address] * TSH (03/05/2024 3:24 PM NURSING UNIT COORDINATOR) Thyroid Stimulating Hormone 1.74 0.30 - 4.20 mcIUnit/mL Blood 03/05/2024 3:24 PM NURSING UNIT COORDINATOR 03/05/2024 8:29 PM NURSING UNIT COORDINATOR Result [facility] us Jeannine Gorman MD LAB BLOOD ORDERABLES Final Resul t Performing Organization Address [facility] de Phone Number [facility] [address] [address] [facility] [address] [place] [address] * (ABNORMAL) T4, free (03/05/2024 3:24 PM NURSING UNIT COORDINATOR) Free T4 0.83(L) 0.90 - 1.70 ng/dL Blood 03/05/2024 3:24 PM NURSING UNIT COORDINATOR 03/05/2024 8:29 PM NURSING UNIT COORDINATOR us Jeannine Gorman MD LAB BLOOD ORDERABLES Final Resul t [facility] FLORES [address] [place] [address] * (ABNORMAL) POCT hemoglobin A1c (03/05/2024 2:28 PM NURSING UNIT COORDINATOR) Hemoglobin A1C, POC 7.4 4.0 - 5.6 % Comment:None Capillary blood 03/05/2024 2 :28 PM NURSING UNIT COORDINATOR Result [facility] Jeannine Gorman MD POINT OF CARE TEST ORDERABLES Fi nal Result * (ABNORMAL) POCT glucose (03/05/2024 2:28 PM NURSING UNIT COORDINATOR) Glucose Blood, POC 152 mg/dL Comment:None Blood 03/05/2024 2:28 PM NURSING UNIT COORDINATOR Result [facility] Jeannine Gorman MD POINT OF CARE TEST ORDERABLES Fi nal Result * Screening Mammogram Bilateral W Raul (03/05/2024 12:25 PM NURSING UNIT COORDINATOR) Anatomical Region Laterality Modality Breast Bilateral Mammography 03/05/2024 2:14 PM NURSING UNIT COORDINATOR Impressions 03/05/2024 2:14 PM NURSING UNIT COORDINATOR No evidence of malignancy in either breast. FINAL ASSESSMENT: BI-RADS Category 1: Negative. RECOMMENDATION: Recommend return for annual screening mammogram in 12 months. ?? Electronically signed by: JAYNE MOLINA MD Narrative 03/05/2024 2:14 PM NURSING UNIT COORDINATOR EXAMINATION: BILATERAL SCREENING MAMMOGRAM COMPARISON: All prior mammograms dating back to 2019. TECHNIQUE: Full-field 2D and digital breast tomosynthesis (DBT) images were obtained. CAD was utilized. BREAST PARENCHYMAL COMPOSITION: ??There are scattered areas of fibroglandular density. FINDINGS: There is no suspicious mass, calcification, or distortion in either breast. Result [facility] Dora Arnold MD IMG MAMMO PROCEDURES Final Result * HM DIABETES EYE EXAM (11/14/2023 10:03 AM CDT) Historical Provider HEALTH MAINTENANCE Edited Result - Final * Albumin Creatinine Ratio, Urine (09/15/2023 9:30 AM CDT) Albumin Ur <12.0 mg/L Comment: Interpretive Data No reference range established. Current interpretive data was last revised 2018. Creatinine Ur 52.6 mg/dL ANDREA Comment: Interpretive Data No reference range established. Current interpretive data was last revised 2018. Albumin Creatinine Ratio, Ur <23 1 - 29 mg/g ANDREA Urine 09/15/2023 9:30 AM CDT 09/15/2023 2:14 PM CDT Dora Arnold MD LAB URINE ORDERABLES Final Result [facility] [id number] Department [place] [address] * Lipid panel (09/15/2023 9:30 AM CDT) Cholesterol 186 30 - 199 mg/dL Comment: Interpretive Data Ages < or = 19 years ??Acceptable: ? <170 mg/dL ??Borderline high: ??170-199 mg/dL ??High: ? >or= 200 mg/dL Ages > or = 20 years ??Desirable: ?<200 mg/dL ??Borderline high: ??200-239 mg/dL ??High: ? >or= 240 mg/dL Literature References: 1. Expert Panel on Integrated Guidelines for Cardiovascular Health and Risk Reduction in Children and Adolescents. Pediatrics 2011;128:S213 2. NCEP Expert Panel. Circulation 2004;110:227 Current Interpretive Data was last revised on 2017. Triglycerides 126 <=149 mg/dL ANDREA Comment: Interpretive Data Ages < or = 9 years ??Acceptable: ? <75 mg/dL ??Borderline high: ??75-99 mg/dL ??High: ? >or= 100 mg/dL Ages 10 to 20 years ??Acceptable: ? <90 mg/dL ??Borderline high: ??90-129 mg/dL ??High: ? >or= 130 mg/dL Ages > or = 20 years ??Desirable: ?<150 mg/dL ??Borderline high: ??150-199 mg/dL ??High: ? 200-499 mg/dL ?Very high: ?? >or= 499 mg/dL Literature References: 1. Expert Panel on Integrated Guidelines for Cardiovascular Health and Risk Reduction in Children and Adolescents. Pediatrics 2011;128:S213 2. NCEP Expert Panel. Circulation 2004;110:227 Current Interpretive Data was last revised on 2017. HDL 47 >=40 mg/dL ANDREA FLORES Comment: Interpretive Data Ages < or = 19 years ??Acceptable: ? >45 mg/dL ??Borderline low: ?? 40-45 mg/dL ??Low: ? <40 mg/dL Ages > or = 20 years ??Desirable: ?>or= 60 mg/dL ??Low: ? <40 mg/dL Literature References: 1. Expert Panel on Integrated Guidelines for Cardiovascular Health and Risk Reduction in Children and Adolescents. Pediatrics 2011;128:S213 2. NCEP Expert Panel. Circulation 2004;110:227 Current Interpretive Data was last revised on 2017. LDL, calculated 114 <=129 mg/dL ANDREA FLORES Comment: Interpretive Data Ages < or = 19 years ??Acceptable: ? <110 mg/dL ??Borderline high: ??110-129 mg/dL ??High: ?>or= 130 mg/dL Ages > or = 20 years ??Optimal: ? <100 mg/dL ??Near optimal: ?100-129 mg/dL ??Borderline high: ?? 130-159 mg/dL ??High: ?>160 mg/dL Literature References: 1. Expert Panel on Integrated Guidelines for Cardiovascular Health and Risk Reduction in Children and Adolescents. Pediatrics 2011;128:S213 2. NCEP Expert Panel. Circulation 2004;110:227 Current Interpretive Data was last revised on 2017. Non-HDL Cholesterol 139 mg/dL ANDREA FLORES Comment: Interpretive Data Ages < or = 19 years ??Acceptable: ?<120 mg/dL ??Borderline high: ??120-144 mg/dL ??High: ?>145 mg/dL Ages > or = 20 years ??When triglycerides are >200 mg/dL, Non-HDL cholesterol is a secondary target of ? therapy with treatment goals that are 30 mg/dL greater than the LDL cholesterol target. ? Literature References: 1. Expert Panel on Integrated Guidelines for Cardiovascular Health and Risk Reduction in Children and Adolescents. Pediatrics 2011;128:S213 2. NCEP Expert Panel. Circulation 2004;110:227 Current Interpretive Data was last revised on 2017. Chol/HDL ratio 4 ANDREA FLORES Blood 09/15/2023 9:30 AM CDT 09/15/2023 2:14 PM CDT us Dora Arnold MD LAB BLOOD ORDERABLES Final Result [facility]RE[facility] [id number] [address] Department [place] [address] * Dexa Axial Skeleton Bone Density 1 or 2 Site (02/02/2023 2:40 PM NURSING UNIT COORDINATOR) Anatomical Region Laterality Modality Body N/A Other 02/02/2023 2:45 PM NURSING UNIT COORDINATOR Impressions 02/02/2023 2:45 PM NURSING UNIT COORDINATOR Normal bone mineral density of lumbar spine at L1-L4 Dear processes of the, total left hip and left femoral neck. 8.5 % decrease in bone mineral density in the spine and 5.3% decrease in the hip since previous study Electronically signed by: Bryce Davis M.D. Narrative 02/02/2023 2:45 PM NURSING UNIT COORDINATOR Examination: ??DEXA AXIAL SKELETON BONE DENSITY 1 OR MORE SITES Date: 02/02/2023 3:00 PM ? History: Osteoporosis screening. Comparison: 05/03/2018 Findings: The bone densitometry of the L1-L4 region, the left femoral neck and the total left hip was calculated using dual-energy x-ray absorptiometry. ? Summary: Bone mineral density (BMD) of the lumbar spine (L1-4): ??T-score 2.0; and 21% of normal ? Bone mineral density (BMD) of the total left hip: ??T-score -1.5; ??81% of normal ?? Bone mineral density (BMD) of the left femoral neck: ??T-score -2.9; T2% of normal ? Procedure Note Bryce Davis MD - 02/02/2023 Examination: DEXA AXIAL SKELETON BONE DENSITY 1 OR MORE SITES Date: 02/02/2023 3:00 PM History: Osteoporosis screening. Comparison: 05/03/2018 Findings: The bone densitometry of the L1-L4 region, the left femoral neck and the total left hip was calculated using dual-energy x-ray absorptiometry. Summary: Bone mineral density (BMD) of the lumbar spine (L1-4): T-score 2.0; and 21% of normal Bone mineral density (BMD) of the total left hip: T-score -1.5; 81% of normal Bone mineral density (BMD) of the left femoral neck: T-score -2.9; T2% of normal IMPRESSION: Normal bone mineral density of lumbar spine at L1-L4 Dear processes of the, total left hip and left femoral neck. 8.5 % decrease in bone mineral density in the spine and 5.3% decrease in the hip since previous study Electronically signed by: Bryce Davis M.D. Dora Arnold MD [facility] DXA PROCEDURES F inal Result * Hepatitis C antibody (06/05/2020 10:58 AM CDT) Hep C Ab <0.1 0.0 - 0.9 s/co ratio [facility] - 01 Comment: ?Negative: ? < 0.8 ? Indeterminate: 0.8 - 0.9 ?Positive: ? > 0.9 The CDC recommends that a positive HCV antibody result be followed up with a HCV Nucleic Acid Amplification test (049141). 06/05/2020 10:5 8 AM CDT 06/05/2020 Narrative [facility] - 06/06/2020 9:36 AM CDT Performed at: ??01 - [facility] [address], [place], [place] ??[id number] Receiving Room Clerk: Yehuda Rainey PhD, Phone: ??[phone] us Dora Arnold MD LAB MICROBIOLOGY - G ENERAL ORDERABLES Final Result [facility] - 01 * COLONOSCOPY (07/14/2017 1:06 PM CDT) Anatomical Region Laterality Modality Other Narrative Procedure Note Nelson Hinton MD - 07/14/2017 1:06 PM CDT [facility] Patient Name: Jane Walker Procedure Date: 07/14/2017 1:06 PM Date of : 1945 Admit Type: Outpatient Age: 72 Gender: Female Note Status: Finalized Attending MD: Nelson Hinton MD Procedure Date: 07/14/2017 Procedure: Colonoscopy Indications: Clinically significant diarrhea of unexplainedorigin; fecal leukocytes are positive. Providers: Nelson Hinton MD, Bel Mccall CRNA (Anesthesia Staff), Cherelle Forman RN Referring MD: Dora Arnold M.D. Medicines: Monitored Anesthesia Care Complications: No immediate complications. Estimated blood loss: Minimal. Estimated Blood Loss: Estimated blood loss was minimal. Procedure: Pre-Anesthesia Assessment: - Prior to the procedure, a History and Physical was performed, and patient medications and allergieswere reviewed. The patient is competent. The risks and benefits of the procedure and the sedation optionsand risks were discussed with the patient. All questions were answered and informed consent was obtained. Patient identification and proposed procedure were verified by the physician, the nurse and the nurse reviewer in the endoscopy suite. Mental Status Examination: alert and oriented. Airway Examination: normal oropharyngeal airway and neck mobility. Respiratory Examination: clear to auscultation. CV Examination: normal. Prophylactic Antibiotics: The patient does not require prophylactic antibiotics. Prior Anticoagulants: The patient has taken aspirin, last dose was 2 days prior to procedure. ASA Grade Assessment: III - A patient with severe systemic disease. After reviewing the risks and benefits, the patient was deemed in satisfactory condition toundergo the procedure. The anesthesia plan was to usemonitored anesthesia care (MAC). Immediately prior to administration of medications, the patient was re-assessed for adequacy to receive sedatives. The heart rate, respiratory rate, oxygen saturations,blood pressure, adequacy of pulmonary ventilation, and response to care were monitored throughout the procedure. The physical status of the patient was re-assessed after the procedure. - The risks and benefits of the procedure and the sedation options and risks were discussed with the patient. All questions were answered and informed consent was obtained. After I obtained informed consent, the scope waspassed under direct vision. Throughout the procedure, the patient's blood pressure, pulse, and oxygensaturations were monitored continuously. The scope was passedunder direct vision. The Colonoscope was introducedthrough the anus and advanced to the the terminal ileum. The colonoscopy was performed without difficulty. The patient tolerated the procedure well. The quality of the bowel preparation was good. The bowelpreparation used was SUPREP. Findings: The terminal ileum appeared normal. Biopsies were taken with a cold forceps for histology. Estimated blood loss was minimal. The colon (entire examined portion) appeared normal. Biopsies weretaken with a cold forceps for histology. Estimated blood loss wasminimal. Impression: - The examined portion of the ileum was normal. Biopsied. - The entire examined colon is normal. Biopsied. Recommendation: - Await pathology results. - Repeat colonoscopy in 10 years for screeningpurposes. Procedure Code(s): --- Professional --- 63163, Colonoscopy, flexible; with biopsy, single or multiple Diagnosis Code(s): --- Professional --- R19.7, Diarrhea, unspecified CPT copyright 2017 [employer]. All rights reserved. The codes documented in this report are preliminary and upon medical biller coder reviewmay be revised to meet current compliance requirements. Dr. Nelson Hinton MD Nelson Hinton MD 07/14/2017 1:56:55 PM This report has been electronically signed by the physician. Number of Addenda: 0 Note Initiated On: 07/14/2017 1:06 PM Nelson Hinton MD ENDOSCOPY PROCEDURES Final R esult from Last 3 Months or Most Recently Relevant to Health Maintenance Insurance [facility] MDCR HMO [facility]F [facility] MEDICARE Address: [address] [address] [place] [address] T MEDICARE [facility] MEDICARE Advance Directives For more information, please contact: [phone] * Full Code (Latest Code Status on File) Date Activated Date Inactivated Comments 07/05/2017 12:51 PM 07/06/2017 2:40 AM * Full Code Date Activated Date Inactivated Comments 06/23/2017 4:21 PM 06/24/2017 2:39 AM Care Teams Aboriginal Education Worker Coordinator Relationship Specialty Start Date End Date Dora Arnold MD [address] [facility] [address] [place], [place] [id number] PCP - General 05/20/16 [place] [address] [address] [facility] [address] [address] Consulting Physician Endocrinology Diabetes & Metabolism 03/22/[address] [place] [address] [address] [facility] [address] [address] Referring Physician Rheumatology 06/03/20 [place] [address] [address] [facility] [address] [place], [place] [id number] Consulting Physician Neurology 06/01/21
--- OUTSIDE RECORDS SUMMARY | 2024-03-22 09:22 | XMS_ITS | Encounter Summary ---
Author Organization [facility] Address [address] [place] [id number] Care Team Providers Care Prototype Sewer Name Role Phone Dora Arnold MD Primary Care Provid er Jeannine Gorman MD Unavailable Mick Way MD Unavailable [phone] Peri FLORES MD, Carlos M. Unavailable Reason for Visit * Reason Onset Date Comments Medical Question/Miscellaneous 03/01/2024 Encounter Details Date Type Department Care Team (Late st Contact Info) Description 03/01/[address] [facility] Medical Group at [address] [phone] Dora Arnold MD [address] [place] [id number] Medical Question/Miscellaneous Social History Tobacco Use Types Packs/Day Years [...] on file Legal Sex Female 4:08 PM RESIDENTIAL YOUTH COUNSELOR Gender Identity Female 08/24/2021 12:52 PM CDT Sexual Orientation Straight 03/05/2024 2: 15 PM RESIDENTIAL YOUTH COUNSELOR documented as of this encounter Miscellaneous Notes * Telephone Encounter - Johanny Funes - 03/01/2024 3:16 PM CST Medical Question/Miscellaneous Caller???s Concern: Patient stated her appointment on should have been a wellness visit. Asking for the coding to be changed to wellness visit so she can get his money back. Does message need to be routed? Yes-Action Needed DENTIAL YOUTH COUNSELOR documented in this encounter Plan of Treatment Scheduled Procedures Name Priority Associated Diagnoses Date/Ti me INJECTION EPIDURAL LUMBAR/CA UDAL 1 LEVEL PAIN PUMP TRIAL W IMAGING 38800 Lumbar radiculopathy documented as of this encounter Visit Diagnoses Not on filedocumented in this encounter Care Teams Prototype Sewer Relationship Specialty Start Date End Date Dora Arnold MD [address] [facility] [address] [place], [place] [id number] PCP - General 05/20/16 [place] [address] [address] [facility] [address], [place] [address] Consulting Physician Endocrinology Diabetes & Metabolism 03/22/[address] [place] [address] [address] [facility] [address] [address] Referring Physician Rheumatology 06/03/20 [place] [address] [address] [facility] [address] [place] [address] Consulting Physician Neurology 06/01/21 documented as of this encounter
--- OUTSIDE RECORDS SUMMARY | 2024-03-22 09:22 | XMS_ITS | Referral Summary ---
Author Organization [facility] Address [address] [place] [address] Care Team Providers Care Manufacturing Plant Manager Name Role Phone Dora Arnold MD Primary Care Provid er Jeannine Gorman MD Unavailable Mick Way MD Unavailable [phone] Peri FLORES MD, Carlos M. Unavailable [phone] Encounters Date Type Department Care Team Description 03/20/2024 12:53 PM DIE CAST TECHNICIAN - 03/20/2024 11:59 PM [facility] Hospital Encounter [address] [address] Fatigue; Screening for diabetes mellitus (DM); Vitamin D deficiency Discharge Disposition: Discharge to home or self care 03/20/2024 12:00 PM DIE CAST TECHNICIAN Lab [facility] Outpatient Lab at [address] [phone] Fatigue (Primary Dx); Screening for diabetes mellitus (DM); Vitamin D deficiency 03/08/2024 [address]phone [facility] [id number] [place] [phone] Jeannine Gorman MD 03/05/2024 3:10 PM DIE CAST TECHNICIAN Lab [address] [phone] Hyperthyroidism 03/05/2024 11:51 AM DIE CAST TECHNICIAN - 03/05/2024 11:59 PM DIE CAST TECHNICIAN Hospital Encounter [facility] Imaging and Radiology [address] [place] [phone] Encounter for screening mammogram for malignant neoplasm of breast Discharge Disposition: Discharge to home or self care 03/05/2024 2:30 PM DIE CAST TECHNICIAN Office Visit [facility] Specialists of [address] [phone] Jeannine Gorman MD Type 2 diabetes mellitus with hyperglycemia, without long-term current use of insulin (HCC) (Primary Dx); Hyperthyroidism; Chronic wound 03/01/2024 Telephone [facility] at [address] [phone] Dora Arnold MD Medical Question/Miscellaneous 02/06/2024 11:15 AM DIE CAST TECHNICIAN Office Visit [facility] Special[facility] Of [address] [phone] Azam Whitt II, MD Type 2 diabetes mellitus with diabetic polyneuropathy, unspecified whether fdc insulin use (HCC) (Primary Dx); Neuropathic pain of both feet 01/24/2024 1:30 PM DIE CAST TECHNICIAN Office Visit [facility] at [address] [phone] Dora Arnold MD Flu vaccine need (Primary [...] myelopathy; Psoriasis with arthropathy (HCC) 12/21/2023 Telephone [facility] Diabetes and Endocrinology [address] [place] [phone] Cori West NP Appointment from Last 3 Months Allergies Active Allergy Reactions Criticality Noted Date [...] comments) Low 10/27/2020 Semaglutide Diarrhea,Vomiting High 03/23/2021 Zqnrymu-Mbf-Vjs Reductase Inhibitors Muscle pain High 03/05/2024 Sulfa [...] without long-term current use of insulin (HCC) ONE TOUCH Delica Plus Lancets Check blood sugar daily Dx: E11.65 200 each 3 4 Active Farxiga 10 mg tabletIndicatio ns:Type 2 diabetes mellitus with hyperglycemia, without long-term current use of insulin (HCC) TAKE 1 TABLET BY MOUTH DAILY 90 tablet 3 4 Active gabapentin (NEURONTIN) 600 mg tabletIndicatio ns:Neuropathic pain of both feet Take 1 tablet (600 mg total) by mouth 3 (three) times a day 270 tablet 3 4 Active Active Problems Problem Noted Date Diagnosed Date Chronic wound 03/05/2024 Assessment & Plan (03/05/2024 4:20 PM DIE CAST TECHNICIAN): Necrobiosis diabeticorum would be in the differential. Referral to wound care clinic at [facility] Statin intolerance 08/09/2022 Class 3 severe obesity due t o excess calories with serious comorbidity and body mass index (BMI) of 40.0 to 44.9 in adult 04/21/2022 Assessment & Plan (04/21/2022 1:49 PM DIE CAST TECHNICIAN): Discussed healthy diet and importance of regular physical activity (20- 30min/day, 150min/wk). Has been riding exercise bike 30 min 3x/wk at home. Walks around stores several times/wk. Hyperlipidemia associated with type 2 diabetes miller cid 04/20/2022 Assessment & Plan (04/27/2023 5:22 PM DIE CAST TECHNICIAN): Can not tolerate statin Start Zetia 10 mg daily Assessment & Plan (11/01/2022 1:52 PM CDT): LDL above goal Will try low dose rosuvastatin, 5 mg daily Assessment & Plan (04/21/2022 1:50 PM DIE CAST TECHNICIAN): Chronic problem. Not currently taking statin (muscle pain). Reports that primary had her stop some time ago. Last lipid panel: 05/26/21 LDL=82, TG=93 Will update lipid panel. Verified that she uses [facility]. Aware to check results/results letter in [facility]. Will contact by phone if needed. Essential hypertension, benign 01/20/2022 Assessment & Plan (01/20/2022 2:06 PM DIE CAST TECHNICIAN): Continue Lisinopril HCT Essential tremor 01/20/2022 Assessment & Plan (01/20/2022 1:59 PM DIE CAST TECHNICIAN): Worsening, off Propranolol Basal cell carcinoma (BCC) of skin of nose 01/20 Assessment & Plan (01/20/2022 2:05 PM DIE CAST TECHNICIAN): Recently dx She is considering surgery vs XRT Statin myopathy 01/20/2022 Assessment & Plan (01/20/2022 2:22 PM DIE CAST TECHNICIAN): New Dc statin Cervicalgia 12/19/2019 Cervical radiculopathy 12/19/2019 Cervical spinal stenosis 12/19/2019 Spondylosis of cervical 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 myelopathy 12/19/2019 Chronic bilateral low back pain with bilateral s ciatica 12/27/2017 Spinal stenosis of lumbar re gion with neurogenic claudication 12/27/2017 Radiculopathy, lumbosacral region 12/27/2017 Lumbosacral spondylosis without myelopathy 12/27 Painful diabetic neuropathy (CMS/HCC) 12/27/2017 Hyperthyroidism 10/24/2017 Assessment & Plan (03/05/2024 4:11 PM DIE CAST TECHNICIAN): Update TFTs Restart methimazole, if indicated Assessment & Plan (04/27/2023 5:21 PM DIE CAST TECHNICIAN): Chronic, with mild hypothyroidism Will stop methimazole Recheck TSH, free T4 and free T4 in 3 months Patient advised to call the office in case of she develops any new symptoms suggestive of hyperthyroidism Assessment & Plan (04/21/2022 1:54 PM DIE CAST TECHNICIAN): Chronic problem, controlled on current Tapazole 5mg M//. Last TFTs 12/2021. Will update today. Verified that she uses [facility]. Aware to check results/results letter in [facility]. Will contact by phone if needed. Will send Tapazole refills, once labs received, to [facility]. Assessment & Plan (01/04/2022 1:47 PM DIE CAST TECHNICIAN): Lower Tapazole o 5 mg , 3 days a week, - and Assessment & Plan (08/24/2021 3:03 PM CDT): [...] months. Assessment & Plan (12/24/2019 1:07 PM DIE CAST TECHNICIAN): Lower Tapazole to 5 mg 5 days a week Recheck in 3 m Assessment & Plan (05/23/2019 2:54 PM CDT): Check TFT's Adjust dose of Methimazole as indicated Assessment & Plan (12/25/2018 1:50 PM DIE CAST TECHNICIAN): I have recommended to stay off of [...] accordingly Assessment & Plan (03/27/2018 11:52 AM DIE CAST TECHNICIAN): Lower Tapazole to 5 mg 4 days a wk. Recheck levels in 2m F/u in 6 m Assessment & Plan (12/26/2017 9:25 AM DIE CAST TECHNICIAN): Lower Tapazole to 5 mg daily Recheck [...] I will talk to 1 of the suction plate carrier cleaner about the patient's thyroid labs. Assessment & [...] recommend she get in to see Dr. Osorio our neonatal specialist to have her back checked as well Vitamin D deficiency 03/30/2017 Assessment & Plan (03/30/2017 3:59 PM DIE CAST TECHNICIAN): Check 25 OH vit D Adjust dose [...] Overview (05/26/2016): GERD Deep vein thrombosis (DVT) ([facility]) 04/15/2014 Overview (05/26/2016): DVT Pulmonary embolism 04/15/2014 Overview (05/26/2016): PE Hyperlipidemia 07/06/2013 Overview (05/26/2016): Hyperlipidemia Assessment & Plan (01/20/2022 2:22 PM DIE CAST TECHNICIAN): Hold statin Assessment & Plan (08/25/2016 1:29 PM CDT): Lipid abnormalities are improving with treatment. Nutritional counseling was provided. Lipids will be reassessed 4mos. Low back pain 07/06/2013 Overview (05/25/2016): LUMBAGO Type 2 diabetes mellitus wit h hyperglycemia, without long-term current use of insulin 07/06/2013 Overview (05/27/2016): Diabetes mellitus Assessment & Plan (03/05/2024 4:11 PM DIE CAST TECHNICIAN): Chronic, stay Importance of diet and exercise was discussed Continue Farxiga Assessment & Plan (04/27/2023 5:22 PM DIE CAST TECHNICIAN): Chronic, well-controlled Diet and exercise Continue Farxiga [...] Farxiga Assessment & Plan (04/21/2022 1:51 PM DIE CAST TECHNICIAN): Chronic problem, improving with weight loss & watching intake. Continue Farxiga 10mg daily. UTD on DM eye exam. Will update labs today. Verified that she uses [facility]. Aware to check results/results letter in [facility]. Will contact by phone if needed. Discussed [...] infection. Assessment & Plan (01/04/2022 1:46 PM DIE CAST TECHNICIAN): Uncontrolled Pt to watch diet Start Farxiga [...] provided Assessment & Plan (03/23/2021 1:52 PM DIE CAST TECHNICIAN): Hba1c was Lab Results Component Value Date [...] recommended Assessment & Plan (12/24/2019 1:09 PM DIE CAST TECHNICIAN): Adequate glycemic control. Continue with Neurontin Assessment & Plan (12/25/2018 1:50 PM DIE CAST TECHNICIAN): Continue working on diet and exercise Repeat [...] Lisinopril Assessment & Plan (04/21/2022 1:52 PM DIE CAST TECHNICIAN): Chronic problem, controlled on current regimen of Lisinopril/hctz 20-12.5mg daily. No changes at this time. Will update labs. Verified that she uses [facility]. Aware to check results/results letter in [facility]. Will contact by phone if needed. Assessment & Plan (01/20/2022 2:06 PM DIE CAST TECHNICIAN): Lab Results Component Value Date HGBA1C 7.7 01/04/2022 ON Farxiga per endo Assessment & Plan (05/23/2019 2:55 PM CDT): Goal blood pressure is less than 140/85 Low salt diet recommended Daily aerobic exercise Continue current meds, including THIERRY-I or ARB Assessment & Plan (03/30/2017 4:08 PM DIE CAST TECHNICIAN): Goal blood pressure is less than 140/85 [...] TFTs Assessment & Plan (03/23/2021 1:53 PM DIE CAST TECHNICIAN): Thyroid function tests requested. Will adjust dose of Tapazole accordingly Assessment & Plan (06/23/2020 4:12 PM CDT): Thyroid ultrasound performed today See report Pure hyperglyceridemia 01/31/2012 Overview (05/25/2016): PURE HYPERGLYCERIDEMIA Neuropathic pain Resolved Problems Problem Noted Date Diagnosed Date Resolved Date Morbid obesity with BMI of 40.0-44.9, adult 05/08/2017 04/20/2022 Assessment & Plan (01/20/2022 2:05 PM DIE CAST TECHNICIAN): BMI Follow-up includes: nutrition counseling. Assessment & Plan (05/08/2017 12:08 PM CDT): The patient's current weight provides with a BMI over 41. She has work on a graduated low-impact exercise program in conjunction with proper dieting Morbid obesity ([facility]) 12/23/201502/2021 Overview (05/25/2016): MORBID OBESITY Type 2 diabetes mellitus 02/19/2014 Overview (05/28/2016): DMII WO CMP NT ST UNCNTR Assessment & Plan (05/23/2019 2:54 PM CDT): Off of meds Diet and exercise Check hba1c Assessment & Plan (03/30/2017 4:08 PM DIE CAST TECHNICIAN): Hba1c was 5.8 today, indicating adequate DM control 1800 calorie, consistent carb diet recommended 30 min daily aerobic and resistance exercise recommended Prevention and treatment of hyypoglcyemia discussed. Blood glucose monitoring with fingers sticks 1-2 x day . Foot care was discussed. Nontoxic uninodular goiter 10/17/2011 0 06/23/2020 Overview (05/26/2016): NONTOX UNINODULAR GOITER Assessment & Plan (12/25/2018 1:50 PM DIE CAST TECHNICIAN): The patient had FNA biopsy in the past which was negative Will repeat ultrasound next office visit Immunizations Name Administration Dates Next Due Influenza, [...] 10/07/2020,05/18/2010 ZOSTER LIVE 09/12/2012 ZOSTER Recombinant 10/14/2019,04/11/2019 Social History Tobacco Use Types Packs/Day Years [...] on file Legal Sex Female 4:08 PM DIE CAST TECHNICIAN Gender Identity Female 08/24/2021 12:52 PM CDT Sexual Orientation Straight 03/05/2024 2: 15 PM DIE CAST TECHNICIAN Last Filed Vital Signs Vital Sign Reading Time Taken Comments Blood Pressure 100/60 03/05/2024 2:25 PM DIE CAST TECHNICIAN Pulse 76 03/05/2024 2:25 PM DIE CAST TECHNICIAN Temperature 36.3 ??C (97.3 ??F) 04/19/2023 1:22 PM CS T Respiratory Rate 18 03/05/2024 2:25 PM DIE CAST TECHNICIAN Oxygen Saturation 96% 02/06/2024 10:52 AM DIE CAST TECHNICIAN Inhaled Oxygen Concentration - - Weight 103.9 kg (229 lb) 03/05/2024 2:25 PM DIE CAST TECHNICIAN Height 162.6 cm (5' 4 ) 03/05/2024 2:25 PM DIE CAST TECHNICIAN Body Mass Index 39.31 03/05/2024 2:25 PM DIE CAST TECHNICIAN Plan of Treatment Scheduled Procedures Name Priority Associated Diagnoses Date/Ti me INJECTION EPIDURAL LUMBAR/CA UDAL 1 LEVEL PAIN PUMP TRIAL W IMAGING [id number] Lumbar radiculopathy Procedures Procedure Name Priority Date/Time Associated Diagnosis Comments CLINICAL PATHOLOGY REPORT Routine 03/20/2024 12:53 PM DIE CAST TECHNICIAN EGFR Routine 03/20/2024 12:53 PM DIE CAST TECHNICIAN Fatigue Screening for diabetes mellitus (DM) DIFFERENTIAL AUTO Routine 03/20/2024 12: 53 PM DIE CAST TECHNICIAN Fatigue Screening for diabetes mellitus (DM) COMPREHENSIVE METABOLIC PANEL Routine 03/20/2024 12:53 PM DIE CAST TECHNICIAN Fatigue Screening for diabetes mellitus (DM) CBC WITH AUTO DIFFERENTIAL Routine 03/20/2024 12:53 PM DIE CAST TECHNICIAN Fatigue Screening for diabetes mellitus (DM) VITAMIN B12 Routine 03/20/2024 12:53 PM DIE CAST TECHNICIAN Fatigue Screening for diabetes mellitus (DM) FOLATE Routine 03/20/2024 12:53 PM DIE CAST TECHNICIAN Fatigue Screening for diabetes mellitus (DM) RHEUMATOID FACTOR Routine 03/20/2024 12: 53 PM DIE CAST TECHNICIAN Fatigue Screening for diabetes mellitus (DM) CYCLIC CITRUL PEPTIDE ANTIBODY, IGG Routine 03/20/2024 12:53 PM DIE CAST TECHNICIAN Fatigue Screening for diabetes mellitus (DM) VITAMIN D 25 HYDROXY Routine 03/20/2024 12:53 PM DIE CAST TECHNICIAN Fatigue Screening for diabetes mellitus (DM) Vitamin D deficiency T4, FREE Routine 03/20/2024 12:53 PM DIE CAST TECHNICIAN Fatigue Screening for diabetes mellitus (DM) FERRITIN Routine 03/20/2024 12:53 PM DIE CAST TECHNICIAN Fatigue Screening for diabetes mellitus (DM) CREATINE KINASE (CK), TOTAL Routine 03/20/2024 12:53 PM DIE CAST TECHNICIAN Fatigue Screening for diabetes mellitus (DM) URIC ACID Routine 03/20/2024 12:53 PM DIE CAST TECHNICIAN Fatigue Screening for diabetes mellitus (DM) ERYTHROCYTE SEDIMENTATION RATE Routine 03/20/2024 12:53 PM DIE CAST TECHNICIAN Fatigue Screening for diabetes mellitus (DM) CRP (ACUTE PHASE) Routine 03/20/2024 12: 53 PM DIE CAST TECHNICIAN Fatigue Screening for diabetes mellitus (DM) MAGNESIUM Routine 03/20/2024 12:53 PM DIE CAST TECHNICIAN Fatigue Screening for diabetes mellitus (DM) HEMOGLOBIN A1C Routine 03/20/2024 12:53 PM DIE CAST TECHNICIAN Fatigue Screening for diabetes mellitus (DM) T3, FREE Routine 03/05/2024 3:24 PM DIE CAST TECHNICIAN Hyperthyroidism T4, FREE Routine 03/05/2024 3:24 PM DIE CAST TECHNICIAN Hyperthyroidism TSH Routine 03/05/2024 3:24 PM DIE CAST TECHNICIAN Hyperthyroidism POCT GLUCOSE Routine 03/05/2024 2:28 PM DIE CAST TECHNICIAN Type 2 diabetes mellitus with hyperglycemia, without long-term current use of insulin (HCC) POCT HEMOGLOBIN A1C Routine 03/05/2024 2 :28 PM DIE CAST TECHNICIAN Type 2 diabetes mellitus with hyperglycemia, without long-term current use of insulin (HCC) SCREENING MAMMOGRAM BILATERAL W RAUL Schedule Routine, Read Routine (OP Routine) 03/05/2024 12:25 PM DIE CAST TECHNICIAN Encounter for screening mammogram for malignant neoplasm [...] Read Routine (OP Routine) 02/02/2023 2:40 PM DIE CAST TECHNICIAN Postmenopausal HEPATITIS C ANTIBODY Routine 06/05/2020 10:58 AM CDT COLONOSCOPY 07/14/2017 1:06 PM CDT from Last 3 Months or Most Recently Relevant to Health Maintenance Results * Clinical pathology report (03/20/2024 12:53 PM DIE CAST TECHNICIAN) Miscellaneous 03/20/2024 12: 53 PM DIE CAST TECHNICIAN 03/21/2024 8:20 AM DIE CAST TECHNICIAN Narrative 03/21/2024 4:23 PM DIE CAST TECHNICIAN EPIC results best viewed via link to PDF [facility] Department of Pathology [address] [place] [address] Final Report Note to Patients: This report [...] details. Patient Name: ? JANE WALKER Address: ??[address] [place] [address][birth year] Gender: ??F : ??1945 (Age: 78) Service: ?? Location: ?? Hospital #: ??[id number] Patient Type: ?? SPECIMEN Taken: ??03/20/2024 Received: ?? 03/21/2024 Accessioned: ??03/21/2024 Physician(s): ??Kimberli Gloria M.D. Specimen(s) Received A: Blood (serum) Serum [...] determined by the Surgical Pathology Department at [facility] as part of an ongoing quality process lead program and in compliance with federally mandated [...] characteristics determined by the Surgical Pathology Department [facility]. ??It has not been cleared or approved by the U. S. Food and Drug Administration. REPORT IMAGES AND SCANNED DOCUMENTS, IF INCLUDED, ONLY VIEWABLE IN PDF VERSION OF REPORTe o us Kimberli Gloria MD LAB PATHOLOGY ORDERABLES Final R esult * eGFR (03/20/2024 12:53 PM DIE CAST TECHNICIAN) eGFR 65 >=60 mL/min/1. 73 m2 Comment: [...] reviewed 2020. Blood 03/20/2024 12:5 3 PM DIE CAST TECHNICIAN 03/20/2024 10:37 PM DIE CAST TECHNICIAN us Kimberli Gloria MD LAB BLOOD ORDERABLES Final Resul t [facility] [address] Department [place] [address] * Differential, auto (03/20/2024 12:53 PM DIE CAST TECHNICIAN) Neutrophil abs 4.3 1.5 - 6.5 K/cumm Imm gran abs 0.0 0.0 - 0.1 K/cumm [facility] Lymphocyte abs 1.6 0.8 - 3.3 K/cumm [facility] Monocyte abs 0.5 0.2 - 0.8 K/cumm [facility] Eosinophil abs 0.4 0.0 - 0.5 K/cumm [facility] Basophil abs 0.1 0.0 - 0.1 K/cumm [facility] Neutrophil pct 62.9 % [facility] Comment: Interpretive Data Percent cell count reference ranges are not reported, since discordance with absolute values may lead to misinterpretation of CBC data. Current Interpretive Data was last revised on 2017. Imm gran pct 0.4 % [facility] Comment: Interpretive Data Percent cell count reference ranges are not reported, since discordance with absolute values may lead to misinterpretation of CBC data. Current Interpretive Data was last revised on 2017. Lymphocyte pct 23.1 % [facility] Comment: Interpretive Data Percent cell count reference ranges are not reported, since discordance with absolute values may lead to misinterpretation of CBC data. Current Interpretive Data was last revised on 2017. Monocyte pct 7.4 % [facility] Comment: Interpretive Data Percent cell [...] on 2017. Blood 03/20/2024 12:5 3 PM DIE CAST TECHNICIAN 03/20/2024 10:17 PM DIE CAST TECHNICIAN Kimberli Gloria MD LAB BLOOD ORDERABLES Final Resul t [facility] [address] Department [place] [address] * (ABNORMAL) CBC with auto differential (03/20/2024 12:53 PM DIE CAST TECHNICIAN) WBC 6.9 3.8 - 9.9 K/cumm Hgb 15.6(H) 11.9 - 15.5 g/dL [facility] Hct 50.1(H) 35.6 - 45.5 % [facility] Plt 287 150 - 400 K/cumm [facility] MPV 12.4(H) 9.1 - 12.3 fL [facility] RBC 5.24(H) 3.90 - 5.20 M/cumm [facility] MCV 95.6 81.3 - 96.4 fL [facility] MCH 29.8 27.1 - 33.3 pg [facility] MCHC 31.1(L) 32.3 - 35.7 g/dL [facility] RDW CV 13.7 11.1 - 14.9 % [facility] RDW SD 48.2(H) 35.7 - 48.1 fL [facility] NRBC abs 0.00 0.00 - 0.01 K/cumm [facility] Blood 03/20/2024 12:5 3 PM DIE CAST TECHNICIAN 03/20/2024 10:17 PM DIE CAST TECHNICIAN Narrative ANDREA - 03/20/2024 10:53 PM DIE CAST TECHNICIAN FAX RESULT TO [phone] KIMBERLI GLORIA Kimberli Gloria MD LAB BLOOD ORDERABLES Final Resul t Performing Organization Address [facility] de Phone Number ANDREA SANDRA [address] Department [email or web address] [address] * Cyclic citrul peptide antibody, IgG (03/20/2024 12:53 PM DIE CAST TECHNICIAN) CCP Ab <0.5 <=2.9 units/mL Comment: Interpretive data Negative: <3 units/mL Positive: > or equal to 3 units/mL Current interpretive data was last revised on 2016. Testing performed by: [facility], [address] [place]., [address] Blood 03/20/2024 12:5 3 PM DIE CAST TECHNICIAN 03/21/2024 9:56 AM DIE CAST TECHNICIAN Narrative [facility] - 03/21/2024 12:27 PM DIE CAST TECHNICIAN FAX RESULT TO [phone] KIMBERLI GLORIA us Kimberli Gloria MD LAB BLOOD ORDERABLES Final Resul t Performing Organization Address City/[facility]/ZIP Co de Phone Number ANDREA FLORES [address] Department [place] [employer] [place] [address] * Vitamin D 25 hydroxy (03/20/2024 12:53 PM DIE CAST TECHNICIAN) Pathologist [facility] Vitamin D 25-OH 51 30 - 80 ng/mL Blood 03/20/2024 12:5 3 PM DIE CAST TECHNICIAN 03/20/2024 10:17 PM DIE CAST TECHNICIAN Narrative [facility] - 03/20/2024 11:19 PM DIE CAST TECHNICIAN FAX RESULT TO [phone] KIMBERLI GLORIA us Kimberli Gloria MD LAB BLOOD ORDERABLES Final Resul t Performing Organization Address [facility] Co de Phone Number ANDREA [address] Department [place] [address] * Erythrocyte sedimentation rate (03/20/2024 12:53 PM DIE CAST TECHNICIAN) [facility] Erythrocyte sedimentation rate 5 1 - 30 mm/hr Blood (Blood, Venous) 03/20/2024 12:53 PM DIE CAST TECHNICIAN 03/20/2024 10:17 PM DIE CAST TECHNICIAN Narrative [facility] - 03/21/2024 12:50 AM DIE CAST TECHNICIAN FAX RESULT TO [phone] KIMBERLI GLORIA us Kimberli Gloria MD LAB BLOOD ORDERABLES Final Resul t Performing Organization Address [facility] Co de Phone Number ANDREA [address] Department [place] [address] * Rheumatoid factor (03/20/2024 12:53 PM DIE CAST TECHNICIAN) Pathologist [facility] Rheumatoid factor, quant <10 <=15 IUnits/mL Blood (Blood, Venous) 03/20/2024 12:53 PM DIE CAST TECHNICIAN 03/20/2024 10:17 PM DIE CAST TECHNICIAN Narrative [facility] - 03/20/2024 11:30 PM DIE CAST TECHNICIAN FAX RESULT TO [phone] KIMBERLI GLORIA us Kimberli Gloria MD LAB BLOOD ORDERABLES Final Resul t Performing Organization Address City/[facility] Co de Phone Number ANDREA FLORES [address] Department [place] [address] * CRP (acute phase) (03/20/2024 12:53 PM DIE CAST TECHNICIAN) CRP 3.2 <=10.0 mg/L Blood (Blood, Venous) 03/20/2024 12:53 PM DIE CAST TECHNICIAN 03/20/2024 10:17 PM DIE CAST TECHNICIAN Narrative [facility] - 03/20/2024 11:12 PM DIE CAST TECHNICIAN FAX RESULT TO [phone] KIMBERLI GLORIA us Kimberli Gloria MD LAB BLOOD ORDERABLES Final Resul t ANDREA [address] [place] [address] * Uric acid (03/20/2024 12:53 PM DIE CAST TECHNICIAN) Uric acid 5.4 2.5 - 7.0 mg/dL Blood (Blood, Venous) 03/20/2024 12:53 PM DIE CAST TECHNICIAN 03/20/2024 10:17 PM DIE CAST TECHNICIAN Narrative [facility] 03/20/2024 11:29 PM DIE CAST TECHNICIAN FAX RESULT TO [phone] KIMBERLI GLORIA us Kimberli Gloria MD LAB BLOOD ORDERABLES Final Resul t ANDREA [address] [place] [place] [address] * (ABNORMAL) T4, free (03/20/2024 12:53 PM DIE CAST TECHNICIAN) Free T4 0.88(L) 0.90 - 1.70 ng/dL Blood (Blood, Venous) 03/20/2024 12:53 PM DIE CAST TECHNICIAN 03/20/2024 10:17 PM DIE CAST TECHNICIAN Narrative [facility] - 03/20/2024 11:11 PM DIE CAST TECHNICIAN FAX RESULT TO [phone] KIMBERLI GLORIA us Kimberli Gloria MD LAB BLOOD ORDERABLES Final Resul t Performing Organization Address [facility] [facility] Co de Phone Number ANDREA [address] [place] [address] * Magnesium (03/20/2024 12:53 PM DIE CAST TECHNICIAN) Pathologist [facility] Magnesium 2.1 1.4 - 2.5 mg/dL Blood (Blood, Venous) 03/20/2024 12:53 PM DIE CAST TECHNICIAN 03/20/2024 10:17 PM DIE CAST TECHNICIAN Narrative ANDREA - 03/20/2024 11:11 PM DIE CAST TECHNICIAN FAX RESULT TO [phone] KIMBERLI GLORIA Kimberli Gloria MD LAB BLOOD ORDERABLES Final Resul t Performing Organization Address [facility] de Phone Number ANDREA [address] [place] [address] * (ABNORMAL) Hemoglobin A1c (03/20/2024 12:53 PM DIE CAST TECHNICIAN) Hgb A1C 7.1(H) 4.0 - 5.6 % Estimated Average Glucose 157 mg/dL ANDREA Comment: The ADA recommends reporting an estimated Average Glucose (eAG) with all Hemoglobin A1c results using the equation derived from a study of 507 normal and diabetic adults. ??Minority populations were underrepresented and children were not included. ?? (Diabetes Care 31:6048-5907, 2008). ??The eAG is not equivalent to a fasting glucose. Blood (Blood, Venous) 03/20/2024 12:53 PM DIE CAST TECHNICIAN 03/20/2024 10:17 PM DIE CAST TECHNICIAN Narrative ANDREA - 03/20/2024 11:04 PM DIE CAST TECHNICIAN FAX RESULT TO [phone] KIMBERLI GLORIA Kimberli Gloria MD LAB BLOOD ORDERABLES Final Resul t Performing Organization Address [facility] Co de Phone Number ANDREA [address] [place] [address] * Folate (03/20/2024 12:53 PM DIE CAST TECHNICIAN) [facility] Folic acid >20.0 >=5.0 ng/mL Comment:Hemolysis present. R esults may be affected. Blood 03/20/2024 12:5 3 PM DIE CAST TECHNICIAN 03/20/2024 10:17 PM DIE CAST TECHNICIAN us Kimberli Gloria MD LAB BLOOD ORDERABLES Final Resul t Performing Organization Address City/[facility] Co de Phone Number AGUSTOPHOEBE [address] [place] [address] * Ferritin (03/20/2024 12:53 PM DIE CAST TECHNICIAN) [facility] Ferritin 150 15 - 150 ng/mL Blood (Blood, Venous) 03/20/2024 12:53 PM DIE CAST TECHNICIAN 03/20/2024 10:17 PM DIE CAST TECHNICIAN Narrative [facility] 03/20/2024 11:11 PM DIE CAST TECHNICIAN FAX RESULT TO [phone] KIMBERLI GLORIA us Kimberli Gloria MD LAB BLOOD ORDERABLES Final Resul t Performing Organization Address [facility] Co de Phone Number ANDREA [address] [place] [address] * Vitamin B12 (03/20/2024 12:53 PM DIE CAST TECHNICIAN) [facility] Vitamin B12 450 230 - 1,250 pg/mL Blood (Blood, Venous) 03/20/2024 12:53 PM DIE CAST TECHNICIAN 03/20/2024 10:17 PM DIE CAST TECHNICIAN Narrative [facility] 03/20/2024 11:11 PM DIE CAST TECHNICIAN FAX RESULT TO [phone] KIMBERLI GLORIA us Kimberli Gloria MD LAB BLOOD ORDERABLES Final Resul t Performing Organization Address [facility] Co de Phone Number AGUSTOPHOEBE [address] [place] [address] * (ABNORMAL) Creatine kinase (CK), total (03/20/2024 12:53 PM DIE CAST TECHNICIAN) CK 25(L) 30 - 200 Units/L Blood (Blood, Venous) 03/20/2024 12:53 PM DIE CAST TECHNICIAN 03/20/2024 10:17 PM DIE CAST TECHNICIAN Narrative [facility] - 03/20/2024 11:11 PM DIE CAST TECHNICIAN FAX RESULT TO [phone] KIMBERLI GLORIA Kimberli Gloria MD LAB BLOOD ORDERABLES Final Resul t [facility] [address] Department [place] [address] * (ABNORMAL) Comprehensive metabolic panel (03/20/2024 12:53 PM DIE CAST TECHNICIAN) Pathologist [facility] Sodium 138 135 - 145 mmol/L Potassium, pl 4.3 3.3 - 4.9 mmol/L [facility] Chloride 99 97 - 110 mmol/L [facility] CO2 28 22 - 32 mmol/L [facility] Anion gap 11 2 - 15 mmol/L [facility] BUN 27(H) 6 - 25 mg/dL [facility] Creatinine 0.91 0.60 - 1.10 mg/dL [facility] Glucose 183 70 - 199 mg/dL [facility] Comment: Interpretive Data Fasting glucose >/= [...] CH AST 33 10 - 45 Units/L [facility] Blood (Blood, Venous) 03/20/2024 12:53 PM DIE CAST TECHNICIAN 03/20/2024 10:17 PM DIE CAST TECHNICIAN Narrative [facility] - 03/20/2024 11:11 PM DIE CAST TECHNICIAN FAX RESULT TO [phone] KIMBERLI GLORIA Kimberli Gloria MD LAB BLOOD ORDERABLES Final Resul t Performing Organization Address City/[facility] Co de Phone Number [facility] [address] [place] [address] * T3, free (03/05/2024 3:24 PM DIE CAST TECHNICIAN) Free T3 2.7 2.0 - 4.4 pg/mL Blood 03/05/2024 3:24 PM DIE CAST TECHNICIAN 03/05/2024 8:29 PM DIE CAST TECHNICIAN Jeannine Gorman MD LAB BLOOD ORDERABLES Final Resul t Performing Organization Address [facility] de Phone Number [facility] [address] [facility] [place] [address] * TSH (03/05/2024 3:24 PM DIE CAST TECHNICIAN) Thyroid Stimulating Hormone 1.74 0.30 - 4.20 mcIUnit/mL Blood 03/05/2024 3:24 PM DIE CAST TECHNICIAN 03/05/2024 8:29 PM DIE CAST TECHNICIAN Jeannine Gorman MD LAB BLOOD ORDERABLES Final Resul t Performing Organization Address [facility] Co de Phone Number [facility] [address] [address] [facility] [place] [address] * (ABNORMAL) T4, free (03/05/2024 3:24 PM DIE CAST TECHNICIAN) Free T4 0.83(L) 0.90 - 1.70 ng/dL Blood 03/05/2024 3:24 PM DIE CAST TECHNICIAN 03/05/2024 8:29 PM DIE CAST TECHNICIAN Result [facility] Jeannine Gorman MD LAB BLOOD ORDERABLES Final Resul t ANDREA FLORES [address] Department [place] [address] * (ABNORMAL) POCT hemoglobin A1c (03/05/2024 2:28 PM DIE CAST TECHNICIAN) Hemoglobin A1C, POC 7.4 4.0 - 5.6 % Comment:None Capillary blood 03/05/2024 2 :28 PM DIE CAST TECHNICIAN Result [facility] Jeannine Gorman MD POINT OF CARE TEST ORDERABLES Fi nal Result * (ABNORMAL) POCT glucose (03/05/2024 2:28 PM DIE CAST TECHNICIAN) Glucose Blood, POC 152 mg/dL Comment:None Blood 03/05/2024 2:28 PM DIE CAST TECHNICIAN Result [facility] Jeannine Gorman MD POINT OF CARE TEST ORDERABLES Fi nal Result * Screening Mammogram Bilateral W Raul (03/05/2024 12:25 PM DIE CAST TECHNICIAN) Anatomical Region Laterality Modality Breast Bilateral Mammography 03/05/2024 2:14 PM DIE CAST TECHNICIAN Impressions 03/05/2024 2:14 PM DIE CAST TECHNICIAN No evidence of malignancy in either breast. FINAL ASSESSMENT: BI-RADS Category 1: Negative. RECOMMENDATION: Recommend return for annual screening mammogram in 12 months. ?? Electronically signed by: JAYNE MOLINA MD Narrative 03/05/2024 2:14 PM DIE CAST TECHNICIAN EXAMINATION: BILATERAL SCREENING MAMMOGRAM COMPARISON: All prior mammograms dating back to 2019. TECHNIQUE: Full-field 2D and digital breast tomosynthesis (DBT) images were obtained. CAD was utilized. BREAST PARENCHYMAL COMPOSITION: ??There are scattered areas of fibroglandular density. FINDINGS: There is no suspicious mass, calcification, or distortion in either breast. Result [facility] Dora Arnold MD IMG MAMMO PROCEDURES Final Result * DIABETES EYE EXAM (11/14/2023 10:03 AM CDT) [...] Ur <23 1 - 29 mg/g ANDREA FLORES Urine 09/15/2023 9:30 AM CDT 09/15/2023 2:14 PM CDT Dora Arnold MD LAB URINE ORDERABLES Final Result ANDREA [address] Department [place] [address] * Lipid panel (09/15/2023 9:30 AM CDT) [...] on 2017. Triglycerides 126 <=149 mg/dL ANDREA FLORES Comment: Interpretive Data Ages [...] 2:14 PM CDT Dora Arnold MD LAB BLOOD ORDERABLES Final Result ANDREA [address] Department [place] [address] * Dexa Axial Skeleton Bone Density 1 or 2 Site (02/02/2023 2:40 PM DIE CAST TECHNICIAN) Anatomical Region Laterality Modality Body N/A Other 02/02/2023 2:45 PM DIE CAST TECHNICIAN Impressions 02/02/2023 2:45 PM DIE CAST TECHNICIAN Normal bone mineral density of lumbar spine at L1-L4 Dear processes of the, total left hip and left femoral neck. 8.5 % decrease in bone mineral density in the spine and 5.3% decrease in the hip since previous study Electronically signed by: Bryce Davis M.D. Narrative 02/02/2023 2:45 PM DIE CAST TECHNICIAN Examination: ??DEXA AXIAL SKELETON BONE DENSITY 1 [...] by: Bryce Davis M.D. Dora Arnold MD IM DXA PROCEDURES F inal Result * Hepatitis C antibody (06/05/2020 10:58 AM CDT) Hep C Ab <0.1 0.0 - 0.9 s/co ratio [facility] - 01 Comment: ?Negative: ? < 0.8 ? Indeterminate: 0.8 - 0.9 ?Positive: ? > 0.9 The CDC recommends that a positive HCV antibody result be followed up with a HCV Nucleic Acid Amplification test (502428). 06/05/2020 10:5 8 AM CDT 06/05/2020 Narrative [facility] - 06/06/2020 9:36 AM CDT Performed at: ??01 - [facility] [address] ??[id number] Shale Processing Technician: Yehuda Rainey PhD, Phone: ??[phone] Dora Arnold MD LAB MICROBIOLOGY - G ENERAL ORDERABLES Final Result [facility] - 01 * COLONOSCOPY (07/14/2017 1:06 PM CDT) Anatomical Region Laterality Modality Other Narrative Procedure Note Nelson Hinton MD - 07/14/2017 1:06 PM CDT - [facility] Endoscopy [facility] Patient Name: Jane Walker Procedure [...] by the physician, the nurse and the concrete buster operator in the endoscopy suite. Mental Status Examination: [...] for screeningpurposes. Procedure Code(s): --- Professional --- 12424, Colonoscopy, flexible; with biopsy, single or multiple Diagnosis Code(s): --- Professional --- R19.7, Diarrhea, unspecified CPT copyright 2017 [employer]. All rights reserved. The codes documented in this report are preliminary and upon press pipe inspector reviewmay be revised to meet current compliance requirements. Dr. Nelson Hinton MD Nelson Hinton MD 07/14/2017 1:56:55 PM This report has been electronically signed by the physician. Number of Addenda: 0 Note Initiated On: 07/14/2017 1:06 PM us Nelson Hinton MD ENDOSCOPY PROCEDURES Final R esult from Last 3 Months or Most Recently Relevant to Health Maintenance Insurance [facility] HMO REF [employer] MEDICARE [facility] Advance Directives For more information, please contact: [phone] * Full Code (Latest Code Status on File) Date Activated Date Inactivated Comments 07/05/2017 12:51 PM 07/06/2017 2:40 AM * Full Code Date Activated Date Inactivated Comments 06/23/2017 4:21 PM 06/24/2017 2:39 AM Care Teams Manufacturing Plant Manager Relationship Specialty Start Date End Date Dora Arnold MD [address] [facility] [address], [place] [address] PCP - General 05/20/16 [place] [address] [address] Consulting Physician Endocrinology Diabetes & Metabolism 03/22/[address] [place] [address] [address] Referring Physician Rheumatology 06/03/20 [place] [address] [address] Consulting Physician Neurology 06/01/21
--- OUTSIDE RECORDS SUMMARY | 2024-03-22 09:22 | XMS_ITS ---
Author Organization [facility] Address [facility] [place] [address] Care Team Providers Care Cost Accountant Name Role Phone Dora Arnold MD Primary Care Provid er Jeannine Gorman MD Unavailable Mick Way MD Unavailable [phone] Peri FLORES MD, Azam Ibarra Unavailable [phone] Active Problems Problem Noted Date Diagnosed Date Chronic wound 03/05/2024 Assessment & Plan (03/05/2024 4:20 PM SUGAR CHIPPER MACHINE OPERATOR): Necrobiosis diabeticorum would be in the differential. Referral to wound care clinic at [facility] Statin intolerance 08/09/2022 Class 3 severe obesity due t o excess calories with serious comorbidity and body mass index (BMI) of 40.0 to 44.9 in adult 04/21/2022 Assessment & Plan (04/21/2022 1:49 PM SUGAR CHIPPER MACHINE OPERATOR): Discussed healthy diet and importance of regular physical activity (20- 30min/day, 150min/wk). Has been riding exercise bike 30 min 3x/wk at home. Walks around stores several times/wk. Hyperlipidemia associated with type 2 diabetes miller cid 04/20/2022 Assessment & Plan (04/27/2023 5:22 PM SUGAR CHIPPER MACHINE OPERATOR): Can not tolerate statin Start Zetia 10 mg daily Assessment & Plan (11/01/2022 1:52 PM CDT): LDL above goal Will try low dose rosuvastatin, 5 mg daily Assessment & Plan (04/21/2022 1:50 PM SUGAR CHIPPER MACHINE OPERATOR): Chronic problem. Not currently taking statin (muscle pain). Reports that primary had her stop some time ago. Last lipid panel: 05/26/21 LDL=82, TG=93 Will update lipid panel. Verified that she uses [facility]. Aware to check results/results letter in [facility]. Will contact by phone if needed. Essential hypertension, benign 01/20/2022 Assessment & Plan (01/20/2022 2:06 PM SUGAR CHIPPER MACHINE OPERATOR): Continue Lisinopril HCT Essential tremor 01/20/2022 Assessment & Plan (01/20/2022 1:59 PM SUGAR CHIPPER MACHINE OPERATOR): Worsening, off Propranolol Basal cell carcinoma (BCC) of skin of nose 01/20 Assessment & Plan (01/20/2022 2:05 PM SUGAR CHIPPER MACHINE OPERATOR): Recently dx She is considering surgery vs XRT Statin myopathy 01/20/2022 Assessment & Plan (01/20/2022 2:22 PM SUGAR CHIPPER MACHINE OPERATOR): New Dc statin Cervicalgia 12/19/2019 Cervical radiculopathy 12/19/2019 Cervical spinal stenosis 12/19/2019 Spondylosis of cervical 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 myelopathy 12/19/2019 Chronic bilateral low back pain with bilateral s ciatica 12/27/2017 Spinal stenosis of lumbar re gion with neurogenic claudication 12/27/2017 Radiculopathy, lumbosacral region 12/27/2017 Lumbosacral spondylosis without myelopathy 12/27 Painful diabetic neuropathy (CMS/HCC) 12/27/2017 Hyperthyroidism 10/24/2017 Assessment & Plan (03/05/2024 4:11 PM SUGAR CHIPPER MACHINE OPERATOR): Update TFTs Restart methimazole, if indicated Assessment & Plan (04/27/2023 5:21 PM SUGAR CHIPPER MACHINE OPERATOR): Chronic, with mild hypothyroidism Will stop methimazole Recheck TSH, free T4 and free T4 in 3 months Patient advised to call the office in case of she develops any new symptoms suggestive of hyperthyroidism Assessment & Plan (04/21/2022 1:54 PM SUGAR CHIPPER MACHINE OPERATOR): Chronic problem, controlled on current Tapazole 5mg M/W/F. Last TFTs 12/2021. Will update today. Verified that she uses [facility]. Aware to check results/results letter in [facility]. Will contact by phone if needed. Will send Tapazole refills, once labs received, to [facility]. Assessment & Plan (01/04/2022 1:47 PM SUGAR CHIPPER MACHINE OPERATOR): Lower Tapazole o 5 mg , 3 [...] months. Assessment & Plan (12/24/2019 1:07 PM SUGAR CHIPPER MACHINE OPERATOR): Lower Tapazole to 5 mg 5 days a week Recheck in 3 m Assessment & Plan (05/23/2019 2:54 PM CDT): Check TFT's Adjust dose of Methimazole as indicated Assessment & Plan (12/25/2018 1:50 PM SUGAR CHIPPER MACHINE OPERATOR): I have recommended to stay off of [...] accordingly Assessment & Plan (03/27/2018 11:52 AM SUGAR CHIPPER MACHINE OPERATOR): Lower Tapazole to 5 mg 4 days a wk. Recheck levels in 2m F/u in 6 m Assessment & Plan (12/26/2017 9:25 AM SUGAR CHIPPER MACHINE OPERATOR): Lower Tapazole to 5 mg daily Recheck [...] I will talk to 1 of the evp strategy about the patient's thyroid labs. Assessment & [...] get in to see Dr. Osorio our account management specialist to have her back checked as well Vitamin D deficiency 03/30/2017 Assessment & Plan (03/30/2017 3:59 PM SUGAR CHIPPER MACHINE OPERATOR): Check 25 OH vit D Adjust dose [...] Overview (05/26/2016): GERD Deep vein thrombosis (DVT) ([facility]) 04/15/2014 Overview (05/26/2016): DVT Pulmonary embolism 04/15/2014 Overview (05/26/2016): PE Hyperlipidemia 07/06/2013 Overview (05/26/2016): Hyperlipidemia Assessment & Plan (01/20/2022 2:22 PM SUGAR CHIPPER MACHINE OPERATOR): Hold statin Assessment & Plan (08/25/2016 1:29 PM CDT): Lipid abnormalities are improving with treatment. Nutritional counseling was provided. Lipids will be reassessed 4mos. Low back pain 07/06/2013 Overview (05/25/2016): LUMBAGO Type 2 diabetes mellitus wit h hyperglycemia, without long-term current use of insulin 07/06/2013 Overview (05/27/2016): Diabetes mellitus Assessment & Plan (03/05/2024 4:11 PM SUGAR CHIPPER MACHINE OPERATOR): Chronic, stay Importance of diet and exercise was discussed Continue Farxiga Assessment & Plan (04/27/2023 5:22 PM SUGAR CHIPPER MACHINE OPERATOR): Chronic, well-controlled Diet and exercise Continue Farxiga [...] Farxiga Assessment & Plan (04/21/2022 1:51 PM SUGAR CHIPPER MACHINE OPERATOR): Chronic problem, improving with weight loss & watching intake. Continue Farxiga 10mg daily. UTD on DM eye exam. Will update labs today. Verified that she uses [facility]. Aware to check results/results letter in [facility]. Will contact by phone if needed. Discussed [...] infection. Assessment & Plan (01/04/2022 1:46 PM SUGAR CHIPPER MACHINE OPERATOR): Uncontrolled Pt to watch diet Start Farxiga [...] provided Assessment & Plan (03/23/2021 1:52 PM SUGAR CHIPPER MACHINE OPERATOR): Hba1c was Lab Results Component Value Date [...] recommended Assessment & Plan (12/24/2019 1:09 PM SUGAR CHIPPER MACHINE OPERATOR): Adequate glycemic control. Continue with Neurontin Assessment & Plan (12/25/2018 1:50 PM SUGAR CHIPPER MACHINE OPERATOR): Continue working on diet and exercise Repeat [...] Lisinopril Assessment & Plan (04/21/2022 1:52 PM SUGAR CHIPPER MACHINE OPERATOR): Chronic problem, controlled on current regimen of Lisinopril/hctz 20-12.5mg daily. No changes at this time. Will update labs. Verified that she uses [facility]. Aware to check results/results letter in [facility]. Will contact by phone if needed. Assessment & Plan (01/20/2022 2:06 PM SUGAR CHIPPER MACHINE OPERATOR): Lab Results Component Value Date HGBA1C 7.7 01/04/2022 ON Farxiga per endo Assessment & Plan (05/23/2019 2:55 PM CDT): Goal blood pressure is less than 140/85 Low salt diet recommended Daily aerobic exercise Continue current meds, including THIERRY-I or ARB Assessment & Plan (03/30/2017 4:08 PM SUGAR CHIPPER MACHINE OPERATOR): Goal blood pressure is less than 140/85 [...] TFTs Assessment & Plan (03/23/2021 1:53 PM SUGAR CHIPPER MACHINE OPERATOR): Thyroid function tests requested. Will adjust dose of Tapazole accordingly Assessment & Plan (06/23/2020 4:12 PM CDT): Thyroid ultrasound performed today See report Pure hyperglyceridemia 01/31/2012 Overview (05/25/2016): PURE HYPERGLYCERIDEMIA Neuropathic pain Current Oncology Plans No current plan information found. Past Plans No past plan information found. Radiation Treatments * No radiation treatments are documented for this patient in [facility]. Treatments may have been administered in another system. Lifetime Dose Tracking * Chemical Lifetime Dose Automatic Entry Manual Entr y Fluoro Time 0.477 minutes 0.477 minutes 0 minutes Air kerma at the reference point (Ka,r) 4.03 mGy 4 .03 mGy 0 mGy Resolved Problems Problem Noted Date Diagnosed Date Resolved Date Morbid obesity with BMI of 40.0-44.9, adult 05/08/2017 04/20/2022 Assessment & Plan (01/20/2022 2:05 PM SUGAR CHIPPER MACHINE OPERATOR): BMI Follow-up includes: nutrition counseling. Assessment & Plan (05/08/2017 12:08 PM CDT): The patient's current weight provides with a BMI over 41. She has work on a graduated low-impact exercise program in conjunction with proper dieting Morbid obesity ([facility]) 12/23/201502/2021 Overview (05/25/2016): MORBID OBESITY Type 2 diabetes mellitus 02/19/2014 Overview (05/28/2016): DMII WO CMP NT ST UNCNTR Assessment & Plan (05/23/2019 2:54 PM CDT): Off of meds Diet and exercise Check hba1c Assessment & Plan (03/30/2017 4:08 PM SUGAR CHIPPER MACHINE OPERATOR): Hba1c was 5.8 today, indicating adequate DM control 1800 calorie, consistent carb diet recommended 30 min daily aerobic and resistance exercise recommended Prevention and treatment of hyypoglcyemia discussed. Blood glucose monitoring with fingers sticks 1-2 x day . Foot care was discussed. Nontoxic uninodular goiter 10/17/2011 0 06/23/2020 Overview (05/26/2016): NONTOX UNINODULAR GOITER Assessment & Plan (12/25/2018 1:50 PM SUGAR CHIPPER MACHINE OPERATOR): The patient had FNA biopsy in the past which was negative Will repeat ultrasound next office visit
--- OUTSIDE RECORDS SUMMARY | 2024-03-22 09:22 | XMS_ITS | Encounter Summary ---
Author Organization [facility] Address [address] [place] [address] [place] [address] Care Team Providers Care Jukebox Coin Collector Name Role Phone Fide Brink MD Unavailable [phone] Lynn Lubin MD Unavailable [phone] Dora Arnold MD Primary Care Provid er Elysia Mtz RN Unavailable [phone] Encounter Details Date Type Department Care Team (Late st Contact Info) Description 05/30/2014 Therapy Visit EXTERNAL NON-[facility] DEPT Unknown, Provider [...] on filedocumented in this encounter Care Teams Jukebox Coin Collector Relationship Specialty Start Date End Date Dora Arnold MD [address] [place] [address] PCP - General Internal Medicine 03/06/14 Fide Brink MD Orthopedic Surgery 03/16/12 Lynn Lubin MD [address] [place] [address] Orthopedic Surgery 06/12/13 Elysia Mtz, RN .Net Developer 09/24/14 08/28/18 documented as of this encounter
== END 2024-03-22 08:58 | disposition home or self-care (01) ==
LOC: ANHIMG 09:00
PROVIDERS: PCP Internal Medicine; Visit Provider Internal Medicine Rheumatology
DX: M25.59 Pain in other specified joint (principal); Z96.652 Presence of left artificial knee joint; M25.462 Effusion, left knee; M23.42 Loose body in knee, left knee; M77.31 Calcaneal spur, right foot; M15.9 Polyosteoarthritis, unspecified
CPT/HCPCS: 73070; 73100; 73120; 73502; 73560; 73600; 73620